=== PATIENT | male | born 1940 | race Caucasian/White ===

== ENCOUNTER 2019-09-25 11:07 | Outpatient (RCR) | payer MEDICARE, SELFPAY ==
[2019-09-25 11:24] LABS: INR 1.4; Prothrombin Time 17.1 Seconds (11.1-14.7)
== END 2019-12-24 23:59 | disposition home or self-care (01) ==
LOC: ANHLAB 11:07
DX: I48.20 Chronic atrial fibrillation, unspecified (principal); I11.0 Hypertensive heart disease with heart failure; I25.10 Atherosclerotic heart disease of native coronary artery without angina pectoris; Z95.2 Presence of prosthetic heart valve
CPT/HCPCS: 85610

== ENCOUNTER 2019-09-27 10:36 | Outpatient (RCR) | payer MEDICARE, SELFPAY ==
[2019-09-27 11:01] LABS: INR 1.5; Prothrombin Time 17.5 Seconds (11.1-14.7)
== END 2019-12-26 23:59 | disposition home or self-care (01) ==
LOC: ANHLAB 10:36
DX: Z48.812 Encounter for surgical aftercare following surgery on the circulatory system (principal); I25.10 Atherosclerotic heart disease of native coronary artery without angina pectoris; I11.0 Hypertensive heart disease with heart failure; I50.9 Heart failure, unspecified; Z95.2 Presence of prosthetic heart valve
CPT/HCPCS: 36415; 85610

== ENCOUNTER 2020-03-19 17:12 | Inpatient (IN) | payer MEDICARE, SELFPAY ==
--- NOTE | ~2020-03-19 | US_ITS ---
EXAMINATION: US venous doppler [facility] DATE: 03/19/2020 18:42 INDICATION: Left lower limb edema TECHNIQUE: Valentin scale images without and with compression and Doppler images of the left lower extrem ity veins were obtained. COMPARISON: None FINDINGS: There is thrombosis in one of two peroneal veins. The left common femoral vein, profunda fe moral vein, femoral vein, popliteal vein, posterior tibial veins, and greater saphenous vein are hylton nt. IMPRESSION: 1. Thrombosis in one of two peroneal veins. These findings were discussed with Dr. Triny Pulido MD in the Emergency Department at 1847 hours on 03/19/2020. Reviewed, dictated and finalized at location A. IMPRESSION: 1. Thrombosis in one of two peroneal veins. These findings were discussed with Dr. Triny Pulido MD in the Emergency Department at 1847 hours on 03/19/2020 .
--- NOTE | ~2020-03-19 | CT_ITS ---
EXAMINATION: CTA chest PE protocol DATE: 03/20/2020 09:07 INDICATION: Shortness of breath, deep venous thrombosis TECHNIQUE: Computed tomography angiography (CTA) of the chest was performed with 100 mL Omnipaque-350 intravenous contrast timed to evaluate the pulmonary arteries. Coronal maximum intensity projection 3D-reconstructions were created by the technologist. The dose-length product (DLP) was 986.62 mGy-cm. Automated exposure control and iterative reconstruction technique were employed. COMPARISON: None. FINDINGS: The pulmonary arteries are well-opacified. There are emboli in segmental pulmonary arterial branches of the right upper and lower lobes. There are small pleural effusions. Dependent atelectasi s is noted. There is no pneumothorax. The heart size is normal. There are changes of coronary artery bypass grafting. A nodule of the left thyroid lobe measures up to 1.8 cm. There are no pathologically enlarged thoracic lymph nodes. Stones are present in the nondistended gallbladder. There are bridgin g osteophytes at multiple levels in the spine, consistent with diffuse idiopathic skeletal hyperostos is (DISH). IMPRESSION: 1. Pulmonary emboli in the right upper and lower lobes. These findings were discussed with the janae t's nurse on [facility] at 1215 hours on 03/20/2020. Reviewed, dictated and finalized at location A. IMPRESSION: 1. Pulmonary emboli in the right upper and lower lobes. These findings were dis cussed with the patient's nurse on [facility] at 1215 hours on 03/20/2020.
--- NOTE | ~2020-03-19 | XR_ITS ---
EXAMINATION: XR foot LT min 3V DATE: 03/19/2020 18:02 INDICATION: Foot pain, plantar surface wound TECHNIQUE: Dorsoplantar, lateral, and 2 oblique views of the left foot were obtained. COMPARISON: None. FINDINGS: Soft tissue swelling and ulceration is seen projecting at the plantar aspect of the foot de ep to the the tarsometatarsal joints on the lateral view. No definite acute changes in the tarsal bon es is identified. There is advanced osteoarthritis of the midfoot as well as at the first metatarsoph alangeal joint. There appears to be a healed fracture of the fifth metatarsal. IMPRESSION: 1. Plantar soft tissue ulceration of the midfoot. 2. Severe polyarticular osteoarthritis without acute osseous abnormality identified. Reviewed, dictated and finalized at location A. IMPRESSION: 1. Plantar soft tissue ulceration of the midfoot. 2. Severe polyarticular osteoarthritis without acute osseous abnormality identi fied.
--- NOTE | ~2020-03-19 | CT_ITS ---
EXAMINATION: CT ankle LT wo con INDICATION: Plantar abscess of the left foot TECHNIQUE: Computed tomographic images of the left ankle were obtained without contrast. The dose-darin gth product (DLP) was 441.97 mGy-cm. Automated exposure control and iterative reconstruction techniqu e were employed. COMPARISON: None FINDINGS: There is extensive soft tissue edema of the left leg. The area of concern at the plantar as pect of the left foot is not included on this ankle CT. No abnormal focal enhancement is identified. There is advanced osteoarthritis of the proximal and midfoot. IMPRESSION: 1. Plantar soft tissue abscess the foot not evaluated on this ankle CT. This was discussed with Dr. Nadya burger and MRI of the foot would BE obtained. 2. Advanced osteoarthritis of the foot. 3. Diffuse edema. Reviewed, dictated and finalized at location A. IMPRESSION: 1. Plantar soft tissue abscess the foot not evaluated on this ankle CT. This wa s discussed with Dr. Herman and MRI of the foot would BE obtained. 2. Advanced osteoarthritis of the foot. 3. Diffuse edema.
--- NOTE | ~2020-03-19 | MR_ITS ---
IMPRESSION: 1. Ulceration at the plantar aspect of the left midfoot. No abscess or T1 marro w signal changes to suggest osteomyelitis. 2. Charcot foot. EXAMINATION: MR foot LT wo/w con DATE: 03/20/2020 13:20 INDICATION: Evaluate for abscess at the plantar aspect of the left foot. TECHNIQUE: Magnetic resonance imaging (MRI) of the left midfoot was performed without and with 20 mL Multihance intravenous contrast. Sequences included axial, sagittal and coronal T1-weighted FSE and T 2-weighted FS FSE, axial T1-weighted FS FSE and postcontrast axial and coronal T1-weighted FS FSE. COMPARISON: Left ankle CT dated 03/20/2020 and left foot radiographs dated 03/19/2020 FINDINGS: Old healed fracture deformity at the diaphysis of the left fifth metatarsal. Suggestion of pes planus with findings consistent with chronic Charcot approximately involving multiple joints in the midfoot characterized by joint space narrowing with disorganization and destructive changes of the tarsal jian neha with increased density on radiographs and CT. There is likely reactive subarticular marrow edema and enhancement as well as subarticular cystic changes involving several of the tarsal bones related to the osteoarthritis. There is however no evident geographic loss of T1 marrow fat signal to suggest osteomyelitis. Skin ulceration at the plantar aspect of the midfoot. Extensive likely reactive soft tissue edema throughout the foot. No joint effusions or abscess. Partially visualized first metatarso phalangeal arthroplasty. IMPRESSION: 1. Ulceration at the plantar aspect of the left midfoot. No abscess or T1 marrow signal changes to pretty ggest osteomyelitis. 2. Charcot foot. Reviewed, dictated and finalized at location A.
[2020-03-19 17:17] VITALS: BP 156/89; PULSE 65; RESP 20; TEMP 36.4; O2SAT 98
--- NOTE | 2020-03-19 17:20 | ED.EXTPRO ---
HPI - Extremity Problem General Chief complaint: Extremity Problem,Nontraumatic Stated complaint: left foot wound Time Seen by Provider: 03/19/20 17:20 Source: patient, family and EMS Mode of arrival: EMS Limitations: no limitations History of Present Illness HPI Narrative: Patient is a 79-year-old male who presents for evaluation of left foot pain. Patient reports a small sore showed up on his left foot approximately 3 weeks ago, it has since grown in size and is causing increased pain. Pain is dull, aching in nature. Patient has not noticed any purulent discharge, but does report the wound is malodorous. Patient reportedly without fever, chills, nausea or vomiting. No weakness or numbness. He denies history of diabetes. He denies any trauma to the foot or stepping on any foreign body. Patient has no history of skin infection in the past. Related Data Home Medications Medication Instructions Recorded Confirmed aspirin [Aspirin Childrens] 81 mg PO DAILY 09/11/19 09/11/19 polyethylene glycol 3350 [Miralax] 17 g PO DAILY 09/11/19 09/11/19 bupropion HCl 150 mg PO QAM 03/19/20 furosemide 20 mg PO DAILY 03/19/20 levetiracetam 1,000 mg PO BID 03/19/20 losartan 50 mg PO BID 03/19/20 spironolactone 12.5 mg PO QTUTHSA 03/19/20 Allergies Allergy/AdvReac Type Severity Reaction Status Date / Time Penicillins Allergy Unknown Other Verified 03/19/20 17:25 tomato Allergy Unknown Other Verified 03/19/20 17:25 Review of Systems Review of Systems: Narrative: CONSTITUTIONAL: Denies fever CARDIOVASCULAR: Denies chest pain RESPIRATORY: Denies cough or dyspnea. GASTROINTESTINAL: Denies abdominal pain SKIN: Denies rash, reports wound on the inferior aspect of the left foot MUSCULOSKELETAL: Denies back pain, reports left foot pain NEUROLOGIC: Denies headache PMFSH Past Medical History Medical History (Updated 03/19/20 @ 19:46 by Triny Pulido MD) Cardiac abnormality Epilepsy Epistaxis Hyperlipidemia Hypertension Mitral valve insufficiency Surgical History Surgical History H/O mitral valve replacement Social History Social History Smoking status: Never smoker Second hand tobacco smoke exposure: No Alcohol intake: never Substance use: never Gender identity (if verbalized by the patient): Male Spiritual care concerns: No Agree to blood products: No Exam Narrative: Exam Narrative: GENERAL: Awake, alert, conversant HEAD: Normocephalic, atraumatic. EYES: PERRLA and EOMI. ENT: Nares clear, no rhinorrhea or epistaxis. Mucous membranes moist. NECK: Supple. CHEST: No respiratory distress, breathing even and non labored, midline surgical scar clean, dry, intact, well-healed HEART: Regular rate, sinus rhythm ABDOMEN:Non distended, non tender, umbilical hernia, no sign of incarceration EXTREMITIES: Normal range of motion. Bilateral lower extremity edema, pitting 2+ to the knees, chronic venous stasis changes, stage III ulceration, possible tunneling, malodorous, no crepitus, edema, erythema and warmth of the left foot SKIN: Warm, dry, no rash. NEURO:No focal deficits. Alert and oriented x3 Course Course Emergency Course: Patient presented to the emergency department for evaluation of foot pain. Patient found to have a foot ulceration over the past 3 weeks. Very malodorous. Patient has chronic venous stasis changes. Laboratory results show no severe elevation in leukocyte count, however does have elevation in ESR. Patient with possible tunneling of the left foot wound. No overlying eschar. Based on imaging, no concern for osteomyelitis. Patient does have left lower extremity DVT. Patient will require anticoagulation, but would also benefit from debridement. Given difficulty with ambulation due to foot pain, concern for fall on anticoagulation, patient may benefit from debridement while in the hospit
--- NOTE | 2020-03-19 17:21 | ECG_ITS ---
Measurements Intervals [place] Rate: 64 P: -52 [place]: 154 QRS: 1 QRSD: 106 T: 19 QT: 422 QTc: 435 Interpretive Statements SINUS RHYTHM DELAYED PRECORDIAL R/S TRANSITION BORDERLINE T WAVE ABNORMALITY- INFERIOR LEADS BASELINE ARTIFACT- II, III, AVF BORDERLINE ECG Electronically Signed On 03-20-2020 9:04:19 CDT by Aravind Huntley D.O.
[2020-03-19 18:17] LABS: Basophils Percent Auto 0.6 % (0.2-1.2); Eosinophils Absolute Auto 0.1 K/mm3 (0-0.3); Eosinophils Percent Auto 1.7 % (0-4.4); Hematocrit 32.4 % (42.0-52.0); Hemoglobin 10.6 g/dL (14.0-18.0); Immature Granulocyte Absolute 0.03 K/mm3 (0.00-0.031); Immature Granulocyte Percent A 0.6 % (0-0.5); Lymphocytes Absolute Auto 1.15 K/mm3 (0.9-3.2); Mean Corpuscular HGB Conc 32.7 g/dl (32-36); Mean Corpuscular Hemoglobin 30.8 pg (26-34); Mean Corpuscular Volume 94.2 fl (80-100); Mean Platelet Volume 10.7 fl (7.4-10.4); Monocytes Absolute Auto 0.5 K/mm3 (0.1-0.6); Monocytes Percent Auto 10.6 % (2.6-8.5); Neutrophils Percent Auto 62.5 % (45.5-73.1); Platelet Count Result 163 k/mm3 (150-375); Red Blood Count 3.44 M/mm3 (4.6-6.20); Red Cell Distribution Width 13.3 % (11.5-14.5); White Blood Count 4.8 K/mm3 (4.5-10.0)
[2020-03-19 18:26] LABS: Blood Urea Nitrogen 16 mg/dL (9-20); CRP 0.9 mg/dL (<1.0); Calcium 8.6 mg/dL (8.4-10.2); Carbon Dioxide 29 mmol/L (22-30); Chloride 105 mmol/L (98-107); Estimated CRCL calculation 71 ml/min; Estimated Glomerular Filt Rate > 60; Glucose 90 mg/dL (75-110); Potassium 4.1 mmol/L (3.4-5.0); Sodium 139 mmol/L (137-145)
[2020-03-19 18:51] LABS: Erythrocyte Sedimentation Rate 61 mm/hr (0-20)
[2020-03-19 19:06] VITALS: BP 157/80; PULSE 62; RESP 20; O2SAT 97
--- NOTE | 2020-03-19 19:15 | PC.NURSE ---
Assumed care of pt at this time. report from CORNELIO Dimas
--- NOTE | 2020-03-19 20:00 | PC.NURSE ---
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
--- NOTE | 2020-03-19 20:30 | PC.NURSE ---
Pt states he did not call anyone to come get . states he just updated his daughter and did not know he was supposed to have someone come get her. pt states there is no one to come get her and she has to come upstairs. informed pt we are not allowing any visitors.
[2020-03-19] MEDS: ENOXAPARIN 80 MG/0.8 ML SYRINGE 130 MG SUB-Q (20:46)
--- NOTE | 2020-03-19 20:50 | PC.NURSE ---
Pt states he was able to get someone to come get . They are on the way and he is ready to go upstairs.
[2020-03-19 21:00] VITALS: BP 166/87; PULSE 78; RESP 18; O2SAT 97
[2020-03-19] MEDS: metroNIDAZOLE 500 MG/ISO 100ML 500 MG/100 ML BAG 100 MG IVPB (21:08)
--- NOTE | 2020-03-19 21:25 | ADMGEN ---
This patient, Ayo Rodriguez, was admitted to Medical Room 347-. Patient/family oriented to hospital policies and general routines including ID bracelet, bed and alarms, visiting hours, pain management, procedures, bathroom and other care routines, personal items, smoking policy, room service/diet, and visiting hours. Valuables list has been completed. Information on how to activate the Rapid Response Team has been discussed. Patient/Family are encouraged to report perceived risks to care and to ask questions if they do not understand what they are told or what they should do.
[2020-03-19 21:35] VITALS: BP 152/74; PULSE 57; RESP 18; TEMP 36.4; O2SAT 99
[2020-03-19 21:37] VITALS: BMI 37.1
[2020-03-20] MEDS: metroNIDAZOLE 500 MG/ISO 100ML 500 MG/100 ML BAG 100 MG IVPB ×2 (00:21→06:07)
--- NOTE | 2020-03-20 00:51 | PM.IMHP ---
H&P: HPI History of Present Illness Chief complaint: Left foot pain Narrative: Date and time of patient contact: 03/19/2020 at 11:05 p.m. Ayo Rodriguez is a 79 year old male with a past medical history of mitral and tricuspid valve repair August 2019, CHF, untreated obstructive sleep apnea, and seizure disorder who presented to the ER with a left foot wound. The patient reports that he has had 3 weeks of a wound on his left foot. He reports that it started out as a swollen white area about the size of the tip of his thumb. The pain was initially only occurring when he would walk on the area. However, over the last 2 or 3 days he reports that the pain is been at least moderate in severity and constant in nature even with his leg elevated. He tried to attempt to walk to the bathroom but found from side to side down the vail because he could not put any weight on the foot. He reported that over the course of the last couple of weeks the area of the wound has gotten larger. He reported that instead of feeling like he was walking on a BB he instead felt as if he was walking on a large ball he reports the pain is severe when attempting to ambulate. His has told him that there was some redness surrounding the wound over the last several days. He has not noticed any calf pain and less trying to walk on the ulcerated foot. He has noticed increased lower extremity swelling for the last couple of weeks. He also has noticed postnasal drip, and did increased dyspnea on exertion. He reports that and the last week or so he has been spending most of his time in the recliner. Initially stated that this was due to his foot pain. But it appears that the patient is also having some orthopnea and postnasal drip. He reports that he has gained 40 lb since November. He attributes this to his 's dementia getting worse and him eating to soothe himself. He has gained over 80 lb in the last couple of years. He denies any increased lower extremity swelling. He reports that his legs have been more dry and flaky. He does have difficulty starting and stopping his urinary stream, he also reports dribbling of urine. He denies decreased strength of urinary stream. He has had a long history of erectile dysfunction. He denies any dysuria or hematuria. Reports normally formed bowel movements without hematochezia or melena. He does snore and has a significant history of obstructive sleep apnea but has been completely noncompliant with his BiPAP for the last month and only used intermittently before that time. He denies any chest pain or palpitations. He does have multiple bad teeth but denies any acute oral pain. He reports feeling more depressed and stressed as well as anxious regarding his 's declining mentation. He is worried about staying in the hospital as a friend took his home today but may not be able to care for her the entire time he is in the hospital. His daughter lives in [place]. Review of Systems Review of Systems: Narrative: 12 systems were reviewed with pertinent positives and negatives per HPI. Except as documented in the HPI, all other systems were reviewed and are negative. [facility] Past Medical History Medical History (Updated 03/20/20 @ 04:09 by Cecelia Waller, ) Anxiety Depression Diastolic dysfunction Noted on echocardiogram from 2015 Epistaxis Erectile dysfunction Esophagitis determined by biopsy Noted from EGD August [address] Gupta Gastritis and duodenitis Noted on EGD August [address] Costa Hyperlipidemia Hypertension Kidney stones Mitral valve insufficiency Status post repair [facility] August 2019 Moderate pulmonary arterial systolic hypertension Noted on echocardiogram from 2015 with RVSP of 50 Obstructive sleep apnea With polysomnogram in 2009 recommending return to sleep lab for ASV titration as the patient was still having apneic events with settings of 18/
[2020-03-20 02:02] LABS: Glucose Point of Care 102 (65-105)
[2020-03-20 06:00] VITALS: BP 145/90; PULSE 66; RESP 20; TEMP 36.3; O2SAT 96
--- NOTE | 2020-03-20 07:56 | PM.CNGS ---
Assessment and Plan Assessment and plan (1) Left foot infection: Code(s): L08.9 - Local infection of the skin and subcutaneous tissue, unspecified Status: Acute Assessment and Plan: it appears he has a plantar abscess on the left foot. I will go ahead and get a stat CT scan of the left foot. If an abscess is verified, will proceed with incision and drainage later today. (2) Peroneal DVT (deep venous thrombosis): Qualifiers: Chronicity: acute Laterality: left Qualified Code(s): I82.452 - Acute embolism and thrombosis of left peroneal vein Code(s): I82.459 - Acute embolism and thrombosis of unspecified peroneal vein Status: Acute Assessment and Plan: I will go ahead and hold his morning dose of Lovenox in anticipation of incision and drainage of the left foot. 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 He has a history of CHF and underwent repair of both his mitral and tricuspid valves back in August of 2019. For the last 3 weeks he has noticed a superficial ulcer and pain in the lateral plantar aspect of his left foot. Recently this has gotten much worse and was associated with swelling. He denies having stepped on anything or foreign body type injury. He came to the emergency room where he was noted to have swelling of the left foot with an ulcer in the described location. His white blood cell count was normal at 4800. He is anemic. He is not diabetic but does have significant obesity with a BMI of 37. He is noted to have venous stasis changes of both lower extremities. Plain films of the foot in the emergency room showed a plantar ulcer and severe poly articular osteoarthritis. The patient also had a venous Doppler and had perineal vein thrombosis. He has been started on a therapeutic dose of Lovenox subcu Q 12. He is seen now in consultation regarding his left foot infection and plantar ulcer. Review of Systems Review of Systems: All systems reviewed & are unremarkable except as noted in HPI and below ( HPI) Constitutional: Constitutional: Denies headache(s) ENT: Denies headache(s) Cardiovascular: Cardiovascular: Denies chest pain and Denies dyspnea Respiratory: Respiratory: Denies cough and Denies dyspnea Gastrointestinal: Gastrointestinal: Reports as per HPI Neurologic: Denies confusion and Denies headache(s) Psychiatric: Psychiatric: Denies confusion PMF Past Medical History Medical History Anxiety Depression Diastolic dysfunction Noted on echocardiogram from 2015 Epistaxis Erectile dysfunction Esophagitis determined by biopsy Noted from EGD August [address] Gupta Gastritis and duodenitis Noted on EGD August [address] Costa Hyperlipidemia Hypertension Kidney stones Mitral valve insufficiency Status post repair [facility] August 2019 Moderate pulmonary arterial systolic hypertension Noted on echocardiogram from 2015 with RVSP of 50 Obstructive sleep apnea With polysomnogram in 2009 recommending return to sleep lab for ASV titration as the patient was still having apneic events with settings of 18/14 on BiPAP Paroxysmal atrial fibrillation Following valve repair procedure. No longer on anticoagulation. Seizure disorder Multiple episodes of transient global amnesia thought to be possible partial seizure Tricuspid valve insufficiency, non-rheumatic Status post repair [facility] August 2019 Surgical History Surgical History History of appendectomy History of inguinal hernia repair, bilateral History of mitral valve repair History of tricuspid valve repair August 2019 at [facility] with postoperative course complicated by
[2020-03-20] MEDS: ASPIRIN 81 MG CHEWABLE TABLET PO (08:16)
[2020-03-20] MEDS: AMLODIPINE BESYLATE 5 MG TABLET 10 MG PO (08:16)
[2020-03-20] MEDS: buPROPion HCL XL (24 HR) 150 MG TABCR PO (08:16)
[2020-03-20] MEDS: LOSARTAN POTASSIUM 50 MG TABLET PO ×2 (08:17→16:44)
[2020-03-20] MEDS: levETIRAcetam 500 MG TABLET 1000 MG PO ×2 (08:17→16:44)
[2020-03-20] MEDS: FUROSEMIDE 20 MG TABLET 60 MG PO (08:17)
[2020-03-20] MEDS: TAMSULOSIN HCL 0.4 MG CAPSULE PO (08:18)
[2020-03-20] MEDS: SPIRONOLACTONE 12.5 MG TABLET PO (08:18)
--- NOTE | 2020-03-20 11:01 | PM.IMPN ---
Progress Note: A&P Assessment and Plan (1) Foot ulcer, left: Qualifiers: Non-pressure ulcer stage: unspecified non-pressure ulcer stage Qualified Code(s): L97.529 - Non-pressure chronic ulcer of other part of left foot with unspecified severity Code(s): L97.529 - Non-pressure chronic ulcer of other part of left foot with unspecified severity Status: Acute Assessment and Plan: I am suspicious that the patient's vitals are may need to be debrided. General surgery was consulted from the ER who ordered a CT of the patient's left foot for further evaluation for possible abscess. CT did not show him the results that he wanted an MRI was ordered for further evaluation. Will continue broad-spectrum antibiotic therapy with Levaquin and vancomycin Blood cultures have been obtained and are pending Continue monitoring the patient's symptoms, pain control, will order PT/OT since he has not been able to get around very well. (2) Peroneal DVT (deep venous thrombosis): Qualifiers: Chronicity: acute Laterality: left Qualified Code(s): I82.452 - Acute embolism and thrombosis of left peroneal vein Code(s): I82.459 - Acute embolism and thrombosis of unspecified peroneal vein Status: Acute Assessment and Plan: Patient was given Lovenox 1 time in the ER. Will continue b.i.d. Lovenox. Once his decided whether not the patient needs surgical treatment/debridement of his wound we may be able to transition the patient to Eliquis. He has been on Eliquis in the past with atrial fibrillation. Given his accompanying dyspnea will check a CTA to rule out concomitant pulmonary embolism. If CT is negative for pulmony embolism we may need to increase the patient's Lasix therapy and diurese the patient given his orthopnea, weight gain and dyspnea on exertion he may be having some component of CHF exacerbation. Pending CTA results. (3) Obstructive sleep apnea: Code(s): G47.33 - Obstructive sleep apnea (adult) (pediatric) Status: Acute Assessment and Plan: I have discussed the importance of stay BiPAP therapy with the patient. He is reluctant to comply with BiPAP therapy. He reports that his bookmobile driver has tried to encourage him to uses BiPAP therapy multiple times in the past in the patient is still reluctant to comply with BiPAP use. (4) Diastolic dysfunction: Code(s): I51.89 - Other ill-defined heart diseases Status: Acute Assessment and Plan: Chronic but possibly acute with increased weight gain, crackles the chest, but denies any leg swelling. Will continue him on his home medications at this time CTA was ordered to see if dyspnea on exertion is secondary to acute PT verses acute CHF exacerbation. Continue monitoring patient's symptoms and adjust diuretics if necessary. Time Spent With Patient Time with patient: 25 - 35 minutes Subjective Date/time seen: 03/20/20 11:01 Interval history: Date of service 03/20/2020: Patient reports feeling well today. He still having increased pain to his left foot when he bears weight. He also reports shortness of breath with exertion and movement in bed. He is eating and drinking without any issues. He denies any fevers, chills, chest pain, cough, nausea, vomiting, abdominal pain, increased leg swelling, calf pain or any other symptoms at this time. Review of Systems Review of Systems: All systems reviewed & are unremarkable except as noted in HPI and below Exam Narrative: Exam Narrative: General: 79-year-old man sitting up in bed watching TV. Appears comfortable. In no acute distress. Skin: No jaundice or cyanosis. Good skin turgor. Neck: Full range of motion. Supple. Respiratory: Decreased lung sounds and air mo
[2020-03-20] MEDS: ENOXAPARIN 80 MG/0.8 ML SYRINGE 130 MG SUB-Q ×2 (11:26→21:33)
--- NOTE | 2020-03-20 12:33 | PC.NURSE ---
Notified JOO Denis that the Radiologist called with the results of the CTA. The patient has right upper and lower pulmonary embolisms.
--- NOTE | 2020-03-20 13:52 | PCPTNOTE ---
Spoke with Rn, PT to hold therapy and check tomorrow due to recent medical issues/changes. Bobbi Tidwell PT
[2020-03-20 14:00] VITALS: BP 126/77; PULSE 87; RESP 18; TEMP 37; O2SAT 98
[2020-03-20] MEDS: ACETAMINOPHEN 500 MG TABLET 1000 MG PO (19:44)
[2020-03-20 22:00] VITALS: BP 137/82; PULSE 83; RESP 16; TEMP 36.8; O2SAT 96
[2020-03-21 06:00] VITALS: BP 135/75; PULSE 85; RESP 20; TEMP 36.7; O2SAT 96
[2020-03-21 06:28] LABS: Basophils Percent Auto 0.6 % (0.2-1.2); Eosinophils Absolute Auto 0.1 K/mm3 (0-0.3); Eosinophils Percent Auto 1.8 % (0-4.4); Hematocrit 32.2 % (42.0-52.0); Hemoglobin 10.8 g/dL (14.0-18.0); Immature Granulocyte Absolute 0.02 K/mm3 (0.00-0.031); Immature Granulocyte Percent A 0.4 % (0-0.5); Lymphocytes Absolute Auto 1.03 K/mm3 (0.9-3.2); Lymphocytes Percent Auto 18.9 % (18.3-44.2); Mean Corpuscular HGB Conc 33.5 g/dl (32-36); Mean Corpuscular Hemoglobin 30.9 pg (26-34); Mean Platelet Volume 10.9 fl (7.4-10.4); Monocytes Absolute Auto 0.6 K/mm3 (0.1-0.6); Monocytes Percent Auto 10.1 % (2.6-8.5); Neutrophils Absolute Auto 3.7 K/mm3 (1.3-6.7); Neutrophils Percent Auto 68.2 % (45.5-73.1); Platelet Count Result 166 k/mm3 (150-375); Red Cell Distribution Width 13.2 % (11.5-14.5); White Blood Count 5.5 K/mm3 (4.5-10.0)
[2020-03-21 06:41] LABS: Blood Urea Nitrogen 14 mg/dL (9-20); Calcium 8.5 mg/dL (8.4-10.2); Carbon Dioxide 30 mmol/L (22-30); Chloride 101 mmol/L (98-107); Estimated CRCL calculation 60 ml/min; Estimated Glomerular Filt Rate 54; Glucose 106 mg/dL (75-110); Potassium 3.4 mmol/L (3.4-5.0); Sodium 136 mmol/L (137-145)
[2020-03-21] MEDS: ASPIRIN 81 MG CHEWABLE TABLET PO (08:08)
[2020-03-21] MEDS: TAMSULOSIN HCL 0.4 MG CAPSULE PO (08:08)
[2020-03-21] MEDS: levETIRAcetam 500 MG TABLET 1000 MG PO ×2 (08:08→17:19)
[2020-03-21] MEDS: AMLODIPINE BESYLATE 5 MG TABLET 10 MG PO (08:09)
[2020-03-21] MEDS: FUROSEMIDE 20 MG TABLET 60 MG PO (08:09)
[2020-03-21] MEDS: LOSARTAN POTASSIUM 50 MG TABLET PO ×2 (08:09→17:19)
[2020-03-21] MEDS: buPROPion HCL XL (24 HR) 150 MG TABCR PO (08:09)
[2020-03-21] MEDS: ENOXAPARIN 80 MG/0.8 ML SYRINGE 130 MG SUB-Q ×2 (08:10→20:10)
--- NOTE | 2020-03-21 11:31 | PM.PNGS ---
Progress Note: A&P Assessment and Plan (1) Left foot infection: Code(s): L08.9 - Local infection of the skin and subcutaneous tissue, unspecified Status: Acute Assessment and Plan: improving with antibiotics. No abscess seen on imaging. Continue present treatment. (2) Charcot's joint of foot: Code(s): M14.679 - Charcot's joint, unspecified ankle and foot Status: Chronic Assessment and Plan: Noted on MRI of the foot. Subjective Subjective Date/Time Seen: 03/21/20 11:31 Patient reports: no new complaints and feels better ( pain is better in his left foot) Review of Systems Review of Systems: All systems reviewed & are unremarkable except as noted in HPI and below Constitutional: Constitutional: Denies headache(s) ENT: Denies headache(s) Cardiovascular: Cardiovascular: Denies chest pain and Denies dyspnea Respiratory: Respiratory: Denies cough and Denies dyspnea Gastrointestinal: Gastrointestinal: Reports as per HPI Neurologic: Denies confusion and Denies headache(s) Psychiatric: Psychiatric: Denies confusion Exam Const: General: comfortable and no acute distress; No confusion Orientation/consciousness: patient oriented x3 and No confusion Neuro: General: patient oriented x3, no focal motor deficits and No confusion Extrem: Left lower extremity: foot ( plantar ulcer with swelling is less tender today, no drainage) Psych: Affect: normal affect Insight: Good insight present (Psych) Judgement: Good judgement present (Psych) Objective Data Vital Signs Vital Signs: Vital Signs - 24 hr 03/20/20 14:00 03/20/20 22:00 03/21/20 06:00 Temperature 37.0 C 36.8 C 36.7 C Pulse Rate 87 83 85 Respiratory Rate 18 16 20 Blood Pressure 126/77 137/82 135/75 Pulse Oximetry 98 96 96 Intake/Output Intake/Output: Intake & Output 03/18/20 03/19/20 03/20/20 03/21/20 23:59 23:59 23:59 23:59 Intake Total 150 2690 680 Output Total 2630 350 Balance 150 60 330 Meds/Results Medications: Active Medications Generic Name Dose Route Start Last Admin Trade Name Freq PRN Reason Stop Dose Admin Acetaminophen 1,000 mg 03/20/20 00:50 03/20/20 19:44 Tylenol Tablet PO 1,000 mg Q6H PRN Administration Mild Pain (1-3) Or Fever Amlodipine Besylate 10 mg 03/20/20 09:00 03/21/20 08:09 Norvasc PO 10 mg DAILY TARYN Administration Aspirin 81 mg 03/20/20 08:00 03/21/20 08:08 Aspirin Chewable PO 81 mg DAILY@0800 TARYN Administration Bupropion HCl 150 mg 03/20/20 09:00 03/21/20 08:09 Wellbutrin Xl (24 Hr) PO 150 mg QAM TARYN Administration Enoxaparin Sodium 130 mg 03/20/20 09:00 03/21/20 08:10 Lovenox SUB-Q 130 mg Q12HR TARYN Administration Furosemide 60 mg 03/20/20 09:00 03/21/20 08:09 Lasix Tablet PO 60 mg DAILY TARYN Administration Levofloxacin/Dextrose 750 mg in 150 mls @ 100 mls/hr 03/20/20 18:00 03/20/20 20:10 Levaquin 750 Mg/D5w 150 Ml IVPB Infused QPM TARYN Infusion Vancomycin HCl 2,000 mg in 500 mls @ 250 mls/hr 03/19/20 22:00 03/21/20 09:45 Vancomycin 2,000 Mg/D5w 500 Ml IVPB 250 mls/hr Q18H TARYN Administration Levetiracetam 1,000 mg 03/20/20 09:00 03/21/20 08:08 Keppra Tablet PO 1,000 mg BID TARYN Administration Losartan Potassium 50 mg 03/20/20 09:00 03/21/20 08:09 Cozaar PO 50 mg BID TARYN Administration Polyethylene Glycol 17 gm 03/20/20 09:00 03/21/20 08:15 Miralax PO Not Given DAILY [facility] Spironolactone 12.5 mg 03/20/20 09:00 03/20/20 08:18 Aldactone PO 12.5 mg TuThSa@0900 TARYN Administration Tamsulosin HCl 0.4 mg 03/20/20 09:00 03/21/20 08:08 Flomax PO 0.4 mg QAM TARYN Administration Radiology Results: ITS Impressions Foot X-Ray 03/19/20 18:15 IMPRESSION: 1. Plantar soft tissue ulceration of the midfoot. 2. Severe polyarticular osteoarthritis without acute osseous abnormality identified. Venous Doppler Study
[2020-03-21 14:00] VITALS: BP 126/78; PULSE 79; RESP 18; TEMP 36.5; O2SAT 95
--- NOTE | 2020-03-21 16:04 | PM.IMPN ---
Progress Note: A&P Assessment and Plan (1) Foot ulcer, left: Qualifiers: Non-pressure ulcer stage: unspecified non-pressure ulcer stage Qualified Code(s): L97.529 - Non-pressure chronic ulcer of other part of left foot with unspecified severity Code(s): L97.529 - Non-pressure chronic ulcer of other part of left foot with unspecified severity Status: Acute Assessment and Plan: I am suspicious that the patient's vitals are may need to be debrided. General surgery was consulted from the ER who ordered a CT of the patient's left foot for further evaluation for possible abscess. CT ankle did not show his foot very well. MRI of his foot showed Ulceration at the plantar aspect of the left midfoot. No abscess or T1 marrow signal changes to suggest osteomyelitis. Charcot foot. Will continue broad-spectrum antibiotic therapy with Levaquin and vancomycin Blood cultures have been obtained and are pending Dr. Herman general surgery consulted Dr. Tristan orthopedic surgeon for further evaluation on the patient's findings and Charcot foot Continue monitoring the patient's symptoms, pain control, will order PT/OT since he has not been able to get around very well. (2) Charcot's joint of foot: Code(s): M14.679 - Charcot's joint, unspecified ankle and foot Status: Chronic Assessment and Plan: See above (3) Peroneal DVT (deep venous thrombosis): Qualifiers: Chronicity: acute Laterality: left Qualified Code(s): I82.452 - Acute embolism and thrombosis of left peroneal vein Code(s): I82.459 - Acute embolism and thrombosis of unspecified peroneal vein Status: Acute Assessment and Plan: Patient was given Lovenox 1 time in the ER. Will continue b.i.d. Lovenox. Once his decided whether not the patient needs surgical treatment/debridement of his wound we may be able to transition the patient to Eliquis. He has been on Eliquis in the past with atrial fibrillation. CTA chest shows pulmonary emboli in the right upper and lower lobes. It also shows some small pleural effusions. Will continue with anticoagulation for DVT and PE and plan is to discharge him on Eliquis once ready. (4) Pulmonary embolism: Code(s): I26.99 - Other pulmonary embolism without acute cor pulmonale Status: Acute Assessment and Plan: CT found pulmonary embolism to the right upper and lower lobes. Plan is to continue anticoagulation and discharged on Eliquis. Since he has PEs we will order an echocardiogram of his heart for further evaluation to make sure he is not have any right heart strain. (5) Diastolic dysfunction: Code(s): I51.89 - Other ill-defined heart diseases Status: Acute Assessment and Plan: Chronic but possibly acute with increased weight gain, crackles the chest, but denies any leg swelling. CTA found an acute PT. No signs of acute CHF exacerbation. Will continue his home medications for CHF. Continue monitoring patient's symptoms and adjust diuretics if necessary. (6) Obstructive sleep apnea: Code(s): G47.33 - Obstructive sleep apnea (adult) (pediatric) Status: Acute Assessment and Plan: I have discussed the importance of stay BiPAP therapy with the patient. He is reluctant to comply with BiPAP therapy. 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 Time Spent With Patient Time with patient: 25 - 35 minutes Subjective Date/time seen: 03/21/20 16:04 Interval history: Date of service 03/21/2020: Patient reports feel
[2020-03-21 22:00] VITALS: BP 131/72; PULSE 90; RESP 18; TEMP 36.8; O2SAT 97
--- NOTE | 2020-03-22 | ECHO_ITS ---
Patient Info Name: Ayo Rodriguez Age: 79 years : 1940 Gender: Male Ht: 71 in Wt: 281 lbs BSA: 2.58 m2 BP: 124 / 75 mmHg Heart Rhythm: Sinus Rhythm Technical Quality: Good Exam Date: 03/22/2020 2:30 PM Exam Location: [facility] Patient Status: Inpatient Admit Date: 03/22/2020 Staff Ordering Physician: Sparkle Medeiros PA-C Jack Machine Operator: Neftaly Diaz RDCS, RT Attending Provider: Sparkle Medeiros PA-C Referring Physician: Mala HIGUERA; Exam Type: CA echo dop color flow w con Study Info Indications I50.9 - Heart failure, unspecified Complete two-dimensional, color flow and Doppler transthoracic echocardiogram is performed. Summary 1. Left ventricular chamber dimension is normal. 2. Left ventricular systolic function is normal, estimated at 65-70%. 3. There is moderately increased left ventricular wall thickness. 4. Left ventricular septal wall motion is normal. 5. The left ventricular diastolic function is grade I diastolic dysfunction. 6. Right ventricular chamber dimension is mildly enlarged. 7. Left atrial chamber dimension is mildly enlarged. 8. The mitral valve has calcified leaflets and calcified annulus. 9. There is mild to moderate mitral valve regurgitation. 10. There is mild pulmonic regurgitation. 11. The aorta arch size is mildly dilated measuring 3.60 cm. 12. The aortic root size at the sinus of Valsalva is mildly dilated. Left Ventricle Left ventricular chamber dimension is normal. Left ventricular systolic function is normal, estimated at 65-70%. There is moderately increased left ventricular wall thickness. Left ventricular septal wall motion is normal. The left ventricular diastolic function is grade I diastolic dysfunction. Right Ventricle Right ventricular chamber dimension is mildly enlarged. Right ventricular systolic function is normal. Left Atria Left atrial chamber dimension is mildly enlarged. Right Atria Right atrial chamber dimension is normal. Atrial Septum Intact interatrial septum visualized by color flow imaging. Aortic Valve The aortic valve is trileaflet. There is mild aortic valve sclerosis. There is no aortic valve stenosis. There is trace aortic valve regurgitation. Pulmonic Valve The pulmonic valve is normal. There is no pulmonic valve stenosis. There is mild pulmonic regurgitation. Mitral Valve The mitral valve has calcified leaflets and calcified annulus. There is no mitral valve stenosis. There is mild to moderate mitral valve regurgitation. Tricuspid Valve The tricuspid valve leaflets are normal. There is no significant tricuspid valve stenosis. There is trace tricuspid valve regurgitation. Pericardium/Pleural The pericardium appears normal. There is no pericardial effusion. Inferior Vena Cava Normal inferior vena cava with >50% collapse upon inspiration consistent with normal right atrial pressure, 5 mmHg. Aorta The aorta arch size is mildly dilated measuring 3.60 cm. The aortic root size at the sinus of Valsalva is mildly dilated. The prox ascending aorta size is normal. Left Ventricular Outflow Tract Name Value Normal LVOT 2D LVOT Diameter 2.09 cm LVOT Doppl
[2020-03-22 03:42] LABS: Blood Urea Nitrogen 13 mg/dL (9-20); Calcium 8.4 mg/dL (8.4-10.2); Carbon Dioxide 31 mmol/L (22-30); Chloride 101 mmol/L (98-107); Estimated CRCL calculation 56 ml/min; Estimated Glomerular Filt Rate 49; Glucose 101 mg/dL (75-110); Magnesium 1.9 mg/dL (1.6-2.3); Potassium 3.4 mmol/L (3.4-5.0); Sodium 137 mmol/L (137-145)
[2020-03-22 03:56] LABS: Hematocrit 33.2 % (42.0-52.0); Hemoglobin 10.9 g/dL (14.0-18.0); Mean Corpuscular HGB Conc 32.8 g/dl (32-36); Mean Corpuscular Volume 94.3 fl (80-100); Mean Platelet Volume 11.4 fl (7.4-10.4); Platelet Count Result 156 k/mm3 (150-375); Red Blood Count 3.52 M/mm3 (4.6-6.20); Red Cell Distribution Width 13.4 % (11.5-14.5); White Blood Count 5.2 K/mm3 (4.5-10.0)
[2020-03-22 05:32] LABS: Vancomycin Trough 16.4 ug/mL (10.0-20.0)
[2020-03-22 05:53] VITALS: BP 124/75; PULSE 84; RESP 16; TEMP 37; O2SAT 98
--- NOTE | 2020-03-22 07:46 | PM.PNGS ---
Progress Note: A&P Assessment and Plan (1) Left foot infection: Code(s): L08.9 - Local infection of the skin and subcutaneous tissue, unspecified Status: Acute Assessment and Plan: improving with antibiotics. No abscess by MRI of the foot. I will go ahead and consult Dr. Tristan to see if anything further can be done. I really have nothing more to offer. (2) Charcot's joint of foot: Code(s): M14.679 - Charcot's joint, unspecified ankle and foot Status: Chronic Assessment and Plan: Dr. Tristan to see. (3) Pulmonary embolism: Code(s): I26.99 - Other pulmonary embolism without acute cor pulmonale Status: Acute Assessment and Plan: CTA shows right upper lobe and right lower lobe emboli. On therapeutic dose of Lovenox. Subjective Subjective Date/Time Seen: 03/22/20 07:46 Patient reports: feels better and pain is less Interval history: Has been walking to the bathroom on his left foot with little discomfort. He is using a walker. Review of Systems Review of Systems: All systems reviewed & are unremarkable except as noted in HPI and below Constitutional: Constitutional: Denies headache(s) ENT: Denies headache(s) Cardiovascular: Cardiovascular: Denies chest pain and Denies dyspnea Respiratory: Respiratory: Denies cough and Denies dyspnea Gastrointestinal: Gastrointestinal: Reports as per HPI Neurologic: Denies confusion and Denies headache(s) Psychiatric: Psychiatric: Denies confusion Exam Const: General: comfortable and no acute distress; No confusion Orientation/consciousness: patient oriented x3 and No confusion Neuro: General: patient oriented x3, no focal motor deficits and No confusion Extrem: General: no calf tenderness bilaterally and edema bilateral ( Lymphedema has improved during hospitalization.) Left lower extremity: foot ( Plantar ulcer with swelling less tender, no drainage) Details: other ( Appearance has change little other than tenderness is much better) Psych: Affect: normal affect Insight: Good insight present (Psych) Judgement: Good judgement present (Psych) Objective Data Vital Signs Vital Signs: Vital Signs - 24 hr 03/21/20 14:00 03/21/20 22:00 03/22/20 05:53 Temperature 36.5 C 36.8 C 37.0 C Pulse Rate 79 90 84 Respiratory Rate 18 18 16 Blood Pressure 126/78 131/72 124/75 Pulse Oximetry 95 97 98 Intake/Output Intake/Output: Intake & Output 03/19/20 03/20/20 03/21/20 03/22/20 23:59 23:59 23:59 23:59 Intake Total 150 2690 3090 Output Total 2630 2790 Balance 150 60 300 Meds/Results Medications: Active Medications Generic Name Dose Route Start Last Admin Trade Name Freq PRN Reason Stop Dose Admin Acetaminophen 1,000 mg 03/20/20 00:50 03/20/20 19:44 Tylenol Tablet PO 1,000 mg Q6H PRN Administration Mild Pain (1-3) Or Fever Amlodipine Besylate 10 mg 03/20/20 09:00 03/21/20 08:09 Norvasc PO 10 mg DAILY TARYN Administration Aspirin 81 mg 03/20/20 08:00 03/21/20 08:08 Aspirin Chewable PO 81 mg DAILY@0800 TARYN Administration Bupropion HCl 150 mg 03/20/20 09:00 03/21/20 08:09 Wellbutrin Xl (24 Hr) PO 150 mg QAM TARYN Administration Enoxaparin Sodium 130 mg 03/20/20 09:00 03/21/20 20:10 Lovenox SUB-Q 130 mg Q12HR TARYN Administration Furosemide 60 mg 03/20/20 09:00 03/21/20 08:09 Lasix Tablet PO 60 mg DAILY TARYN Administration Levofloxacin/Dextrose 750 mg in 150 mls @ 100 mls/hr 03/20/20 18:00 03/21/20 20:10 Levaquin 750 Mg/D5w 150 Ml IVPB Infused QPM TARYN Infusion Vancomycin HCl 2,000 mg in 500 mls @ 250 mls/hr 03/22/20 10:00 Vancomycin 2,000 Mg/D5w 500 Ml IVPB Q24H TARYN Levetiracetam 1,000 mg 03/20/20 09:00 03/21/20 17:19 Keppra Tablet PO 1,000 mg BID TARYN Administration Losartan Potassium 50 mg 03/20/20 09:00 03/21/20 17:19 Cozaar PO 50 mg BID TARYN Administration Polyethylene Glycol
[2020-03-22] MEDS: levETIRAcetam 500 MG TABLET 1000 MG PO ×2 (08:39→16:36)
[2020-03-22] MEDS: buPROPion HCL XL (24 HR) 150 MG TABCR PO (08:39)
[2020-03-22] MEDS: AMLODIPINE BESYLATE 5 MG TABLET 10 MG PO (08:39)
[2020-03-22] MEDS: FUROSEMIDE 20 MG TABLET 60 MG PO (08:40)
[2020-03-22] MEDS: TAMSULOSIN HCL 0.4 MG CAPSULE PO (08:40)
[2020-03-22] MEDS: LOSARTAN POTASSIUM 50 MG TABLET PO ×2 (08:40→16:36)
[2020-03-22] MEDS: ASPIRIN 81 MG CHEWABLE TABLET PO (08:40)
[2020-03-22] MEDS: ENOXAPARIN 80 MG/0.8 ML SYRINGE 130 MG SUB-Q ×2 (08:40→22:03)
[2020-03-22] MEDS: EUCERIN CREAM 120 GM JAR 1 APPLIC TOPICAL (10:04)
--- NOTE | 2020-03-22 10:53 | PM.IMPN ---
Progress Note: A&P Assessment and Plan (1) Foot ulcer, left: Qualifiers: Non-pressure ulcer stage: unspecified non-pressure ulcer stage Qualified Code(s): L97.529 - Non-pressure chronic ulcer of other part of left foot with unspecified severity Code(s): L97.529 - Non-pressure chronic ulcer of other part of left foot with unspecified severity Status: Acute Assessment and Plan: I am suspicious that the patient's wound may need to be debrided. General surgery was consulted from the ER who ordered a MRI of his foot showing Ulceration at the plantar aspect of the left midfoot. No abscess or T1 marrow signal changes to suggest osteomyelitis. Charcot foot. Dr. Herman general surgery consulted Dr. Tristan orthopedic surgeon for further evaluation on the patient's findings and Charcot foot. Initial blood culture results returned and 1 anaerobic bottle is growing Gram-positive bacilli. The other bottle shows no growth at this time Will continue broad-spectrum antibiotic therapy with Levaquin and vancomycin Continue monitoring the patient's symptoms, pain control, will order PT/OT since he has not been able to get around very well. 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 The last few days the patient has had some friends stay with her but he is running out of options. The patient does have a daughter who lives in [place] but states he does not want to bother her. He states he might need to leave against medical advice if cannot find any assistance for his . I told him that if he leaves against medical advice then he has the risk of having a worsening blood infection, becoming septic and dying. The patient understands the risks and he will try and make other arrangements before his last option which would be leaving against medical advice. (2) Charcot's joint of foot: Code(s): M14.679 - Charcot's joint, unspecified ankle and foot Status: Chronic Assessment and Plan: See above (3) Peroneal DVT (deep venous thrombosis): Qualifiers: Chronicity: acute Laterality: left Qualified Code(s): I82.452 - Acute embolism and thrombosis of left peroneal vein Code(s): I82.459 - Acute embolism and thrombosis of unspecified peroneal vein Status: Acute Assessment and Plan: Acute PE and DVT most likely from increased sedentary lifestyle, and sleeping in a chair with his legs on the ground. Patient has been on Lovenox b.i.d. for treatment of his PE and DVT. Once his decided whether not the patient needs surgical treatment/debridement of his wound we may be able to transition the patient to Eliquis. He has been on Eliquis in the past with atrial fibrillation. CTA chest shows pulmonary emboli in the right upper and lower lobes. It also shows some small pleural effusions. Will continue with anticoagulation for DVT and PE and plan is to discharge him on Eliquis once ready. (4) Pulmonary embolism: Code(s): I26.99 - Other pulmonary embolism without acute cor pulmonale Status: Acute Assessment and Plan: Acute PE. CT found pulmonary embolism to the right upper and lower lobes. Plan is to continue anticoagulation and discharged on Eliquis. Pending echocardiogram results. Since he has PEs we will order an echocardiogram of his heart for further evaluation to make sure he is not have any right heart strain. (5) Diastolic dysfunction: Code(s): I51.89 - Other ill-defined heart diseases Status: Acute Assessment and Plan: Chronic but possibly acute with increased weight gain, crackles the chest, but denies any leg swelling. CTA found an acute PE. No signs of acute CHF exacerbation. Will
[2020-03-22 14:00] VITALS: BP 146/65; PULSE 78; RESP 16; TEMP 36.2; O2SAT 96
--- NOTE | 2020-03-22 14:27 | PM.CNOR ---
Assessment and Plan Assessment and plan (1) Foot ulcer, left: Qualifiers: Non-pressure ulcer stage: unspecified non-pressure ulcer stage Qualified Code(s): L97.529 - Non-pressure chronic ulcer of other part of left foot with unspecified severity Code(s): L97.529 - Non-pressure chronic ulcer of other part of left foot with unspecified severity Status: Acute Assessment and Plan: Orthopedic consult for left plantar foot ulcer. Superficial area on the plantar aspect of the left midfoot which does not probe beneath the skin surface. Radiographs/MRI of the left foot reveal Charcot and ulcer without evidence of osteomyelitis or abscess at this time. Marked improvement in erythema surrounding wound per hospitalist, nurse and patient s/p IV antibiotics. History, exam and radiographs reviewed with the patient. Condition, nature, etiology and course of natural history discussed. Conservative and operative treatment options reviewed as well as the risks and benefits of both. 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 Given wound is not currently open, patient may benefit from conservative treatment and monitoring as an outpatient. Plan to continue antibiotics per hospitalist at this time given positive blood cultures. . Patient to be fit with Fracture Boot for the LLE. Apply mepitel boarder dressing for additional cushioning. Pull back dressing daily for skin assessment. Change every 2 days. Walker for PWB on heel. Keep pressure off midfoot. Elevate b/l feet when in bed. Follow up as an outpatient in the [facility] wound clinic for further monitoring and potential surgical intervention in the future once wound declares itself. Will set appointment pending discharge planning. (2) Charcot's joint of foot: Qualifiers: Laterality: left Qualified Code(s): M14.672 - Charcot's joint, left ankle and foot Code(s): M14.679 - Charcot's joint, unspecified ankle and foot Status: Chronic Assessment and Plan: Patient will need custom orthotics/depth shoes pending closure of superficial foot ulcer. History of Present Illness HPI Consult date: 03/22/20 Requesting physician: Lauri Herman MD Consult reason: other (Left Plantar Foot Ulcer ) Chief complaint: Infected foot wound, DVT Narrative: 79 year old male admitted with a left plantar DFU which began approximately 3 weeks ago. Per patient report, he was previously evaluated for Charcot of the left foot by a doctor in [place], [place] 2 years ago and fitted for orthotics. He is not currently followed by a physician or carpet renovator and has not ever worn his orthotics/depth shoes as he does not feel they are wide enough and hurt his feet more. He first noticed the area of concern on the plantar aspect of the left foot 3 weeks ago with increasing pain over the last several days, prompting him to call EMS for transportation to the hospital. He underwent a foot xray upon admission which revealed a plantar soft tissue ulceration of the midfoot and severe polyarticular osteoarthritis. An MRI of the foot confirms Charcot and no abscess of the ulceration or changes to suggest osteomyelitis. Orthopedic surgery consult was requested by general surgery. 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 Review of Systems Constitutional: Constitutional: Denies chills, Denies fatigue and Denies weakness Eyes: Eyes: Denies blurry vision Cardiovascular: Cardiovascular: Denies chest pain, Reports pedal edema (left ), Reports leg edema (bilateral LE ) and Denies lightheadedness Respiratory: Respiratory: Denies cough and Denies dyspnea Gastrointestinal: Gastrointestinal: Denies abdominal pain, Denies diarrhea, Denies nausea and Denies vomiting Comments: hernia Genitourinary: Genitourinary: Denies dysuria Musculoskeletal: Musculoskeletal:
[2020-03-22] MEDS: PERFLUTREN LIPID MICROSPHERES 1.5 ML VIAL DILUTED TO 10 ML TOTAL VOLUME IV PUSH (15:49)
[2020-03-22 20:55] VITALS: BP 140/75; PULSE 97; RESP 14; TEMP 36.9; O2SAT 94
[2020-03-22 22:00] VITALS: PULSE 97; RESP 14; O2SAT 94
[2020-03-23 05:38] LABS: Basophils Percent Auto 0.4 % (0.2-1.2); Eosinophils Absolute Auto 0.1 K/mm3 (0-0.3); Eosinophils Percent Auto 1.3 % (0-4.4); Hematocrit 33.4 % (42.0-52.0); Immature Granulocyte Absolute 0.05 K/mm3 (0.00-0.031); Immature Granulocyte Percent A 0.7 % (0-0.5); Lymphocytes Percent Auto 14.8 % (18.3-44.2); Mean Corpuscular HGB Conc 32.9 g/dl (32-36); Mean Corpuscular Hemoglobin 30.8 pg (26-34); Mean Corpuscular Volume 93.6 fl (80-100); Mean Platelet Volume 11.3 fl (7.4-10.4); Monocytes Absolute Auto 0.8 K/mm3 (0.1-0.6); Monocytes Percent Auto 12.3 % (2.6-8.5); Neutrophils Absolute Auto 4.8 K/mm3 (1.3-6.7); Neutrophils Percent Auto 70.5 % (45.5-73.1); Platelet Count Result 159 k/mm3 (150-375); Red Blood Count 3.57 M/mm3 (4.6-6.20); Red Cell Distribution Width 13.2 % (11.5-14.5); White Blood Count 6.8 K/mm3 (4.5-10.0)
[2020-03-23 05:52] LABS: Blood Urea Nitrogen 19 mg/dL (9-20); Calcium 8.6 mg/dL (8.4-10.2); Carbon Dioxide 32 mmol/L (22-30); Chloride 101 mmol/L (98-107); Estimated CRCL calculation 56 ml/min; Estimated Glomerular Filt Rate 49; Glucose 130 mg/dL (75-110); Potassium 3.2 mmol/L (3.4-5.0); Sodium 136 mmol/L (137-145)
[2020-03-23 06:00] VITALS: BP 124/72; PULSE 81; RESP 18; TEMP 36.9; O2SAT 94
[2020-03-23] MEDS: levETIRAcetam 500 MG TABLET 1000 MG PO ×2 (08:12→17:45)
[2020-03-23] MEDS: FUROSEMIDE 20 MG TABLET 60 MG PO (08:13)
[2020-03-23] MEDS: SPIRONOLACTONE 12.5 MG TABLET PO (08:13)
[2020-03-23] MEDS: buPROPion HCL XL (24 HR) 150 MG TABCR PO (08:13)
[2020-03-23] MEDS: TAMSULOSIN HCL 0.4 MG CAPSULE PO (08:13)
[2020-03-23] MEDS: ASPIRIN 81 MG CHEWABLE TABLET PO (08:13)
[2020-03-23] MEDS: LOSARTAN POTASSIUM 50 MG TABLET PO ×2 (08:13→17:45)
[2020-03-23] MEDS: AMLODIPINE BESYLATE 5 MG TABLET 10 MG PO (08:13)
[2020-03-23] MEDS: ENOXAPARIN 80 MG/0.8 ML SYRINGE 130 MG SUB-Q ×2 (08:14→20:06)
[2020-03-23] MEDS: EUCERIN CREAM 120 GM JAR 1 APPLIC TOPICAL (08:15)
--- NOTE | 2020-03-23 09:44 | PCOTNOTE ---
Attempted to see patient this AM for skilled OT, however, patient refused at this time due to not feeling well. Will attempt to see patient for OT again later this date.
[2020-03-23] MEDS: ACETAMINOPHEN 500 MG TABLET 1000 MG PO (10:06)
--- NOTE | 2020-03-23 12:52 | PCOTNOTE ---
Attempted to see patient for skilled OT, however, patient declined to participate in any ADL task or functional mobility or UB exercise at this time. Patient stated, I know I need to shower, but I might be going home tomorrow so I want to wait until then. Even if I don't end up going, I will shower tomorrow. Patient adamantly refused any other treatment interventions at this time, despite therapist educating patient on importance of participating in therapy to improve wellness. Will continue plan of care tomorrow, 03/24/2020.
[2020-03-23 14:11] VITALS: BP 113/67; PULSE 81; RESP 18; TEMP 37.1; O2SAT 98
--- NOTE | 2020-03-23 14:39 | PM.PNORT ---
Progress Note: A&P Assessment and Plan (1) Neuropathic ulcer of left foot with fat layer exposed: Code(s): L97.522 - Non-pressure chronic ulcer of other part of left foot with fat layer exposed Status: Acute Assessment and Plan: patient seen and examined. Chart reviewed. Radiographs, CT scan and MRI reviewed. No evidence of infection at this time. No evidence of abscess. No indication for urgent surgical treatment. At this time the ulcer is relatively superficial and has no drainage. Recommend continue with pressure offloading with Mepilex foam and fracture boot. Patient is indicated for custom shoe wear and custom inserts with pressure relief. We will give him a prescription to follow up with that on an outpatient basis. Discussed operative treatment. This would be more of a reconstructive type option. Patient does not want to proceed with that at this time. He is okay for discharge from orthopedic standpoint. (2) Charcot's joint of foot: Qualifiers: Laterality: left Qualified Code(s): M14.672 - Charcot's joint, left ankle and foot Code(s): M14.679 - Charcot's joint, unspecified ankle and foot Status: Chronic Assessment and Plan: Chronic condition with breakdown of the midfoot. Reviewed with patient. Surgical option with excision prominent bone and reconstruction of the foot reviewed with the patient. He has declined at this time. Continue with conservative care and we can follow as an outpatient. Subjective Subjective Date/Time Seen: 03/23/20 14:39 Patient seen and examined. Dressing left foot removed and evaluated. Patient with mild pain left foot but states improved. Orthopedic consult note reviewed. Review of Systems Constitutional: Constitutional: Denies chills, Denies fatigue and Denies weakness Eyes: Eyes: Denies blurry vision Cardiovascular: Cardiovascular: Denies chest pain, Reports pedal edema (left ), Reports leg edema (bilateral LE ) and Denies lightheadedness Respiratory: Respiratory: Denies cough and Denies dyspnea Gastrointestinal: Gastrointestinal: Denies abdominal pain, Denies diarrhea, Denies nausea and Denies vomiting Comments: hernia Genitourinary: Genitourinary: Denies dysuria Musculoskeletal: Musculoskeletal: Reports arthralgias (left foot ) and Reports joint swelling (left foot ) Integumentary/Breasts: Skin/Breast: Reports wounds (ulcer left plantar foot ) Neurologic: Reports abnormal gait (antalgic ), Denies confusion and Denies numbness Psychiatric: Psychiatric: Reports anxiety (wants to go home ) Exam Const: General: comfortable and no acute distress HENMT: Mouth: Yes moist mucous membranes Eyes: General: appearance normal, both eyes and all related structures Neck: Neck: supple and no JVD Resp: Effort & Inspection: normal respiratory effort Auscultation: no wheezes Cardio: Rate: regular rate Rhythm: regular rhythm GI: Inspection: distended GI Palp: Yes Hernia present Other: Obese Skin: Other: Ulcer on the plantar aspect of the left foot 3.0x3.0x0.1cm. Unable to probe beneath tissue surface. No probing to bone. Mild fluctuance of the surrounding tissue. No redness/warmth. No malodor. Mild tenderness on the lateral aspect of the plantar foot. No erythema on dorsal aspect of the foot. No drainage. Dry, flaky skin on b/l LE. Swelling and skin changes bilateral lower extremity consistent with chronic venous stasis. Neuro: Cognition (Neuro): normal cognition Other: decreased sensation b/l feet . Extrem: Right upper extremity: normal to inspection, full ROM and normal capillary refill Left upper extremity: normal to inspection, full ROM and normal capillary refill Right lower extremity: normal to inspection, lower leg and foot (pes planus, overgrown toenails, no ulceration ) Left lower extremity: foot Other: Palpable pedal pulses bilaterally. Decreased sensation bilateral feet to ankles. Dry/Flaky skin bilate
--- NOTE | 2020-03-23 15:15 | PM.IMPN ---
Progress Note: A&P Assessment and Plan (1) Foot ulcer, left: Qualifiers: Non-pressure ulcer stage: unspecified non-pressure ulcer stage Qualified Code(s): L97.529 - Non-pressure chronic ulcer of other part of left foot with unspecified severity Code(s): L97.529 - Non-pressure chronic ulcer of other part of left foot with unspecified severity Status: Acute Assessment and Plan: General surgery was consulted from the ER who ordered a MRI of his foot with reading of ulceration at the plantar aspect of the left midfoot. No abscess or T1 marrow signal changes to suggest osteomyelitis. Charcot foot. General Surgery subsequently consulted Dr. Tristan (orthopedic surgeon) for further evaluation on the patient's findings and Charcot foot; appreciate recommendations. Initial blood culture results returned with 1 anaerobic bottle is growing Gram-positive bacilli, with other bottle shows no growth at this time. Repeat blood cultures have been obtained today. Will continue broad-spectrum antibiotic therapy with Levaquin and vancomycin Continue monitoring the patient's symptoms, pain control, and PT/OT Patient understands and is agreeable to awaiting repeat blood cultures to return, preliminary. If negative, will anticipate discharge if medically stable Orthopedic Surgery has cleared patient for discharge from their standpoint. Recommendations appreciated Monitor closely; await blood cultures; continue IV antibiotics in interim (2) Charcot's joint of foot: Qualifiers: Laterality: left Qualified Code(s): M14.672 - Charcot's joint, left ankle and foot Code(s): M14.679 - Charcot's joint, unspecified ankle and foot Status: Chronic Assessment and Plan: See above (3) Peroneal DVT (deep venous thrombosis): Qualifiers: Chronicity: acute Laterality: left Qualified Code(s): I82.452 - Acute embolism and thrombosis of left peroneal vein Code(s): I82.459 - Acute embolism and thrombosis of unspecified peroneal vein Status: Acute Assessment and Plan: Acute PE and DVT most likely from increased sedentary lifestyle, and sleeping in a chair with his legs on the ground. CTA chest shows pulmonary emboli in the right upper and lower lobes. It also shows some small pleural effusions. Continue therapeutic Lovenox b.i.d. for treatment of his PE and DVT. CC working on pricing for Eliquis; likely initiate treatment if pricing is reasonable. Anticipate initiating tomorrow (4) Pulmonary embolism: Code(s): I26.99 - Other pulmonary embolism without acute cor pulmonale Status: Acute Assessment and Plan: Acute PE. Please see above. Echo shows mild right ventricular enlargement Plan is to continue anticoagulation with therapeutic Lovenox BID for now and initiate Eliquis if pricing is reasonable CC working on Eliquis pricing (5) Diastolic dysfunction: Code(s): I51.89 - Other ill-defined heart diseases Status: Acute Assessment and Plan: Chronic. Echo shows normal LVEF. Grade I diastolic dysfunction noted Will continue his home medications for CHF. Continue monitoring patient's symptoms and adjust diuretics if necessary. (6) Obstructive sleep apnea: Code(s): G47.33 - Obstructive sleep apnea (adult) (pediatric) Status: Acute Assessment and Plan: Discussions with prior providers have occured on the importance of BiPAP therapy; He is reluctant to comply with BiPAP therapy. He reports that his cutting and creasing press operator has tried to encourage him to uses BiPAP therapy multiple times in the past in the patient is still reluctant to comply with BiPAP use. Will encourage this again at discharge.
--- NOTE | 2020-03-23 15:59 | PC.NURSE ---
Dr. Philip clinic contacted regarding order for Diabetic Long Boot for Charcot foot. Per clinic, pt will need to keep current CAM short boot for safety. After pt discharges, he will need to see his PCP who will put in an order for a Nikolski Boot. Tamera schwarz will then schedule a time to cast the pt for the craig boot.
[2020-03-23] MEDS: POTASSIUM CHLORIDE 20 MEQ TABLET PO (17:45)
[2020-03-23 20:00] VITALS: PULSE 81; RESP 18; O2SAT 98
[2020-03-23 20:18] VITALS: BP 123/68; PULSE 98; RESP 18; TEMP 37.1; O2SAT 95
[2020-03-24 05:08] VITALS: BP 133/71; PULSE 89; RESP 20; TEMP 36.6; O2SAT 95
[2020-03-24 06:14] LABS: Hematocrit 32.3 % (42.0-52.0); Hemoglobin 10.7 g/dL (14.0-18.0); Mean Corpuscular HGB Conc 33.1 g/dl (32-36); Mean Corpuscular Hemoglobin 30.8 pg (26-34); Mean Corpuscular Volume 93.1 fl (80-100); Platelet Count Result 144 k/mm3 (150-375); Red Blood Count 3.47 M/mm3 (4.6-6.20); Red Cell Distribution Width 13.2 % (11.5-14.5); White Blood Count 6.9 K/mm3 (4.5-10.0)
[2020-03-24 06:39] LABS: Blood Urea Nitrogen 28 mg/dL (9-20); Calcium 8.3 mg/dL (8.4-10.2); Carbon Dioxide 30 mmol/L (22-30); Chloride 100 mmol/L (98-107); Estimated CRCL calculation 39 ml/min; Estimated Glomerular Filt Rate 33; Glucose 118 mg/dL (75-110); Magnesium 1.9 mg/dL (1.6-2.3); Potassium 3.3 mmol/L (3.4-5.0); Sodium 134 mmol/L (137-145)
[2020-03-24] MEDS: AMLODIPINE BESYLATE 5 MG TABLET 10 MG PO (07:53)
[2020-03-24] MEDS: levETIRAcetam 500 MG TABLET 1000 MG PO ×2 (07:53→16:52)
[2020-03-24] MEDS: TAMSULOSIN HCL 0.4 MG CAPSULE PO (07:54)
[2020-03-24] MEDS: buPROPion HCL XL (24 HR) 150 MG TABCR PO (07:54)
[2020-03-24] MEDS: LOSARTAN POTASSIUM 50 MG TABLET PO (07:54)
[2020-03-24] MEDS: FUROSEMIDE 20 MG TABLET 60 MG PO (07:54)
[2020-03-24] MEDS: ASPIRIN 81 MG CHEWABLE TABLET PO (07:54)
[2020-03-24] MEDS: ENOXAPARIN 80 MG/0.8 ML SYRINGE 130 MG SUB-Q (07:55)
[2020-03-24] MEDS: EUCERIN CREAM 120 GM JAR 1 APPLIC TOPICAL (07:55)
--- NOTE | 2020-03-24 09:27 | PM.IMPN ---
Progress Note: A&P Assessment and Plan (1) Foot ulcer, left: Qualifiers: Non-pressure ulcer stage: unspecified non-pressure ulcer stage Qualified Code(s): L97.529 - Non-pressure chronic ulcer of other part of left foot with unspecified severity Code(s): L97.529 - Non-pressure chronic ulcer of other part of left foot with unspecified severity Status: Acute Assessment and Plan: General surgery was consulted from the ER who ordered a MRI of his foot with reading of ulceration at the plantar aspect of the left midfoot. No abscess or T1 marrow signal changes to suggest osteomyelitis. Charcot foot. General Surgery subsequently consulted Dr. Tristan (orthopedic surgeon) for further evaluation on the patient's findings and Charcot foot; appreciate recommendations. Initial blood culture results returned with 1 anaerobic bottle is growing Gram-positive bacilli, with other bottle shows no growth at this time; likely contaminate. Repeat blood cultures have been obtained yesterday Will stop broad-spectrum antibiotic therapy due to IVONE; Continue monitoring the patient's symptoms, pain control, and PT/OT Patient understands and is agreeable to awaiting repeat blood cultures to return, preliminary. If negative, will anticipate discharge if medically stable Orthopedic Surgery has cleared patient for discharge from their standpoint. Recommendations appreciated. Foot does not appear to be grossly infected so will likely not discharge on antibiotics of BC negative Monitor closely; await blood cultures (2) Charcot's joint of foot: Qualifiers: Laterality: left Qualified Code(s): M14.672 - Charcot's joint, left ankle and foot Code(s): M14.679 - Charcot's joint, unspecified ankle and foot Status: Chronic Assessment and Plan: See above (3) Peroneal DVT (deep venous thrombosis): Qualifiers: Chronicity: acute Laterality: left Qualified Code(s): I82.452 - Acute embolism and thrombosis of left peroneal vein Code(s): I82.459 - Acute embolism and thrombosis of unspecified peroneal vein Status: Acute Assessment and Plan: Acute PE and DVT most likely from increased sedentary lifestyle, and sleeping in a chair with his legs on the ground. CTA chest shows pulmonary emboli in the right upper and lower lobes. It also shows some small pleural effusions. Will switch to Eliquis 10 mg BID tonight for initial treatment of his PE and DVT. Will do Eliquis 10 mg BID for 1 week, then 5 mg BID thereafter F/u with PCP (4) Pulmonary embolism: Code(s): I26.99 - Other pulmonary embolism without acute cor pulmonale Status: Acute Assessment and Plan: Acute PE. Please see above. Echo shows mild right ventricular enlargement As above, begin Eliquis tonight (5) Diastolic dysfunction: Code(s): I51.89 - Other ill-defined heart diseases Status: Acute Assessment and Plan: Chronic. Echo shows normal LVEF. Grade I diastolic dysfunction noted Holding diuretics and losartan due to IVONE Likely resume once return of normal kidney function Continue monitoring patient's symptoms and adjust diuretics if necessary. (6) Obstructive sleep apnea: Code(s): G47.33 - Obstructive sleep apnea (adult) (pediatric) Status: Acute Assessment and Plan: Discussions with prior providers have occured on the importance of BiPAP therapy; He is reluctant to comply with BiPAP therapy. He reports that his carbonation equipment operator has tried to encourage him to uses BiPAP therapy multiple times in the past in the patient is still reluctant to comply with BiPAP use. Encouraged BiPAP use again today. Will encourage again at discharge.
[2020-03-24] MEDS: POTASSIUM CHLORIDE 20 MEQ TABLET 40 MEQ PO (09:35)
[2020-03-24] MEDS: SODIUM CHLORIDE 0.9% IV 1,000 ML 75 ML IV CONT (09:36)
[2020-03-24 14:00] VITALS: BP 119/72; PULSE 92; RESP 18; TEMP 36.8; O2SAT 9
[2020-03-24] MEDS: APIXABAN 5 MG TABLET 10 MG PO (16:52)
[2020-03-24 19:42] VITALS: BP 131/75; PULSE 90; RESP 18; TEMP 36.7; O2SAT 95
[2020-03-25 04:19] VITALS: BP 133/75; PULSE 101; RESP 18; TEMP 37.1; O2SAT 95
[2020-03-25 09:05] LABS: Hematocrit 32.7 % (42.0-52.0); Hemoglobin 10.8 g/dL (14.0-18.0); Mean Platelet Volume 11.6 fl (7.4-10.4); Platelet Count Result 158 k/mm3 (150-375); Red Blood Count 3.48 M/mm3 (4.6-6.20); Red Cell Distribution Width 13.2 % (11.5-14.5); White Blood Count 7.3 K/mm3 (4.5-10.0)
[2020-03-25 09:22] LABS: Blood Urea Nitrogen 37 mg/dL (9-20); Calcium 8.5 mg/dL (8.4-10.2); Carbon Dioxide 27 mmol/L (22-30); Chloride 101 mmol/L (98-107); Estimated CRCL calculation 38 ml/min; Estimated Glomerular Filt Rate 31; Glucose 183 mg/dL (75-110); Magnesium 2.2 mg/dL (1.6-2.3); Potassium 3.2 mmol/L (3.4-5.0); Sodium 136 mmol/L (137-145)
[2020-03-25] MEDS: AMLODIPINE BESYLATE 5 MG TABLET 10 MG PO (09:27)
[2020-03-25] MEDS: ASPIRIN 81 MG CHEWABLE TABLET PO (09:27)
[2020-03-25] MEDS: buPROPion HCL XL (24 HR) 150 MG TABCR PO (09:28)
[2020-03-25] MEDS: levETIRAcetam 500 MG TABLET 1000 MG PO ×2 (09:28→17:59)
[2020-03-25] MEDS: APIXABAN 5 MG TABLET 10 MG PO ×2 (09:28→17:59)
[2020-03-25] MEDS: TAMSULOSIN HCL 0.4 MG CAPSULE PO (09:29)
[2020-03-25] MEDS: EUCERIN CREAM 120 GM JAR 1 APPLIC TOPICAL (09:30)
[2020-03-25 10:29] LABS: Vancomycin Trough 10.3 ug/mL (10.0-20.0)
[2020-03-25] MEDS: POTASSIUM CHLORIDE 20 MEQ TABLET 40 MEQ PO (10:36)
[2020-03-25] MEDS: SODIUM CHLORIDE 0.9% IV 500 ML 999 ML IV CONT (10:38)
--- NOTE | 2020-03-25 10:52 | PM.IMPN ---
Progress Note: A&P Assessment and Plan (1) Foot ulcer, left: Qualifiers: Non-pressure ulcer stage: unspecified non-pressure ulcer stage Qualified Code(s): L97.529 - Non-pressure chronic ulcer of other part of left foot with unspecified severity Code(s): L97.529 - Non-pressure chronic ulcer of other part of left foot with unspecified severity Status: Acute Assessment and Plan: General surgery was consulted from the ER who ordered a MRI of his foot with reading of ulceration at the plantar aspect of the left midfoot. No abscess or T1 marrow signal changes to suggest osteomyelitis. Charcot foot. General Surgery subsequently consulted Dr. Tristan (orthopedic surgeon) for further evaluation on the patient's findings and Charcot foot; appreciate recommendations. Initial blood culture results returned with 1 anaerobic bottle is growing Gram-positive bacilli, with other bottle shows no growth at this time; likely contaminate. Repeat blood cultures are negative to date x2 D/c antibiotics yesterday given likely contaminate and IVONE Continue monitoring the patient's symptoms, pain control, and PT/OT Orthopedic Surgery has cleared patient for discharge from their standpoint. Recommendations appreciated. Foot does not appear to be grossly infected so will likely not discharge on antibiotics of BC negative Likely discharge once medically stable; potentially 1-2 days pending labs f/u with Ortho and PCP after discharge; no abx at discharge (2) Charcot's joint of foot: Qualifiers: Laterality: left Qualified Code(s): M14.672 - Charcot's joint, left ankle and foot Code(s): M14.679 - Charcot's joint, unspecified ankle and foot Status: Chronic Assessment and Plan: See above (3) Peroneal DVT (deep venous thrombosis): Qualifiers: Chronicity: acute Laterality: left Qualified Code(s): I82.452 - Acute embolism and thrombosis of left peroneal vein Code(s): I82.459 - Acute embolism and thrombosis of unspecified peroneal vein Status: Acute Assessment and Plan: Acute PE and DVT most likely from increased sedentary lifestyle, and sleeping in a chair with his legs on the ground. CTA chest shows pulmonary emboli in the right upper and lower lobes. It also shows some small pleural effusions. Continue Eliquis 10 mg BID x7 days (stop after morning dose on 03/31); switch to 5 mg BID evening of 03/31 F/u with PCP (4) Pulmonary embolism: Code(s): I26.99 - Other pulmonary embolism without acute cor pulmonale Status: Acute Assessment and Plan: Acute PE. Please see above. Echo shows mild right ventricular enlargement As above, continue Eliquis (5) Diastolic dysfunction: Code(s): I51.89 - Other ill-defined heart diseases Status: Acute Assessment and Plan: Chronic. Echo shows normal LVEF. Grade I diastolic dysfunction noted Holding diuretics and losartan due to IVONE Likely resume once return of normal kidney function, potentially after discharge and after f/u with PCP Continue monitoring patient's symptoms and adjust diuretics if necessary. (6) Obstructive sleep apnea: Code(s): G47.33 - Obstructive sleep apnea (adult) (pediatric) Status: Acute Assessment and Plan: Discussions with prior providers have occured on the importance of BiPAP therapy; He is reluctant to comply with BiPAP therapy. He reports that his supervisor roller shop has tried to encourage him to uses BiPAP therapy multiple times in the past in the patient is still reluctant to comply with BiPAP use. Encouraged BiPAP use again today. Will encourage again at discharge. [facility] [place]
[2020-03-25 14:00] VITALS: BP 119/67; PULSE 99; RESP 22; TEMP 36.2; O2SAT 97
[2020-03-25 14:16] LABS: Blood Urea Nitrogen 42 mg/dL (9-20); Calcium 8.4 mg/dL (8.4-10.2); Carbon Dioxide 25 mmol/L (22-30); Chloride 101 mmol/L (98-107); Estimated CRCL calculation 38 ml/min; Estimated Glomerular Filt Rate 31; Glucose 162 mg/dL (75-110); Potassium 3.9 mmol/L (3.4-5.0); Sodium 135 mmol/L (137-145)
--- NOTE | 2020-03-25 15:57 | PCRCNOTE ---
PT REPORTS HE DOES NOT WEAR A CPAP AT HOME
[2020-03-25 20:14] VITALS: BP 126/66; PULSE 84; RESP 20; TEMP 37.1; O2SAT 95
[2020-03-26 05:41] VITALS: BP 138/68; PULSE 86; RESP 18; TEMP 36.7; O2SAT 95
[2020-03-26 06:16] LABS: Blood Urea Nitrogen 43 mg/dL (9-20); Carbon Dioxide 27 mmol/L (22-30); Chloride 102 mmol/L (98-107); Estimated CRCL calculation 39 ml/min; Estimated Glomerular Filt Rate 33; Glucose 114 mg/dL (75-110)
[2020-03-26 07:05] LABS: Calcium 8.5 mg/dL (8.4-10.2); Magnesium 2.4 mg/dL (1.6-2.3); Potassium 3.6 mmol/L (3.4-5.0); Sodium 136 mmol/L (137-145)
[2020-03-26] MEDS: POTASSIUM CHLORIDE 20 MEQ TABLET 40 MEQ PO (08:55)
[2020-03-26] MEDS: ASPIRIN 81 MG CHEWABLE TABLET PO (08:55)
[2020-03-26] MEDS: AMLODIPINE BESYLATE 5 MG TABLET 10 MG PO (08:55)
[2020-03-26] MEDS: levETIRAcetam 500 MG TABLET 1000 MG PO (08:56)
[2020-03-26] MEDS: EUCERIN CREAM 120 GM JAR 1 APPLIC TOPICAL (08:56)
[2020-03-26] MEDS: APIXABAN 5 MG TABLET 10 MG PO (08:56)
[2020-03-26] MEDS: buPROPion HCL XL (24 HR) 150 MG TABCR PO (08:56)
[2020-03-26] MEDS: TAMSULOSIN HCL 0.4 MG CAPSULE PO (08:56)
--- NOTE | 2020-03-26 09:13 | PM.DS ---
DS: Admitting Diagnosis Admitting Diagnosis Admitting Diagnosis: Non-pressure chronic ulcer of other part of left foot with unspecified severity DS: Discharge Diagnosis Discharge Diagnosis (1) Foot ulcer, left: Qualifiers: Non-pressure ulcer stage: unspecified non-pressure ulcer stage Qualified Code(s): L97.529 - Non-pressure chronic ulcer of other part of left foot with unspecified severity Code(s): L97.529 - Non-pressure chronic ulcer of other part of left foot with unspecified severity Status: Acute Assessment and Plan: General surgery was consulted from the ER who ordered a MRI of his foot with reading of ulceration at the plantar aspect of the left midfoot. No abscess or T1 marrow signal changes to suggest osteomyelitis. Charcot foot. General Surgery subsequently consulted Dr. Tristan (orthopedic surgeon) for further evaluation on the patient's findings and Charcot foot; appreciate recommendations. Initial blood culture results returned with 1 anaerobic bottle is growing Gram-positive bacilli, with other bottle shows no growth at this time; likely contaminate. Repeat blood cultures are negative to date x2 D/c antibiotics earlier in stay given likely contaminate on BCx and IVONE Continue monitoring the patient's symptoms, pain control, and PT/OT Orthopedic Surgery has cleared patient for discharge from their standpoint. Recommendations appreciated. Foot does not appear to be grossly infected so will likely not discharge on antibiotics of BC negative Discharge today with prompt follow up with PCP f/u with Ortho; no abx at discharge (2) Charcot's joint of foot: Qualifiers: Laterality: left Qualified Code(s): M14.672 - Charcot's joint, left ankle and foot Code(s): M14.679 - Charcot's joint, unspecified ankle and foot Status: Chronic Assessment and Plan: See above (3) Peroneal DVT (deep venous thrombosis): Qualifiers: Chronicity: acute Laterality: left Qualified Code(s): I82.452 - Acute embolism and thrombosis of left peroneal vein Code(s): I82.459 - Acute embolism and thrombosis of unspecified peroneal vein Status: Acute Assessment and Plan: Acute PE and DVT most likely from increased sedentary lifestyle, and sleeping in a chair with his legs on the ground. CTA chest shows pulmonary emboli in the right upper and lower lobes. It also shows some small pleural effusions. Continue Eliquis 10 mg BID x7 days (stop after morning dose on 03/31); switch to 5 mg BID evening of 03/31 F/u with PCP (4) Pulmonary embolism: Code(s): I26.99 - Other pulmonary embolism without acute cor pulmonale Status: Acute Assessment and Plan: Acute PE. Please see above. Echo shows mild right ventricular enlargement As above, continue Eliquis (5) Diastolic dysfunction: Code(s): I51.89 - Other ill-defined heart diseases Status: Acute Assessment and Plan: Chronic. Echo shows normal LVEF. Grade I diastolic dysfunction noted. Patient states his breathing is unchanged since admission; no complaints Holding diuretics and losartan due to IVONE; will likely resume next week once okay with PCP and after BMP Discharge today; follow up with PCP in 1 week if possible (6) Obstructive sleep apnea: Code(s): G47.33 - Obstructive sleep apnea (adult) (pediatric) Status: Acute Assessment and Plan: Discussions with prior providers have occured on the importance of BiPAP therapy; He is reluctant to comply with BiPAP therapy. He reports that his food demonstrator has tried to encourage him to uses BiPAP therapy multiple times in the past in the patient is still reluctant to comply with BiPAP
== END 2020-03-26 11:15 | disposition home health service (06) | DRG 592 ==
LOC: ANHED 19:52 → ANH3MED 20:37
PROVIDERS: Physician Assistant; Admitting Provider Internal Medicine; Emergency Provider Emergency Medicine; Visit Provider Family Medicine
DX: L97.522 Non-pressure chronic ulcer of other part of left foot with fat layer exposed (principal); I26.99 Other pulmonary embolism without acute cor pulmonale; I82.452 Acute embolism and thrombosis of left peroneal vein; M14.672 Charcot's joint, left ankle and foot; M17.9 Osteoarthritis of knee, unspecified; G47.33 Obstructive sleep apnea (adult) (pediatric); I51.89 Other ill-defined heart diseases; E87.6 Hypokalemia; G40.909 Epilepsy, unspecified, not intractable, without status epilepticus
CPT/HCPCS: 36415; 71275; 73630; 73700; 73720; 80048; 80202; 83735; 85025; 85027; 85055; 85652; 86140; 87040; 87076; 93005; 93971; 96365; 96366; 96367; 96372; 96375; 96376; 97110; 97116; 97161; 97165; 99285; A9270; A9577; C8929; G0378; J1650; J1956; J3370; J7030; Q9957; Q9967

== ENCOUNTER 2020-04-23 11:19 | Outpatient (CLI) | payer MEDICARE, SELFPAY ==
--- NOTE | ~2020-04-23 | XR_ITS ---
EXAMINATION: XR foot LT min 3V DATE: 04/23/2020 11:51 INDICATION: Left foot pain TECHNIQUE: Dorsoplantar, two oblique and lateral views of the left foot were obtained. COMPARISON: Left foot radiographs dated 03/19/2020 FINDINGS: Pes planus. Severe polyarticular osteoarthritis with increased sclerosis at the talonavicular joint a nd multiple joints in the midfoot suggestive of Charcot foot. Left first metatarsophalangeal arthropl asty. Mild osteoarthritis at many of the remaining joints at the left ankle, hindfoot and forefoot. O ld healed fracture deformity of the left fifth metatarsal diaphysis. No acute fractures identified. L arge plantar calcaneal spur. Diffuse soft tissue swelling about the left foot, ankle and lower leg. N o evident ankle joint effusion. IMPRESSION: 1. 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 2. Left first metatarsophalangeal arthroplasty. Reviewed, dictated and finalized at location A. IMPRESSION: 1. No significant interval change in likely Charcot foot with severe polyarticu lar osteoarthritis at the left midfoot. 2. Left first metatarsophalangeal arthroplasty.
== END 2020-04-23 11:20 | disposition home or self-care (01) ==
DX: M79.672 Pain in left foot (principal); M19.072 Primary osteoarthritis, left ankle and foot
CPT/HCPCS: 73630

== ENCOUNTER 2020-07-30 14:52 | Emergency (ER) | payer MEDICARE, SELFPAY ==
--- NOTE | ~2020-07-30 | XR_ITS ---
EXAMINATION: XR foot LT min 3V DATE: 07/30/2020 17:49 INDICATION: Foot pain, osteomyelitis TECHNIQUE: Dorsoplantar, lateral, and 2 oblique views of the left foot were obtained. COMPARISON: 04/23/2020 FINDINGS: There is a plantar ulceration of the foot located near the base of the fifth metatarsal. Th ere is osteopenia at the base of the fifth metatarsal with an oblique intra-articular fracture coursi ng through the area of osteopenia. Severe osteoarthritis is seen in the midfoot which demonstrates in terval worsening. There is osteopenia at the articulations of the lateral cuneiform and the bases of the fourth and fifth metatarsals. An old healed fracture of the fifth metatarsal shaft is noted. Hernández ges of left first metatarsophalangeal arthroplasty are noted. There is diffuse soft tissue swelling o f the foot and ankle. IMPRESSION: 1. Plantar ulceration of the foot near the base of the fifth metatarsal with likely osteomyelitis in associated fracture at the base of the fifth metatarsal. Osteopenia at the articulations of the later al cuneiform and the base of the fourth and fifth metatarsals is also suggestive of osteomyelitis. 2. 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 Reviewed, dictated and finalized at location A. IMPRESSION: 1. Plantar ulceration of the foot near the base of the fifth metatarsal with li radha osteomyelitis in associated fracture at the base of the fifth metatarsal. Osteopenia at the articulations of the lateral cuneiform and the base of the fo urth and fifth metatarsals is also suggestive of osteomyelitis. 2. 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
[2020-07-30 15:01] VITALS: BP 154/86; PULSE 72; RESP 20; TEMP 36.7; O2SAT 97
[2020-07-30 17:30] LABS: Basophils Percent Auto 0.5 % (0.2-1.2); Eosinophils Absolute Auto 0.1 K/mm3 (0-0.3); Eosinophils Percent Auto 1.2 % (0-4.4); Hematocrit 30.2 % (42.0-52.0); Hemoglobin 9.8 g/dL (14.0-18.0); Immature Granulocyte Absolute 0.06 K/mm3 (0.00-0.031); Immature Granulocyte Percent A 0.8 % (0-0.5); Lymphocytes Absolute Auto 1.09 K/mm3 (0.9-3.2); Lymphocytes Percent Auto 14.8 % (18.3-44.2); Mean Corpuscular HGB Conc 32.5 g/dl (32-36); Mean Corpuscular Volume 92.4 fl (80-100); Mean Platelet Volume 10.3 fl (7.4-10.4); Monocytes Absolute Auto 0.8 K/mm3 (0.1-0.6); Monocytes Percent Auto 10.7 % (2.6-8.5); Neutrophils Absolute Auto 5.3 K/mm3 (1.3-6.7); Platelet Count Result 336 k/mm3 (150-375); Red Blood Count 3.27 M/mm3 (4.6-6.20); Red Cell Distribution Width 13.2 % (11.5-14.5); White Blood Count 7.4 K/mm3 (4.5-10.0)
[2020-07-30 17:43] LABS: Alanine Aminotransferase 16 U/L (4-50); Albumin Level 3.7 g/dL (3.5-5.1); Alkaline Phosphatase 77 U/L (38-126); Anion Gap 7 mmol/L (8-16); Aspartate Amino Transferase 26 U/L (17-59); Bilirubin,Total 0.6 mg/dL (0.2-1.3); Blood Urea Nitrogen 20 mg/dL (9-20); Calcium 9.2 mg/dL (8.4-10.2); Carbon Dioxide 30 mmol/L (22-30); Chloride 102 mmol/L (98-107); Estimated CRCL calculation 67 ml/min; Estimated Glomerular Filt Rate > 60; Glucose 106 mg/dL (75-110); Potassium 3.7 mmol/L (3.4-5.0); Sodium 139 mmol/L (137-145)
[2020-07-30] MEDS: ONDANSETRON INJ 4 MG/2 ML VIAL IV PUSH (18:01)
[2020-07-30] MEDS: MORPHINE SULFATE (*CRX) 4 MG/ML INJ IV PUSH (18:01)
[2020-07-30 18:07] VITALS: BP 167/79; PULSE 99; RESP 18; O2SAT 96
--- NOTE | 2020-07-30 18:08 | PCCCNOTE ---
Spoke with pt regarding concern for care of . Assisted pt in getting family friend to help with .
--- NOTE | 2020-07-30 18:13 | ED.EXTPRO ---
HPI - Extremity Problem General Chief complaint: Extremity Problem,Nontraumatic Stated complaint: post op L foot complications Time Seen by Provider: 07/30/20 16:36 Source: patient Mode of arrival: ambulatory Limitations: no limitations History of Present Illness HPI Narrative: 79 years old white male presents with pain and discharge at the bottom of left foot that few days ago. Patient had surgery at the bottom of his left foot on July 09 at [facility]. Was seen by his orthopedic 1 week later, 3 days ago the stitches was removed, and the last 48 hours the wound opened and start leaking foul odorous discharge. Patient denies any fever, chills, nausea, vomiting, diarrhea, chest pain, shortness of breath or headache. Patient on Eliquis for deep vein thrombosis and pulmonary embolism. Related Data Home Medications Medication Instructions Recorded Confirmed aspirin [Aspirin Childrens] 81 mg PO DAILY 09/11/19 03/19/20 polyethylene glycol 3350 [Miralax] 17 g PO DAILY 09/11/19 03/19/20 bupropion HCl 150 mg PO QAM 03/19/20 03/19/20 citalopram 40 mg PO QAM 03/19/20 03/19/20 furosemide 60 mg PO DAILY 03/19/20 03/19/20 levetiracetam 1,000 mg PO BID 03/19/20 03/19/20 losartan 50 mg PO BID 03/19/20 03/19/20 spironolactone 12.5 mg PO QTUTHSA 03/19/20 03/19/20 Allergies Allergy/AdvReac Type Severity Reaction Status Date / Time Penicillins Allergy Unknown Other Verified 07/30/20 16:48 tomato Allergy Unknown Other Verified 07/30/20 16:48 Review of Systems Review of Systems: Narrative: CONSTITUTIONAL: Denies fever, chills, or sweats. EYES: Denies visual changes, redness, or discharge. ENT: Denies rhinorrhea, congestion, sore throat, or otalgia. CARDIOVASCULAR: Denies chest pain, palpitations, or edema. RESPIRATORY: Denies cough or dyspnea. GASTROINTESTINAL: Denies abdominal pain, nausea, vomiting, or diarrhea. GENITOURINARY: Denies dysuria or hematuria. SKIN: Denies rash or itching. MUSCULOSKELETAL: Denies back pain, joint pain, or myalgia. NEUROLOGIC: Denies headache, numbness, or weakness. PSYCHIATRIC: Denies anxiety or depression. [facility] Past Medical History Medical History (Updated 07/30/20 @ 18:20 by Vadim Amor MD) Anxiety Depression Diastolic dysfunction Noted on echocardiogram from 2015 Epistaxis Erectile dysfunction Esophagitis determined by biopsy Noted from EGD August [address] Gupta Gastritis and duodenitis Noted on EGD August [address] Costa Hyperlipidemia Hypertension Kidney stones Mitral valve insufficiency Status post repair [facility] August 2019 Moderate pulmonary arterial systolic hypertension Noted on echocardiogram from 2015 with RVSP of 50 Neuropathic ulcer of left foot with fat layer exposed Obstructive sleep apnea With polysomnogram in 2009 recommending return to sleep lab for ASV titration as the patient was still having apneic events with settings of 18/14 on BiPAP Paroxysmal atrial fibrillation Following valve repair procedure. No longer on anticoagulation. Seizure disorder Multiple episodes of transient global amnesia thought to be possible partial seizure Tricuspid valve insufficiency, non-rheumatic Status post repair [facility] August 2019 Surgical History Surgical History History of appendectomy History of inguinal hernia repair, bilateral History of mitral valve repair History of tricuspid valve repair August 2019 at [facility] with postoperative course complicated by by acute renal failure, postop ileus, metabolic acidosis, and respiratory failure Social History Social History Social History: Primary care physician: Dr. Reagan Wu in [place] Code status: Full code His daughter Sri mclain is his durable power of real estate attorney. Smoking status: Never smoker Second hand tobacco smoke exposure: No Alc
[2020-07-30 19:08] VITALS: BP 179/94; PULSE 76; RESP 18; O2SAT 96
--- NOTE | 2020-07-30 19:58 | PC.NURSE ---
Spoke with caregiver around 1945 she had questions regarding Pt status and his . Pt stated it was ok to give her information as well as to have her contact his daughter Alivia to update her on his status due to him not having a cellphone.
--- NOTE | 2020-07-30 20:02 | PC.NURSE ---
This nurse placed a call to patients' neighbor in regards to her picking up his vehicle from the ER parking lot as well as taking his back home,all requested by Mr. Rodriguez.
[2020-07-30 20:30] VITALS: BP 172/95; PULSE 78; RESP 18; O2SAT 99
[2020-07-30 20:51] VITALS: BP 172/95; PULSE 78; RESP 19; TEMP 36.3; O2SAT 99
== END 2020-07-30 20:45 | disposition short-term general hospital (02) ==
PROVIDERS: Emergency Provider Emergency Medicine; PCP Internal Medicine
DX: T81.41XA Infection following a procedure, superficial incisional surgical site, initial encounter (principal); M86.8X7 Other osteomyelitis, ankle and foot; F41.9 Anxiety disorder, unspecified; F32.9 Major depressive disorder, single episode, unspecified; E78.5 Hyperlipidemia, unspecified; I10 Essential (primary) hypertension; G47.33 Obstructive sleep apnea (adult) (pediatric); I48.0 Paroxysmal atrial fibrillation; Z87.442 Personal history of urinary calculi; G40.909 Epilepsy, unspecified, not intractable, without status epilepticus; Z79.82 Long term (current) use of aspirin
CPT/HCPCS: 36415; 73630; 80053; 85025; 87040; 96365; 96366; 96375; 99285; J2270; J2405; J3370

== ENCOUNTER 2020-08-10 12:24 | Emergency (ER) | payer MEDICARE, SELFPAY ==
[2020-08-10] VITALS (19 sets, daily range): BP systolic 145–160; BP diastolic 82–99; PULSE 64–69; RESP 16–17; TEMP 36.6; O2SAT 90–99
--- NOTE | 2020-08-10 12:36 | ED.GENADULT ---
HPI - General Adult General Chief complaint: Epistaxis Stated complaint: NOSE BLEED Time Seen by Provider: 08/10/20 12:32 Source: patient History of Present Illness HPI narrative: Patient is a 79 y/o male complaining moderate bleeding from right side starting 2 hours ago. He states that he was blowing his nose when it occurred. He denies any pain. He is on Eliquis. He denies any weakness, dizziness. Related Data Home Medications Medication Instructions Recorded Confirmed aspirin [Aspirin Childrens] 81 mg PO DAILY 09/11/19 03/19/20 polyethylene glycol 3350 [Miralax] 17 g PO DAILY 09/11/19 03/19/20 bupropion HCl 150 mg PO QAM 03/19/20 03/19/20 citalopram 40 mg PO QAM 03/19/20 03/19/20 furosemide 60 mg PO DAILY 03/19/20 03/19/20 levetiracetam 1,000 mg PO BID 03/19/20 03/19/20 losartan 50 mg PO BID 03/19/20 03/19/20 spironolactone 12.5 mg PO QTUTHSA 03/19/20 03/19/20 Allergies Allergy/AdvReac Type Severity Reaction Status Date / Time Penicillins Allergy Unknown Other Verified 08/10/20 12:25 tomato Allergy Unknown Other Verified 08/10/20 12:25 Review of Systems Constitutional: Constitutional: Denies chills, Denies fever(s), Denies headache(s) and Denies weakness Eyes: Eyes: Denies blurry vision ENT: Denies headache(s) and Denies neck pain Cardiovascular: Cardiovascular: Denies chest pain and Denies dyspnea Respiratory: Respiratory: Denies cough and Denies dyspnea Gastrointestinal: Gastrointestinal: Denies abdominal pain, Denies diarrhea, Denies nausea and Denies vomiting Genitourinary: Genitourinary: Denies hematuria and Denies dysuria Musculoskeletal: Musculoskeletal: Denies back pain and Denies neck pain Neurologic: Denies headache(s) and Denies weakness PMF Past Medical History Medical History Anxiety Depression Diastolic dysfunction Noted on echocardiogram from 2016 Epistaxis Erectile dysfunction Esophagitis determined by biopsy Noted from EGD August [address] Gupta Gastritis and duodenitis Noted on EGD August [address] Costa Hyperlipidemia Hypertension Kidney stones Mitral valve insufficiency Status post repair [facility] August 2019 Moderate pulmonary arterial systolic hypertension Noted on echocardiogram from 2015 with RVSP of 50 Neuropathic ulcer of left foot with fat layer exposed Obstructive sleep apnea With polysomnogram in 2009 recommending return to sleep lab for ASV titration as the patient was still having apneic events with settings of 18/14 on BiPAP Paroxysmal atrial fibrillation Following valve repair procedure. No longer on anticoagulation. Seizure disorder Multiple episodes of transient global amnesia thought to be possible partial seizure Tricuspid valve insufficiency, non-rheumatic Status post repair [facility] August 2019 Surgical History Surgical History History of appendectomy History of inguinal hernia repair, bilateral History of mitral valve repair History of tricuspid valve repair August 2019 at [facility] with postoperative course complicated by by acute renal failure, postop ileus, metabolic acidosis, and respiratory failure Family History Family History Father , In his 80s Cerebrovascular accident Heart disease Mother , In her 80s Carcinoma of colon Diabetes mellitus Heart disease Social History Social History Social History: Primary care physician: Dr. Reagan Wu in [place] Code status: Full code His daughter Sri mclain is his durable power of personal injury attorney. Smoking status: Never smoker Second hand tobacco smoke exposure: No Alcohol intake: current Drinks per week: 1 Substance use: never Additional living arrangements comments: Patient lives w
[2020-08-10 12:49] LABS: Basophils Absolute Auto 0.1 K/mm3 (0.0-0.1); Basophils Percent Auto 1.2 % (0.2-1.2); Eosinophils Absolute Auto 0.1 K/mm3 (0-0.3); Eosinophils Percent Auto 1.5 % (0-4.4); Hematocrit 31.9 % (42.0-52.0); Hemoglobin 10.3 g/dL (14.0-18.0); Immature Granulocyte Percent A 1.3 % (0-0.5); Lymphocytes Absolute Auto 1.06 K/mm3 (0.9-3.2); Lymphocytes Percent Auto 14.1 % (18.3-44.2); Mean Corpuscular HGB Conc 32.3 g/dl (32-36); Mean Corpuscular Hemoglobin 30.2 pg (26-34); Mean Corpuscular Volume 93.5 fl (80-100); Mean Platelet Volume 10.6 fl (7.4-10.4); Monocytes Absolute Auto 0.5 K/mm3 (0.1-0.6); Monocytes Percent Auto 7.1 % (2.6-8.5); Neutrophils Absolute Auto 5.6 K/mm3 (1.3-6.7); Neutrophils Percent Auto 74.8 % (45.5-73.1); Platelet Count Result 304 k/mm3 (150-375); Red Blood Count 3.41 M/mm3 (4.6-6.20); Red Cell Distribution Width 14.3 % (11.5-14.5); White Blood Count 7.5 K/mm3 (4.5-10.0)
[2020-08-10 12:58] LABS: INR 1.2; Prothrombin Time 15.1 Seconds (11.1-14.7)
[2020-08-10 12:59] LABS: Partial Thromboplastin Time 33.2 SECONDS (22.3-36.8)
[2020-08-10 13:00] LABS: Anion Gap 6 mmol/L (8-16); Blood Urea Nitrogen 26 mg/dL (9-20); Calcium 9.1 mg/dL (8.4-10.2); Carbon Dioxide 30 mmol/L (22-30); Chloride 103 mmol/L (98-107); Estimated CRCL calculation 61 ml/min; Estimated Glomerular Filt Rate 59; Glucose 116 mg/dL (75-110); Potassium 4.2 mmol/L (3.4-5.0); Sodium 139 mmol/L (137-145)
[2020-08-10] MEDS: OXYMETAZOLINE HCL 0.05% NAS 15 ML BTL (*BKC) 1 SPRAY (13:35)
--- NOTE | 2020-08-10 13:35 | PC.NURSE ---
CAREGIVER, ROBERTO, CONTACTED ED AT THIS TIME, TO CALL HER BACK AT [phone] WHEN PT TO BE D/C.
--- NOTE | 2020-08-10 14:58 | PC.NURSE ---
JESUSITA AT BEDSIDE TO PLACE RHINOROCKET
--- NOTE | 2020-08-10 15:24 | PC.NURSE ---
CALLED PT CAREGIVER TO COME PICK HIM UP AT THSI TIME.
== END 2020-08-10 15:29 | disposition home or self-care (01) ==
PROVIDERS: Emergency Provider Emergency Medicine; PCP Internal Medicine
DX: R04.0 Epistaxis (principal); F41.9 Anxiety disorder, unspecified; F32.9 Major depressive disorder, single episode, unspecified; E78.5 Hyperlipidemia, unspecified; Z87.442 Personal history of urinary calculi; I10 Essential (primary) hypertension; G47.30 Sleep apnea, unspecified; G40.909 Epilepsy, unspecified, not intractable, without status epilepticus
CPT/HCPCS: 30901; 36415; 80048; 85025; 85610; 85730; 99283; A9270

== ENCOUNTER 2020-12-14 08:51 | Outpatient (CLI) | payer MEDICARE, SELFPAY ==
--- NOTE | 2020-12-14 | ECHO_ITS ---
Patient Info Name: Ayo Rodriguez Age: 80 years : 1940 Gender: Male Ht: 71 in Wt: 235 lbs BSA: 2.34 m2 HR: 81 bpm BP: 124 / 81 mmHg Heart Rhythm: Indeterminant Technical Quality: Good Exam Date: 12/14/2020 9:27 AM Exam Location: [facility] Patient Status: Outpatient Admit Date: 12/14/2020 Staff Ordering Physician: Ofelia Reza MD Process Control Manager: Neftaly Diaz, LANDEN, RT Attending Provider: Ofelia Reza MD Referring Physician: Juaquin DEMPSEY; Exam Type: CA echo doppler color flow Study Info Indications I50.9 - Heart failure, unspecified I48.1 - Persistent atrial fibrillation I36.8 - Other nonrheumatic tricuspid valve disorders I34.8 - Other nonrheumatic mitral valve disorders Complete two-dimensional, color flow and Doppler transthoracic echocardiogram is performed. Strain analysis performed. Summary 1. Complete two-dimensional, color flow and Doppler transthoracic echocardiogram is performed. 2. The left ventricle is of normal size with mild concentric hypertrophy. The left ventricular systolic function is mildly reduced with an estimated ejection fraction of 50%. The global longitudinal strain is moderately reduced at-14%. There were flow no focal wall motion abnormalities. Grade 2 diastolic dysfunction is present. 3. Right ventricular chamber dimension is moderately enlarged with a moderate reduction of systolic function.. 4. Left atrial chamber dimension is moderately enlarged. 5. Right atrial chamber dimension is mildly enlarged. 6. There is thickening of the mitral valve annulus consistent with a mitral valve repair. No stenosis. The mean gradient is 3 mm Hg. There is mild eccentric mitral valve regurgitation. 7. There is mild pulmonic regurgitation. 8. There is mild aortic atherosclerosis. 9. Unable to estimate pulmonary pressure on this study. 10. Somewhat technically difficult study. Left Ventricle Left ventricular chamber dimension is normal. Left ventricular systolic function is mildly reduced, estimated at 45-50%. There is mildly increased left ventricular wall thickness. Left ventricular septal wall motion is normal. The left ventricular diastolic function is grade II diastolic dysfunction. Global longitudinal strain is moderately elevated at 14 %. Right Ventricle Right ventricular chamber dimension is moderately enlarged with a moderate reduction of systolic function.. Right ventricular systolic function is reduced. Left Atria Left atrial chamber dimension is moderately enlarged. Right Atria Right atrial chamber dimension is mildly enlarged. Aortic Valve The aortic valve is trileaflet. There is no aortic valve sclerosis. There is no aortic valve stenosis. There is no aortic valve regurgitation. Pulmonic Valve The pulmonic valve is normal. There is no pulmonic valve stenosis. There is mild pulmonic regurgitation. Mitral Valve The mitral valve has calcified annulus. There is no mitral valve stenosis. There is thickening of the mitral valve annulus consistent with a mitral valve repair. No stenosis. The mean gradient is 3 mm Hg. There is mild eccentric mitral valve regurgitation. Tricuspid Valve The tricuspid valve leaflets are normal. There is no significant tricuspid valve stenosis. There is trace tricuspid valve regurgitation. No pulmonary hypertension, estimated pulmonary arterial systolic pressure is Empty. Pericardium/Pleural The pericardium appears normal. There
== END 2020-12-14 08:52 | disposition home or self-care (01) ==
PROVIDERS: PCP Internal Medicine
DX: I48.91 Unspecified atrial fibrillation (principal); I34.0 Nonrheumatic mitral (valve) insufficiency; I37.1 Nonrheumatic pulmonary valve insufficiency; I70.0 Atherosclerosis of aorta
CPT/HCPCS: 93306

== ENCOUNTER 2021-03-22 12:41 | Outpatient (CLI) | payer MEDICARE, SELFPAY ==
--- NOTE | ~2021-03-22 | MR_ITS ---
EXAMINATION: MR foot LT wo/w con DATE: 03/22/2021 14:16 INDICATION: Left foot osteomyelitis. TECHNIQUE: Magnetic resonance imaging (MRI) of the left foot was performed without and with 20 mL Mul tiHance intravenous contrast. Sequences included sagittal STIR FSE and T1-weighted FSE and short-axis and long-axis T1-weighted FSE and T2-weighted FS FSE. Postcontrast sequences included short-axis and long-axis T1-weighted FS FSE. COMPARISON: Left foot MRI 03/20/2020, radiographs 07/30/2020 FINDINGS: There is an ulcer plantar to the midfoot with extension of cellulitis to the midfoot. There is a chronic tear of Lisfranc ligament with chronic rocker-bottom foot deformity and severe neuropat hic osteoarthropathy of Lisfranc joint, the naviculocuneiform joints, and Chopart joint. There is wid espread bone marrow edema involving the hindfoot and midfoot with worsening from 03/20/2020. There is a chronic fracture of base of fifth metatarsal with nonunion. There is an old healed fracture deformi ty of diaphysis of fifth metatarsal. There is chronic flattening of the heads of second-fourth metata rsals, consistent with osteonecrosis (Freiberg's infraction) stenosis. There is an implant at first m etatarsophalangeal joint. There is diffuse severe fatty atrophy of the musculature. IMPRESSION: 1. 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 Reviewed, dictated and finalized at location A. IMPRESSION: 1. 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
[2021-03-22 13:19] LABS: Estimated Glomerular Filt Rate 49
== END 2021-03-22 12:42 | disposition home or self-care (01) ==
PROVIDERS: PCP Internal Medicine
DX: M86.272 Subacute osteomyelitis, left ankle and foot (principal)
CPT/HCPCS: 73720; A9577

== ENCOUNTER 2022-01-12 08:58 | Inpatient (IN) | payer MEDICARE, SELFPAY ==
[2022-01-12] VITALS (18 sets, daily range): BP systolic 119–156; BP diastolic 64–85; PULSE 51–87; RESP 20–32; TEMP 35.7–36.8; O2SAT 93–100; BMI 39.7
--- NOTE | 2022-01-12 | ECHO_ITS ---
Patient Info Name: Ayo Rodriguez Age: 81 years : 1940 Gender: Male Ht: 72 in Wt: 298 lbs BSA: 2.68 m2 HR: 71 bpm BP: 127 / 85 mmHg Heart Rhythm: Atrial Fibrillation Technical Quality: Poor Exam Date: 01/12/2022 2:28 PM Exam Location: [facility] Patient Status: Outpatient Admit Date: 01/12/2022 Staff Ordering Physician: Maritza Cline APRN Warranty Coordinator: Aliza Snell RDCS Attending Provider: Justin Ayala MD Referring Physician: Barrington HUGHES Exam Type: CA echo dop color flow w con Study Info Indications I50.9 - Heart failure, unspecified Complete two-dimensional, color flow and Doppler transthoracic echocardiogram is performed with contrast to opacify the left ventricle and to improve the deliniation of the left ventricle endocardial borders. Contrast/Agitated Saline Contrast/Ag. Saline: Definity Amount: 4.00 ml Administered By: Aliza Snell RDCS Existing IV Access: Yes IV Access Condition: patent with no signs of infiltration Reason for Poor Study: patient body habitus Summary 1. Technically difficult study with limited views. 2. Left ventricular chamber dimension is normal. 3. Left ventricular systolic function is normal, estimated at 65-70%. 4. There is mildly increased left ventricular wall thickness. 5. Right ventricular chamber dimension is moderately enlarged. 6. Right ventricular systolic function is moderately reduced. TAPSE 1.3. 7. Flattening of the septum in systole consistent with right ventricular pressure overload. 8. Left ventricular septal wall motion is abnormal with septal motion related to bundle branch block. 9. Left atrial chamber dimension is moderately enlarged. 10. Right atrial chamber dimension is severely enlarged. 11. There is mild tricuspid valve regurgitation. 12. Moderate pulmonary hypertension, estimated pulmonary arterial systolic pressure is 59 mmHg. Left Ventricle Left ventricular chamber dimension is normal. Left ventricular systolic function is normal, estimated at 65-70%. There is mildly increased left ventricular wall thickness. Left ventricular septal wall motion is abnormal with septal motion related to bundle branch block. The left ventricular diastolic function is indeterminate. Technically difficult study with limited views. Right Ventricle Right ventricular chamber dimension is moderately enlarged. Right ventricular systolic function is moderately reduced. TAPSE 1.3. Flattening of the septum in systole consistent with right ventricular pressure overload. Left Atria Left atrial chamber dimension is moderately enlarged. Right Atria Right atrial chamber dimension is severely enlarged. Aortic Valve The aortic valve is probable trileaflet. There is mild aortic valve sclerosis. There is no aortic valve stenosis. Pulmonic Valve The pulmonic valve is normal. There is trace pulmonic regurgitation. Mitral Valve The mitral valve has thickened leaflets. There is mild mitral valve regurgitation. The mitral valve annulus is severely calcified. Tricuspid Valve The tricuspid valve leaflets are normal. There is mild tricuspid valve regurgitation. Moderate pulmonary hypertension, estimated pulmonary arterial systolic pressure is 59 mmHg. Pericardium/Pleural The pericardium appears normal. There is no pericardial effusion. Inferior Vena Cava Dilated inferior vena cava with >50% collapse upon inspiration co
--- NOTE | ~2022-01-12 | CT_ITS ---
EXAMINATION: CTA chest PE protocol DATE: 01/12/2022 12:19 INDICATION: Pleuritic chest pain and hypoxia TECHNIQUE: Computed tomography angiography (CTA) of the chest was performed with 100 mL Omnipaque-350 intravenous contrast timed to evaluate the pulmonary arteries. Coronal maximum intensity projection 3D-reconstructions were created by the technologist. The dose-length product (DLP) was 866.04 mGy-cm. Automated exposure control and iterative reconstruction technique were employed. COMPARISON: 03/20/2020 FINDINGS: The pulmonary arteries are well-opacified. No pulmonary embolism is identified. A questiona ble filling defect of a right upper lobe pulmonary artery has a chronic appearance, possibly reflecti ng prior embolus. There are small pleural effusions, right greater than left. The lungs are free of acute opacities. There are areas of air-trapping the lungs which may reflect sm all vessel disease or small airways disease. There is mild dependent atelectasis. No pneumothorax is identified. No pathologically enlarged thoracic lymph nodes are identified. The heart size is normal. There is a 1.8 cm nodule of the left thyroid lobe. Changes of mitral valve repair are noted. There a re bridging osteophytes at multiple levels in the spine, consistent with diffuse idiopathic skeletal hyperostosis (DISH). Healed right-sided rib fractures are noted. IMPRESSION: 1. No pulmonary embolus. 2. Small pleural effusions, right greater than left. Reviewed, dictated and finalized at location B. CH COORDINATOR
--- NOTE | ~2022-01-12 | XR_ITS ---
EXAMINATION: XR chest 1V portable DATE: 01/16/2022 05:24 INDICATION: Congestive heart failure TECHNIQUE: frontal view of the chest was obtained. COMPARISON: Chest radiograph and CT dated 01/12/2022 FINDINGS: Cardiomegaly with persistent pulmonary vascular congestion but without javid pulmonary edema. Unchang ed mild elevation of left hemidiaphragm. No pleural effusion or pneumothorax. Median innominate with mitral and tricuspid valve repairs. IMPRESSION: 1. Cardiomegaly with pulmonary vascular congestion. Reviewed, dictated and finalized at location A.
--- NOTE | ~2022-01-12 | XR_ITS ---
EXAMINATION: XR chest 1V portable DATE: 01/12/2022 09:31 INDICATION: Shortness of breath. TECHNIQUE: A single frontal view of the chest was obtained. COMPARISON: Chest single view 07/10/2017, chest CT 03/20/2020 FINDINGS: Again seen is mild elevation of left hemidiaphragm. There is an interstitial pattern in the lungs, consistent with mild pulmonary edema. No pleural effusion or pneumothorax. The heart size is normal. There are changes of mitral and tricuspid annuloplasties. There is an old healed right rib fr acture. IMPRESSION: 1. Mild pulmonary edema. Reviewed, dictated and finalized at location A. LOGIC DEVELOPER IMPRESSION: 1. Mild pulmonary edema.
--- NOTE | 2022-01-12 09:05 | ECG_ITS ---
Measurements Intervals Marceline Rate: 85 P: HI: 0 QRS: -44 QRSD: 112 T: 91 QT: 404 QTc: 482 Interpretive Statements ATRIAL FIBRILLATION WITH ABERRANT CONDUCTION OR VENTRICULAR PREMATURE COMPLEXES MARKED LEFT AXIS DEVIATION [QRS AXIS < -30] NONSPECIFIC INTRAVENTRICULAR CONDUCTION DELAY [110+ ms QRS DURATION] NONSPECIFIC ST & T-WAVE ABNORMALITY ABNORMAL ECG COMPARED TO ECG 03/19/2020 17:32:28 ATRIAL FIBRILLATION NOW PRESENT ABERRANT CONDUCTION OF SUPRAVENTRICULAR BEAT(S) NOW PRESENT NONSPECIFIC ST AND T-WAVE ABNORMALITY NOW PRESENT Electronically Signed On 01-12-2022 14:10:36 CARAMEL CANDY MAKER HELPER by Bernard Ceron M.D.
--- NOTE | 2022-01-12 09:17 | ED.ARRPALP ---
HPI - Arrhythmia/Palpitations General Chief Complaint: Arrhythmia/Palpitations Stated Complaint: SOB Source: patient and EMS Mode of arrival: EMS Limitations: no limitations History of Present Illness HPI narrative: Patient is a 81-year-old male, with history of CHF, AFIB on Eliquis, HTN, and HLD, who presents to the ED with complaints of increased shortness of breath on exertion that began yesterday. Patient reports he is typically able to walk all around his house with his walker without feeling short of breath. Yesterday and today, he began to feel short of breath with even walking across a room. He was unable to catch his breath this morning, EMS was called. Oxygen saturation upon arrival is 96% on 2 L. Patient does not use oxygen at home. He also reports having midsternal chest pain, worse with exertion. He took nitroglycerin at home for this prior to arrival, which improved the pain. He describes his chest pain as a tightness currently in the ED bed. Patient was given ASA 324mg and NTG by EMS. Patient denies any fever, chills, cough, hemoptysis, congestion, rhinorrhea, abdominal pain, nausea, vomiting. Patient has chronic bilateral lower extremity edema. He had been taking Lasix 60 mg for this, but was supposed to switch to chlorthalidone 12.5 mg today. He did not start this today due to coming to the ED. Patient's left foot currently in a walking boot, which he reports he has been in for the past 18 weeks. He had surgery to remove a cyst on his left foot in 2019 and subsequently had complications. Related Data Home Medications Medication Instructions Recorded Confirmed citalopram 40 mg PO QAM 03/19/20 01/12/22 levetiracetam 1,000 mg PO BID 03/19/20 01/12/22 losartan 50 mg PO DAILY 03/19/20 01/12/22 apixaban [Eliquis] 0.25 mg PO BID 01/12/22 01/12/22 chlorthalidone 12.5 mg PO DAILY 01/12/22 01/12/22 nitroglycerin [Nitrostat] See Rx Instructions .ROUTE .COMPLEX 01/12/22 01/12/22 rosuvastatin 5 mg PO HS 01/12/22 01/12/22 trazodone 50 mg PO HS 01/12/22 01/12/22 Allergies Allergy/AdvReac Type Severity Reaction Status Date / Time Penicillins Allergy Unknown Other Verified 08/12/20 13:37 tomato Allergy Unknown Other Verified 08/12/20 13:37 Review of Systems Review of Systems: CONSTITUTIONAL: Denies fever, chills, or sweats. ENT: Denies rhinorrhea, congestion. CARDIOVASCULAR: Reports midsternal chest tightness and chronic bilateral lower extremity edema. Denies palpitations. RESPIRATORY: Reports dyspnea on exertion. Denies cough, hemoptysis. GASTROINTESTINAL: Denies abdominal pain, nausea, vomiting, or diarrhea. GENITOURINARY: Denies dysuria or hematuria. MUSCULOSKELETAL: Denies back pain, joint pain, or myalgia. NEUROLOGIC: Denies headache, numbness, or weakness. All systems reviewed & are unremarkable except as noted in HPI and below PMFSH Past Medical History Medical History Anxiety Atrial fibrillation Depression Diastolic dysfunction Noted on echocardiogram from 2015 Epistaxis Erectile dysfunction Esophagitis determined by biopsy Noted from EGD August [address] Gupta Gastritis and duodenitis Noted on EGD August [address] Costa Hyperlipidemia Hypertension Kidney stones Mitral valve insufficiency Status post repair [facility] August 2019 Moderate pulmonary arterial systolic hypertension Noted on echocardiogram from 2015 with RVSP of 50 Neuropathic ulcer of left foot with fat layer exposed Obstructive sleep apnea With polysomnogram in 2009 recommending return to sleep lab for ASV titration as the patient was still having apneic events with settings of 18/14 on BiPAP Seizure disorder Multiple episodes of transient global amnesia thought to be possible partial seizure Tricuspid valve insufficiency, non-rheumatic Status post repair [facility] August 2019 Surgical History Surgical History (Reviewed
[2022-01-12 09:30] LABS: Basophils Percent Auto 0.4 % (0.2-1.2); Eosinophils Percent Auto 0.1 % (0-4.4); Hematocrit 35.9 % (42.0-52.0); Hemoglobin 11.4 g/dL (14.0-18.0); Immature Granulocyte Absolute 0.04 K/mm3 (0.00-0.031); Immature Granulocyte Percent A 0.4 % (0-0.5); Lymphocytes Absolute Auto 0.27 K/mm3 (0.9-3.2); Lymphocytes Percent Auto 2.9 % (18.3-44.2); Mean Corpuscular HGB Conc 31.8 g/dl (32-36); Mean Corpuscular Hemoglobin 29.7 pg (26-34); Mean Corpuscular Volume 93.5 fl (80-100); Mean Platelet Volume 10.7 fl (7.4-10.4); Monocytes Absolute Auto 0.4 K/mm3 (0.1-0.6); Monocytes Percent Auto 4.3 % (2.6-8.5); Neutrophils Absolute Auto 8.5 K/mm3 (1.3-6.7); Neutrophils Percent Auto 91.9 % (45.5-73.1); Platelet Count Result 131 k/mm3 (150-375); Red Blood Count 3.84 M/mm3 (4.6-6.20); Red Cell Distribution Width 15.9 % (11.5-14.5); White Blood Count 9.3 K/mm3 (4.5-10.0)
[2022-01-12 09:39] LABS: Add Urine Microscopic? YES; Appearance Urine Cloudy (Clear); Bilirubin Urine Negative (Negative); Blood Urine 2+ (Negative); Color Urine Amber (Yellow); Glucose Urine UA Negative (Negative); Ketones Urine Negative (Negative); Leukocyte Esterase Ur Negative LEU/UL (Negative); Mucus Urine Rare /lpf; Nitrate Urine Negative (Negative); Protein Urine 1+ mg/dL (Negative); Squamous Epithelial Cell Urine Rare /hpf (Few); Urobilinogen Urine Negative mg/dL (<2.0); WBC Urine 0-3 /hpf
[2022-01-12 09:41] LABS: Specific Grav Ur 1.031 (1.001-1.035)
[2022-01-12 09:43] LABS: INR 1.3; Prothrombin Time 15.7 Seconds (11.1-14.7)
[2022-01-12 09:44] LABS: Partial Thromboplastin Time 33.1 SECONDS (22.3-36.8)
[2022-01-12 09:49] LABS: Alanine Aminotransferase 22 U/L (4-50); Alkaline Phosphatase 68 U/L (38-126); Anion Gap 8 mmol/L (8-16); Aspartate Amino Transferase 36 U/L (17-59); Bilirubin,Total 1.5 mg/dL (0.2-1.3); Blood Urea Nitrogen 32 mg/dL (9-20); Calcium 8.6 mg/dL (8.4-10.2); Carbon Dioxide 25 mmol/L (22-30); Chloride 107 mmol/L (98-107); Estimated CRCL calculation 69 ml/min; Estimated Glomerular Filt Rate > 60; Glucose 141 mg/dL (65-110); Potassium 4.1 mmol/L (3.4-5.0); Sodium 140 mmol/L (137-145)
[2022-01-12 09:59] LABS: NT Pro B Type Natriuretic Pept 1900 pg/mL (5-100)
[2022-01-12 10:00] LABS: Troponin I < 0.012 ng/mL (0.000-0.034)
[2022-01-12] MEDS: FUROSEMIDE INJ 40 MG/4 ML VIAL IV PUSH ×2 (10:59→16:56)
[2022-01-12 11:26] LABS: Troponin I < 0.012 ng/mL (0.000-0.034)
[2022-01-12 13:00] LABS: Troponin I < 0.012 ng/mL (0.000-0.034)
--- NOTE | 2022-01-12 13:15 | PM.IMHP ---
H&P: HPI History of Present Illness Date/Time: Patient was placed observation status for expected length of stay less than 23 hours for management, will plan to re-evaluate tomorrow for improvement. 01/12/22 13:15 Chief Complaint: Shortness of breath Narrative: Mr. Rodriguez is a 81-year-old gentleman who presented emergency with complaints of increasing shortness breath over the last 3 to 4 days. Patient is somewhat of a poor historian and cannot give me full history so history will be coming from past medical records as well as what patient can recall. Patient states that he will take 3-4 steps with his walker and become very short of breath and have to sit down to catch his breath. Patient states he has noticed over the last week he has had orthopnea and not been able to lay flat has been so he has been sleeping in a recliner. Patient states that this morning the shortness of breath became very intense and he began to have chest pain across his entire chest and he did a nitroglycerin which made the pain slightly better. Patient states he then called EMS who gave a 2nd nitroglycerin and his chest pain went away. Patient states he did call his high density press laborer who is in [facility] when he began having this increasing shortness of breath and chlorthalidone was added to patient's regimen. Patient states the pain he was having in his chest is across his entire anterior chest, did not radiate down either shoulder or up into his jaw. Patient denied any associated nausea, vomiting, or diaphoresis. Patient states he has not had any lightheadedness, dizziness, syncopal, or near syncopal episodes. Patient states that he did have a cyst removed from his left foot and has been in a cast and a walking boot. Patient states that he also has noticed some increased swelling to his left lower extremity above his cast, and it feels like he has swelling to the left lower extremity in the cast area, but he is unable to tell. Patient states that he believes his right lower extremity has improved since he has been in the emergency room, but it is difficult to tell at times because of his lymphedema. Upon evaluation in emergency room patient was noted to have an elevated BNP, mild pulmonary vascular congestion on chest x-ray, and mild pleural effusions right being greater than left. Patient states he does have a history of congestive heart failure but only fine approximately 1 year ago. He states he does not know what his ejection fraction is and he does not believe he has had an echo Doppler recently. Per past medical history listed states the patient had left ventricular diastolic dysfunction in 2016. Patient states he was to follow-up with his high density press laborer this Sunday. Patient states he believes he has atrial fibrillation but was unsure of what the actual diagnosis was. Patient does have a known history of hypertension, lymphedema to bilateral lower extremities, seizure disorder, and obstructive sleep apnea with noncompliance. Patient also has a known history of tricuspid and mitral valve repairs that were performed at [facility]. Review of Systems Review of Systems: A 12 point review of systems was completed patient all pertinent positive and negative per HPI the remainder are unremarkable. [facility] Past Medical History Medical History Anxiety Atrial fibrillation Depression Diastolic dysfunction Noted on echocardiogram from 2015 Epistaxis Erectile dysfunction Esophagitis determined by biopsy Noted from EGD August [address] Gupta Gastritis and duodenitis Noted on EGD August [address] Costa Hyperlipidemia Hypertension Kidney stones Mitral valve insufficiency Status post repair [facility] August 2019 Moderate pulmonary arterial systolic hypertension Noted on echocardiogram from 2015 with RVSP of 50 Neuropathic ulcer of left foot with fat layer exposed Obstruct
[2022-01-12 13:37] LABS: Magnesium 1.8 mg/dL (1.6-2.3)
[2022-01-12 13:40] LABS: Hemoglobin A1C 5.7 % (<5.7)
--- NOTE | 2022-01-12 13:56 | ADMGEN ---
This patient, Ayo Rodriguez, was admitted to IMU Room 205-02 at 1313. Patient/family oriented to hospital policies and general routines including ID bracelet, bed and alarms, visiting hours, pain management, procedures, bathroom and other care routines, personal items, smoking policy, room service/diet, and visiting hours. Information on how to activate the Rapid Response Team has been discussed. Patient/Family are encouraged to report perceived risks to care and to ask questions if they do not understand what they are told or what they should do.
[2022-01-12] MEDS: PERFLUTREN LIPID MICROSPHERES 1.5 ML VIAL DILUTED TO 10 ML TOTAL VOLUME IV PUSH (14:28)
[2022-01-12 16:03] LABS: Troponin I < 0.012 ng/mL (0.000-0.034)
[2022-01-12] MEDS: levETIRAcetam 500 MG TABLET 1000 MG PO (20:42)
[2022-01-12] MEDS: ROSUVASTATIN 5 MG TABLET PO (20:43)
[2022-01-12] MEDS: APIXABAN 5 MG TABLET PO (20:43)
[2022-01-12] MEDS: traZODone HCL 50 MG TABLET PO (20:43)
[2022-01-13] VITALS (15 sets, daily range): BP systolic 142–168; BP diastolic 66–92; PULSE 63–82; RESP 16–20; TEMP 35.7–37.2; O2SAT 93–98
[2022-01-13 05:02] LABS: Basophils Percent Auto 0.4 % (0.2-1.2); Eosinophils Absolute Auto 0.1 K/mm3 (0-0.3); Eosinophils Percent Auto 1.2 % (0-4.4); Hematocrit 35.7 % (42.0-52.0); Hemoglobin 11.3 g/dL (14.0-18.0); Immature Granulocyte Absolute 0.06 K/mm3 (0.00-0.031); Immature Granulocyte Percent A 0.8 % (0-0.5); Immature Platelet Fraction Pct 5.5 % (0.9-11.2); Lymphocytes Absolute Auto 0.89 K/mm3 (0.9-3.2); Lymphocytes Percent Auto 11.4 % (18.3-44.2); Mean Corpuscular HGB Conc 31.7 g/dl (32-36); Mean Corpuscular Hemoglobin 29.7 pg (26-34); Mean Corpuscular Volume 93.7 fl (80-100); Mean Platelet Volume 10.8 fl (7.4-10.4); Monocytes Absolute Auto 0.6 K/mm3 (0.1-0.6); Monocytes Percent Auto 7.2 % (2.6-8.5); Neutrophils Absolute Auto 6.2 K/mm3 (1.3-6.7); Platelet Count Result 139 k/mm3 (150-375); Red Blood Count 3.81 M/mm3 (4.6-6.20); Red Cell Distribution Width 15.9 % (11.5-14.5); White Blood Count 7.8 K/mm3 (4.5-10.0)
[2022-01-13 05:10] LABS: Alanine Aminotransferase 20 U/L (4-50); Alkaline Phosphatase 62 U/L (38-126); Anion Gap 8 mmol/L (8-16); Aspartate Amino Transferase 29 U/L (17-59); Bilirubin,Total 1.5 mg/dL (0.2-1.3); Blood Urea Nitrogen 31 mg/dL (9-20); Calcium 8.3 mg/dL (8.4-10.2); Carbon Dioxide 30 mmol/L (22-30); Chloride 100 mmol/L (98-107); Estimated CRCL calculation 63 ml/min; Estimated Glomerular Filt Rate 58; Glucose 114 mg/dL (65-110); Magnesium 1.8 mg/dL (1.6-2.3); Potassium 3.6 mmol/L (3.4-5.0); Sodium 138 mmol/L (137-145)
[2022-01-13] MEDS: amLODIPine BESYLATE 5 MG TABLET 10 MG PO (09:21)
[2022-01-13] MEDS: CITALOPRAM HYDROBROMIDE 20 MG TABLET 40 MG PO (09:21)
[2022-01-13] MEDS: APIXABAN 5 MG TABLET PO ×2 (09:21→17:16)
[2022-01-13] MEDS: FUROSEMIDE INJ 40 MG/4 ML VIAL IV PUSH ×2 (09:21→17:16)
[2022-01-13] MEDS: CHLORTHALIDONE 12.5 MG TAB PO (09:22)
[2022-01-13] MEDS: LOSARTAN POTASSIUM 50 MG TABLET PO (09:22)
[2022-01-13] MEDS: levETIRAcetam 500 MG TABLET 1000 MG PO ×2 (09:22→20:31)
--- NOTE | 2022-01-13 12:14 | PM.IMPN ---
Progress Note: A&P Assessment and Plan (1) Acute exacerbation of CHF (congestive heart failure): Qualifiers: Heart failure type: unspecified Qualified Code(s): I50.9 - Heart failure, unspecified Code(s): I50.9 - Heart failure, unspecified Status: Acute (2) Atrial fibrillation: Code(s): I48.91 - Unspecified atrial fibrillation Status: Acute (3) Hyperglycemia: Code(s): R73.9 - Hyperglycemia, unspecified Status: Acute (4) Obstructive sleep apnea: Code(s): G47.33 - Obstructive sleep apnea (adult) (pediatric) Status: Acute (5) Hypertension: Code(s): I10 - Essential (primary) hypertension Status: Acute Additional Plan 01/12/22 Acute on chronic diastolic heart failure. The last echo noted in past medical records was from 2015 showed left ventricular diastolic dysfunction. At this point time will have another echo Doppler performed to re-evaluate patient's LV function, to evaluate patient's valves, and look for any pulmonary hypertension. Patient does have a history of sleep apnea which he is noncompliant with and he is supposed to be wearing BiPAP. Will place patient on Lasix 40 mg IV b.i.d. and continue other home medications. Patient was to start chlorthalidone today, but had not done so because he just got the medications filled and then came to the hospital because his shortness of breath had worsened. Will monitor intake and output very closely. Patient's ventricular rate is well controlled at this time. Patient is on Eliquis for his atrial fibrillation. Patient states that he did not have to stop his Eliquis for his cyst removal on his left lower extremity. 01/13/22 strict Is/Os OAC eliquis afib and h/o DVT/PE chlorthalidone, amlodipine, and losartan add hydralazine IV PRN statin keppra cont homed meds c/s Cardiology c/s PT/OT anticipate LOS > 3 days Subjective Date/time seen: 01/13/22 12:14 doing ok feeling a little better voiding a lot, non complaint with meds at home was told to take diuretic at night before sleeping and this caused him a lot of distress. advised to take w breakfast and dinner when discharged to avoid nocturia Exam Narrative: Constitutional: Patient is well-nourished in no acute distress. Patient is alert oriented x3 obese HEENT: Moist mucous membranes. No scleral icterus. No lymphadenopathy. Neck: No carotid bruits noted. Patient has positive JVD noted Lungs: Patient's lung sounds are decreased to bilateral bases with Left being greater than right. No wheezes or rhonchi noted Cardiovascular: Apical pulse is irregularly irregular, S1 variable S2, no S3 or S4 noted. Abdomen: Soft, round, and nontender. No palpable masses. Extremities: right lower extremity with a 2+ edema to the calf area. Patient has 3+ edema noted to his left lower extremity above his cast Skin: No rashes or lesions. Warm and dry. Skin is intact. Neurological: No focal neurological deficits. Cranial nerves II-XII grossly intact. Psychiatric: Cooperative, appropriate mood, and affect Objective Data Vital Signs Vital Signs: Vital Signs - 24 hr 01/12/22 12:52 01/12/22 13:29 01/12/22 14:00 Temperature 98.3 F 97.7 F Pulse Rate 80 51 L 66 Respiratory Rate 20 32 H Blood Pressure 127/85 127/81 Pulse Oximetry 95 93 01/12/22 16:00 01/12/22 16:26 01/12/22 18:00 Temperature 98.1 F Pulse Rate 74 84 65 Respiratory Rate 20 22 H Blood Pressure 148/74 H Pulse Oximetry 97 97 01/12/22 20:00 01/12/22 22:00 01/13/22 00:00 Temperature 96.3 F L 96.2 F L Pulse Rate 69 62 64 Respiratory Rate 22 H 20 Blood Pressure 156/78 H 142/72 H Pulse Oximetry 95 97 01/13/22 02:00 01/13/22 04:00 01/13/22 06:00 Temperature 97.2 F L Pulse Rate 66 66 64 Respiratory Rate 20 Blood Pressure 147/80 H Pulse Oximetry 97 01/13/22 08:00 01/13/22 10:00 Temperature 97.6 F Pulse Rate 73 66 Respiratory Rate 18 Blood Pressure 148
[2022-01-13] MEDS: traZODone HCL 50 MG TABLET PO (20:32)
[2022-01-13] MEDS: ROSUVASTATIN 5 MG TABLET PO (20:32)
[2022-01-14] VITALS (16 sets, daily range): BP systolic 113–142; BP diastolic 63–87; PULSE 57–120; RESP 16–24; TEMP 36.1–36.8; O2SAT 92–100
[2022-01-14] MEDS: FUROSEMIDE INJ 40 MG/4 ML VIAL IV PUSH ×2 (09:26→17:08)
[2022-01-14] MEDS: CHLORTHALIDONE 12.5 MG TAB PO (09:27)
[2022-01-14] MEDS: levETIRAcetam 500 MG TABLET 1000 MG PO ×2 (09:27→20:08)
[2022-01-14] MEDS: CITALOPRAM HYDROBROMIDE 20 MG TABLET 40 MG PO (09:27)
[2022-01-14] MEDS: LOSARTAN POTASSIUM 50 MG TABLET PO (09:28)
[2022-01-14] MEDS: amLODIPine BESYLATE 5 MG TABLET 10 MG PO (09:28)
[2022-01-14] MEDS: APIXABAN 5 MG TABLET PO ×2 (09:28→17:07)
--- NOTE | 2022-01-14 11:01 | PCPTNOTE ---
attempted to see Don for PT evaluation at 1055. States that he wants to wait because he just received a water pill and if he stands up he will not be able to control his urine. He also tells me that when he stands up his left boot slides on the floor here even though it does not slide on the floor at home.
--- NOTE | 2022-01-14 11:19 | PM.IMPN ---
Progress Note: A&P Assessment and Plan (1) Acute exacerbation of CHF (congestive heart failure): Qualifiers: Heart failure type: unspecified Qualified Code(s): I50.9 - Heart failure, unspecified Code(s): I50.9 - Heart failure, unspecified Status: Acute (2) Atrial fibrillation: Code(s): I48.91 - Unspecified atrial fibrillation Status: Acute (3) Hyperglycemia: Code(s): R73.9 - Hyperglycemia, unspecified Status: Acute (4) Obstructive sleep apnea: Code(s): G47.33 - Obstructive sleep apnea (adult) (pediatric) Status: Acute (5) Hypertension: Code(s): I10 - Essential (primary) hypertension Status: Acute (6) Acute diastolic CHF (congestive heart failure): Code(s): I50.31 - Acute diastolic (congestive) heart failure Status: Acute (7) Atrial fibrillation, new onset: Code(s): I48.91 - Unspecified atrial fibrillation Status: Acute (8) Chest pain: Code(s): R07.9 - Chest pain, unspecified Status: Acute (9) History of mitral valve repair: Code(s): Z98.890 - Other specified postprocedural states Status: Acute (10) Pulmonary hypertension: Code(s): I27.20 - Pulmonary hypertension, unspecified Status: Acute Additional Plan 01/12/22 Acute on chronic diastolic heart failure. The last echo noted in past medical records was from 2016 showed left ventricular diastolic dysfunction. At this point time will have another echo Doppler performed to re-evaluate patient's LV function, to evaluate patient's valves, and look for any pulmonary hypertension. Patient does have a history of sleep apnea which he is noncompliant with and he is supposed to be wearing BiPAP. Will place patient on Lasix 40 mg IV b.i.d. and continue other home medications. Patient was to start chlorthalidone today, but had not done so because he just got the medications filled and then came to the hospital because his shortness of breath had worsened. Will monitor intake and output very closely. Patient's ventricular rate is well controlled at this time. Patient states that he did not have to stop his Eliquis for his cyst removal on his left lower extremity. 01/13/22 strict Is/Os OAC eliquis afib and h/o DVT/PE chlorthalidone, amlodipine, and losartan add hydralazine IV PRN statin keppra cont homed meds c/s Cardiology c/s PT/OT anticipate LOS > 3 days 01/14/22 HgbA1c 5.7 Afib appears new from chart review pt is not on BB or other HR controlling or antiarrhythmic med-> spoke w Cardiology unlikely pt will need any his HR has been controlled since admission metoprolol IV PRN only Non compliant with CPAP. ->Has right ventricular enlargement and hypokinesis as well as pulmonary hypertension which may be caused by his sleep apnea c/s Cardiology , recs appreciated cont diuresis Subjective Date/time seen: 01/14/22 11:19 doing ok sitting up in chair asks what he can do to get better, wants to walk more when cast comes off. pt advised this will be fine when cleared by director translation Exam Narrative: Constitutional: no acute distress. Patient is alert oriented x3 obese HEENT: Moist mucous membranes. No scleral icterus. Lungs: Patient's lung sounds are decreased to bilateral bases with Left being greater than right. No wheezes or rhonchi noted Cardiovascular: IRR Abdomen: Soft, globose, ND,NT Extremities: right lower extremity with a 1+ edema to the calf area. Patient has 2+ edema noted to his left lower extremity above his cast Skin: No rashes or lesions. Warm and dry. Skin is intact. Neurological: No focal neurological deficits. Cranial nerves II-XII grossly intact. Psychiatric: Cooperative, appropriate mood, and affect Objective Data Vital Signs Vital Signs: Vital Signs - 24 hr 01/13/22 12:00 01/13/22 13:52 01/13/22 14:00 Temperature 97.3 F L Pulse Rate 63 77 Respiratory Rate 20 Blood Pressure 156/80 H Pu
--- NOTE | 2022-01-14 15:28 | PM.CNCAR ---
Assessment and Plan Assessment and plan (1) Acute diastolic CHF (congestive heart failure): Code(s): I50.31 - Acute diastolic (congestive) heart failure Status: Acute Assessment and Plan: Patient had CHF at the time of his mitral valve repair but no recurrence since then. He was admitted with acute diastolic CHF. He inadvertently stopped taking his furosemide to 4 weeks ago which may be contributing. Also has new onset of atrial fibrillation of uncertain duration which may be contributing factor as well. Improving with IV furosemide. 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 at home which is subtherapeutic for this indication. Agree with increasing to 5 mg b.i.d.. Probably switch to p.o. furosemide in the next day or 2, continue chlorthalidone as well Follow-up with his usual dryland farmer as scheduled this Sunday. He/she can address the issue of whether not cardioversion would be helpful at that time. (2) Atrial fibrillation, new onset: Code(s): I48.91 - Unspecified atrial fibrillation Status: Acute Assessment and Plan: New onset atrial fibrillation with a controlled heart rate. Duration uncertain Persistent? On Eliquis; agree with increasing the dose to 5 mg b.i.d. (3) Chest pain: Code(s): R07.9 - Chest pain, unspecified Status: Acute Assessment and Plan: Atypical vague chest pain. 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 (5) Obstructive sleep apnea: Code(s): G47.33 - Obstructive sleep apnea (adult) (pediatric) Status: Acute Assessment and Plan: Non compliant with CPAP. Has right ventricular enlargement and hypokinesis as well as pulmonary hypertension which may be caused by his sleep apnea Perhaps some of his RV involvement is related to his prior tricuspid regurgitation as well. 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 History of Present Illness History of Present Illness Consult date/time: 01/14/22 15:28 Requesting physician: Skye Liriano MD Consult reason: atrial fibrillation Reason For Visit: CHF exacerbation/hypoxia Narrative: Ayo Reyna is a 81-year-old male whom we were asked to see at the request of Dr. Quezada for advice and opinion regarding his new onset of atrial fibrillation, in consultation. The patient is followed by [facility] Physician Dr. Reagan Wu for his multiple medical problems, and by NAVA Salomon/Dr Luis Reza, cardiology at [place]. He has a history of severe mitral regurgitation and mitral valve repair 08/2019 with a 32 mm annuloplasty, and tricuspid valve repair with a 34 mm annuloplasty. Cardiac catheterization in 2018 showed 30% Left anterior descending stenosis. Echocardiogram 03/12 2021 showed concentric LVH, EF 62%, intact mitral and tricuspid valve repairs, moderate to severe right ventricular enlargement with moderate RV dysfunction, irregular heart rate. A Lexiscan 03/2021 showed normal perfusion, borderline LV enlargement, EF 68%. 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 No history of any atrial fibrillation. The patient increasing shortness of breath the last few days, such that just walking from room to room would cause significant ESTEBAN any came to the
[2022-01-14] MEDS: ROSUVASTATIN 5 MG TABLET PO (20:09)
[2022-01-14] MEDS: traZODone HCL 50 MG TABLET PO (20:09)
[2022-01-15] VITALS (17 sets, daily range): BP systolic 122–157; BP diastolic 63–83; PULSE 62–99; RESP 14–24; TEMP 36.3–36.8; O2SAT 88–100
--- NOTE | 2022-01-15 03:25 | PC.NURSE ---
Daylight Savings Time For Daylight Savings Time Ending in the Fall - Clocks are moved back. For Daylight Savings Time Beginning in the Spring - Clocks are moved ahead. For [facility], the time of change occurs at 0200 hrs. Time is taken from the senior sql server developer. This entry on the patient's chart recognizes the change in time reflected during documentation. Example: 2 entries for vital signs may be charted for 0200 hrs.
[2022-01-15 05:35] LABS: Anion Gap 6 mmol/L (8-16); Blood Urea Nitrogen 38 mg/dL (9-20); Calcium 8.7 mg/dL (8.4-10.2); Carbon Dioxide 35 mmol/L (22-30); Chloride 96 mmol/L (98-107); Estimated CRCL calculation 53 ml/min; Estimated Glomerular Filt Rate 49; Glucose 116 mg/dL (65-110); Potassium 3.3 mmol/L (3.4-5.0); Sodium 137 mmol/L (137-145)
[2022-01-15 07:43] LABS: Glucose Point of Care 122 mg/dl (65-105)
[2022-01-15] MEDS: amLODIPine BESYLATE 5 MG TABLET 10 MG PO (08:50)
[2022-01-15] MEDS: APIXABAN 5 MG TABLET PO ×2 (08:50→18:03)
[2022-01-15] MEDS: CHLORTHALIDONE 12.5 MG TAB PO (08:50)
[2022-01-15] MEDS: levETIRAcetam 500 MG TABLET 1000 MG PO ×2 (08:50→21:43)
[2022-01-15] MEDS: FUROSEMIDE INJ 40 MG/4 ML VIAL IV PUSH ×2 (08:50→18:03)
[2022-01-15] MEDS: LOSARTAN POTASSIUM 50 MG TABLET PO (08:50)
[2022-01-15] MEDS: CITALOPRAM HYDROBROMIDE 20 MG TABLET 40 MG PO (08:50)
--- NOTE | 2022-01-15 11:28 | PM.IMPN ---
Progress Note: A&P Assessment and Plan (1) Acute exacerbation of CHF (congestive heart failure): Qualifiers: Heart failure type: unspecified Qualified Code(s): I50.9 - Heart failure, unspecified Code(s): I50.9 - Heart failure, unspecified Status: Acute (2) Atrial fibrillation: Code(s): I48.91 - Unspecified atrial fibrillation Status: Acute (3) Hyperglycemia: Code(s): R73.9 - Hyperglycemia, unspecified Status: Acute (4) Obstructive sleep apnea: Code(s): G47.33 - Obstructive sleep apnea (adult) (pediatric) Status: Acute (5) Hypertension: Code(s): I10 - Essential (primary) hypertension Status: Acute (6) Acute diastolic CHF (congestive heart failure): Code(s): I50.31 - Acute diastolic (congestive) heart failure Status: Acute (7) Atrial fibrillation, new onset: Code(s): I48.91 - Unspecified atrial fibrillation Status: Acute (8) Chest pain: Code(s): R07.9 - Chest pain, unspecified Status: Acute (9) History of mitral valve repair: Code(s): Z98.890 - Other specified postprocedural states Status: Acute (10) Pulmonary hypertension: Code(s): I27.20 - Pulmonary hypertension, unspecified Status: Acute Additional Plan 01/12/22 Acute on chronic diastolic heart failure. The last echo noted in past medical records was from 2016 showed left ventricular diastolic dysfunction. At this point time will have another echo Doppler performed to re-evaluate patient's LV function, to evaluate patient's valves, and look for any pulmonary hypertension. Patient does have a history of sleep apnea which he is noncompliant with and he is supposed to be wearing BiPAP. Will place patient on Lasix 40 mg IV b.i.d. and continue other home medications. Patient was to start chlorthalidone today, but had not done so because he just got the medications filled and then came to the hospital because his shortness of breath had worsened. Will monitor intake and output very closely. Patient's ventricular rate is well controlled at this time. Patient states that he did not have to stop his Eliquis for his cyst removal on his left lower extremity. 01/13/22 strict Is/Os OAC eliquis afib and h/o DVT/PE chlorthalidone, amlodipine, and losartan add hydralazine IV PRN statin keppra cont homed meds c/s Cardiology c/s PT/OT anticipate LOS > 3 days 01/14/22 HgbA1c 5.7 Afib appears new from chart review pt is not on BB or other HR controlling or antiarrhythmic med-> spoke w Cardiology unlikely pt will need any his HR has been controlled since admission metoprolol IV PRN only Non compliant with CPAP. ->Has right ventricular enlargement and hypokinesis as well as pulmonary hypertension which may be caused by his sleep apnea c/s Cardiology , recs appreciated cont diuresis 01/15/2022 Patient has improved considerably Discontinue IV Lasix transition to p.o. Up with PT OT Anticipate discharge home tomorrow with physical therapy Consult child care cook Subjective Date/time seen: 01/15/22 11:28 Patient doing much better breathing has improved swelling has improved for left lower extremity cast is no longer well-fitting will need to have it replaced on Sunday. patient reports he already has an appointment Exam Narrative: Constitutional: no acute distress. Patient is alert oriented x3 obese HEENT: Moist mucous membranes. No scleral icterus. Lungs: Patient's lung sounds are decreased to bilateral bases. No wheezes or rhonchi noted on room air Cardiovascular: Regular rate Abdomen: Soft, globose, ND,NT Extremities: Edema resolved Skin: No rashes or lesions. Warm and dry. Skin is intact. Neurological: No focal neurological deficits. Cranial nerves II-XII grossly intact. Psychiatric: Cooperative, appropriate mood, and affect Objective Data Vital Signs Vital Signs: Vital Signs - 24 hr 01/14/22 12:00 01/14/22
[2022-01-15 12:27] LABS: Glucose Point of Care 127 mg/dl (65-105)
[2022-01-15] MEDS: POTASSIUM CHLORIDE 20 MEQ PACKET (FOR LIQUID) 40 MEQ PO (12:51)
--- NOTE | 2022-01-15 14:45 | PM.PNCARD ---
Progress Note: A&P Assessment and Plan (1) Acute diastolic CHF (congestive heart failure): Code(s): I50.31 - Acute diastolic (congestive) heart failure Status: Acute Assessment and Plan: Patient had CHF at the time of his mitral valve repair but no recurrence since then. He was admitted with acute diastolic CHF. He inadvertently stopped taking his furosemide to 4 weeks ago which may be contributing. Also has new onset of atrial fibrillation of uncertain duration which may be contributing factor as well. Improving with IV furosemide. 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 at home which is subtherapeutic for this indication. Agree with increasing to 5 mg b.i.d.. Currently taking furosemide 20 mg daily and chlorthalidone; will give another dose of furosemide 40 mg IV push today for orthopnea. Check a chest x-ray tomorrow to gauge if we need to increase his home furosemide dose for a while longer Follow-up with his usual log yard derrick operator as scheduled this Sunday. He/she can address the issue of whether not cardioversion would be helpful at that time. (2) Atrial fibrillation, new onset: Code(s): I48.91 - Unspecified atrial fibrillation Status: Acute Assessment and Plan: New onset atrial fibrillation with a controlled heart rate. Duration uncertain Persistent? On Eliquis; agree with increasing the dose to 5 mg b.i.d. (3) Chest pain: Code(s): R07.9 - Chest pain, unspecified Status: Acute Assessment and Plan: Atypical vague chest pain. History of mild CAD with 30% Left anterior descending stenosis in 2019 Negative Lexiscan in March 2021 No further workup recommended (4) History of mitral valve repair: Code(s): Z98.890 - Other specified postprocedural states Status: Acute Assessment and Plan: History of mitral and tricuspid valve repair in 2019 Valve repairs are intact. (5) Obstructive sleep apnea: Code(s): G47.33 - Obstructive sleep apnea (adult) (pediatric) Status: Acute Assessment and Plan: Non compliant with CPAP. Has right ventricular enlargement and hypokinesis as well as pulmonary hypertension which may be caused by his sleep apnea Perhaps some of his RV involvement is related to his prior tricuspid regurgitation as well. 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 Subjective Date/time seen: 01/15/22 14:45 Interval history: Follow-up for acute diastolic CHF, hypoxia, atrial fibrillation, atypical vague chest pain. Patient is followed at [facility] for his cardiac issues. Patient had inadvertently stopped his furosemide. History of mitral valve repair and tricuspid valve repair. New onset of atrial fibrillation with a controlled heart rate of uncertain duration. Date of service 01/15/2022: Getting better, a lot less swelling. However, still orthopneic and needing oxygen. Did not diurese much yesterday. On 2 L.. Telemetry shows AFib rate is controlled, usually 60-90, infrequently up to 105 beats per minute. . Review of Systems Constitutional: Constitutional: Denies weakness Eyes: Eyes: Reports no additional eye complaints ENT: Denies epistaxis Cardiovascular: Cardiovascular: Reports chest pain, Reports pedal edema, Reports leg edema, Denies lightheadedness, Denies palpitations, Reports dyspnea and Reports dyspnea on exertion Respiratory: Respiratory: Denies chest congestion, Reports dyspnea and Reports dyspnea on exertion Gastrointestinal: Gastrointestinal: Denies abdominal pain Genitourinary: Genitourinary: Denies dysuria Musculoskeletal: Musculoskeletal: Reports no additional musculoskeletal complaints Integumentary/Breasts: Skin/Breast: Reports wounds (Wound on left foot, in a cast and boot) Neurol
[2022-01-15 16:49] LABS: Glucose Point of Care 151 mg/dl (65-105)
[2022-01-15 20:03] LABS: Glucose Point of Care 136 mg/dl (65-105)
[2022-01-15] MEDS: traZODone HCL 50 MG TABLET PO (21:43)
[2022-01-15] MEDS: ROSUVASTATIN 5 MG TABLET PO (21:44)
[2022-01-16] VITALS (17 sets, daily range): BP systolic 115–146; BP diastolic 54–80; PULSE 55–95; RESP 18–20; TEMP 35–36.8; O2SAT 93–99
[2022-01-16 08:08] LABS: Glucose Point of Care 110 mg/dl (65-105)
[2022-01-16] MEDS: CHLORTHALIDONE 12.5 MG TAB PO (08:48)
[2022-01-16] MEDS: amLODIPine BESYLATE 5 MG TABLET 10 MG PO (08:48)
[2022-01-16] MEDS: FUROSEMIDE 20 MG TABLET PO (08:48)
[2022-01-16] MEDS: APIXABAN 5 MG TABLET PO ×2 (08:48→17:27)
[2022-01-16] MEDS: FUROSEMIDE INJ 40 MG/4 ML VIAL IV PUSH (08:48)
[2022-01-16] MEDS: LOSARTAN POTASSIUM 50 MG TABLET PO (08:48)
[2022-01-16] MEDS: CITALOPRAM HYDROBROMIDE 20 MG TABLET 40 MG PO (08:48)
[2022-01-16] MEDS: levETIRAcetam 500 MG TABLET 1000 MG PO ×2 (08:48→22:01)
[2022-01-16 11:37] LABS: Glucose Point of Care 139 mg/dl (65-105)
--- NOTE | 2022-01-16 11:43 | PM.PNCARD ---
Progress Note: A&P Assessment and Plan (1) Acute diastolic CHF (congestive heart failure): Code(s): I50.31 - Acute diastolic (congestive) heart failure Status: Acute Assessment and Plan: Patient had CHF at the time of his mitral valve repair but no recurrence since then. He was admitted with acute diastolic CHF. He inadvertently stopped taking his furosemide to 4 weeks ago which may be contributing. Also has new onset of atrial fibrillation of uncertain duration which may be contributing factor as well. 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 He/she can address the issue of whether not cardioversion would be helpful at that time. (2) Atrial fibrillation, new onset: Code(s): I48.91 - Unspecified atrial fibrillation Status: Acute Assessment and Plan: New onset atrial fibrillation with a controlled heart rate. Duration uncertain On Eliquis 5mg b.i.d. (3) Chest pain: Code(s): R07.9 - Chest pain, unspecified Status: Acute Assessment and Plan: Atypical vague chest pain. History of mild CAD with 30% Left anterior descending stenosis in 2019 Negative Lexiscan in March 2021 No further workup recommended (4) History of mitral valve repair: Code(s): Z98.890 - Other specified postprocedural states Status: Acute Assessment and Plan: History of mitral and tricuspid valve repair in 2019 Valve repairs are intact. (5) Obstructive sleep apnea: Code(s): G47.33 - Obstructive sleep apnea (adult) (pediatric) Status: Acute Assessment and Plan: Non compliant with CPAP. Has right ventricular enlargement and hypokinesis as well as pulmonary hypertension which may be caused by his sleep apnea Perhaps some of his RV involvement is related to his prior tricuspid regurgitation as well. 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 Subjective Date/time seen: 01/16/22 11:43 Interval history: Follow-up for acute diastolic CHF, hypoxia, atrial fibrillation, atypical vague chest pain. Patient is followed at [facility] for his cardiac issues. Patient had inadvertently stopped his furosemide. History of mitral valve repair and tricuspid valve repair. New onset of atrial fibrillation with a controlled heart rate of uncertain duration. Date of service 01/15/2022: Getting better, a lot less swelling. However, still orthopneic and needing oxygen. Did not diurese much yesterday. On 2 L.. Telemetry shows AFib rate is controlled, usually 60-90, infrequently up to 105 beats per minute. Date of service 01/16/2022: Continues to improve. States he can move his ankle better because the swelling has gone down so much. Breathing o.k. Does still report orthopnea. Remains rate controlled in Afib Review of Systems Constitutional: Constitutional: Denies weakness Eyes: Eyes: Reports no additional eye complaints ENT: Denies epistaxis Cardiovascular: Cardiovascular: Reports chest pain, Reports pedal edema, Reports leg edema, Denies lightheadedness, Denies palpitations, Reports dyspnea and Reports dyspnea on exertion Respiratory: Respiratory: Denies chest congestion, Reports dyspnea and Reports dyspnea on exertion Gastrointestinal: Gastrointestinal: Denies abdominal pain Genitourinary: Genitourinary: Denies dysuria Musculoskeletal: Musculoskeletal: Reports no additional musculoskeletal complaints Integumentary/Breasts: Skin/Breast: Reports wounds (Wound on left foot, in a cast and boot) Neurologic: Denies Abnormal speech present, Denies confusion and Denies weakness Psychiatric: Psychiatric: Denies confusion Endocrine: Endocrine: Den
--- NOTE | 2022-01-16 15:51 | PCOTNOTE ---
The OT treatment was unable to be completed this date. Will continue plan of care tomorrow.
[2022-01-16 16:03] LABS: Glucose Point of Care 118 mg/dl (65-105)
--- NOTE | 2022-01-16 17:50 | PM.IMPN ---
Progress Note: A&P Assessment and Plan (1) Acute exacerbation of CHF (congestive heart failure): Qualifiers: Heart failure type: unspecified Qualified Code(s): I50.9 - Heart failure, unspecified Code(s): I50.9 - Heart failure, unspecified Status: Acute (2) Atrial fibrillation: Code(s): I48.91 - Unspecified atrial fibrillation Status: Acute (3) Hyperglycemia: Code(s): R73.9 - Hyperglycemia, unspecified Status: Acute (4) Obstructive sleep apnea: Code(s): G47.33 - Obstructive sleep apnea (adult) (pediatric) Status: Acute (5) Hypertension: Code(s): I10 - Essential (primary) hypertension Status: Acute (6) Acute diastolic CHF (congestive heart failure): Code(s): I50.31 - Acute diastolic (congestive) heart failure Status: Acute (7) Atrial fibrillation, new onset: Code(s): I48.91 - Unspecified atrial fibrillation Status: Acute (8) Chest pain: Code(s): R07.9 - Chest pain, unspecified Status: Acute (9) History of mitral valve repair: Code(s): Z98.890 - Other specified postprocedural states Status: Acute (10) Pulmonary hypertension: Code(s): I27.20 - Pulmonary hypertension, unspecified Status: Acute Additional Plan 01/12/22 Acute on chronic diastolic heart failure. The last echo noted in past medical records was from 2016 showed left ventricular diastolic dysfunction. At this point time will have another echo Doppler performed to re-evaluate patient's LV function, to evaluate patient's valves, and look for any pulmonary hypertension. Patient does have a history of sleep apnea which he is noncompliant with and he is supposed to be wearing BiPAP. Will place patient on Lasix 40 mg IV b.i.d. and continue other home medications. Patient was to start chlorthalidone today, but had not done so because he just got the medications filled and then came to the hospital because his shortness of breath had worsened. Will monitor intake and output very closely. Patient's ventricular rate is well controlled at this time. Patient states that he did not have to stop his Eliquis for his cyst removal on his left lower extremity. 01/13/22 strict Is/Os OAC eliquis afib and h/o DVT/PE chlorthalidone, amlodipine, and losartan add hydralazine IV PRN statin keppra cont homed meds c/s Cardiology c/s PT/OT anticipate LOS > 3 days 01/14/22 HgbA1c 5.7 Afib appears new from chart review pt is not on BB or other HR controlling or antiarrhythmic med-> spoke w Cardiology unlikely pt will need any his HR has been controlled since admission metoprolol IV PRN only Non compliant with CPAP. ->Has right ventricular enlargement and hypokinesis as well as pulmonary hypertension which may be caused by his sleep apnea c/s Cardiology , recs appreciated cont diuresis 01/15/2022 Patient has improved considerably Discontinue IV Lasix transition to p.o. Up with PT OT Anticipate discharge home tomorrow with physical therapy Consult critical care nurse specialist 01/16/2022 still not at baseline resp status per pt cont current usp O2 eval Lasix 40mg PO QD per cardio possible dc tomorrow if cleared by cardio PT/OT Subjective Date/time seen: 01/16/22 17:50 pt doing ok not at baseline yet but improved up working w PT becomes SOB Exam Narrative: Constitutional: no acute distress. Patient is alert oriented x3 obese HEENT: Moist mucous membranes. No scleral icterus. Lungs: Patient's lung sounds are decreased to bilateral bases. No wheezes or rhonchi noted on room air Cardiovascular: Regular rate Abdomen: Soft, globose, ND,NT Extremities: Edema resolving 1+ LE 2+ R foot Skin: No rashes or lesions. Warm and dry. Skin is intact. Neurological: No focal neurological deficits. Cranial nerves II-XII grossly intact. Psychiatric: Cooperative, appropriate mood, and affect Objective Data Vital Signs Vital Signs: Vi
[2022-01-16 19:35] LABS: Glucose Point of Care 132 mg/dl (65-105)
[2022-01-16] MEDS: traZODone HCL 50 MG TABLET PO (22:02)
[2022-01-16] MEDS: ROSUVASTATIN 5 MG TABLET PO (22:02)
[2022-01-17] VITALS (15 sets, daily range): BP systolic 107–148; BP diastolic 62–83; PULSE 66–96; RESP 18; TEMP 35.7–36.4; O2SAT 87–99
[2022-01-17 08:21] LABS: Glucose Point of Care 117 mg/dl (65-105)
[2022-01-17] MEDS: CHLORTHALIDONE 12.5 MG TAB PO (10:35)
[2022-01-17] MEDS: levETIRAcetam 500 MG TABLET 1000 MG PO (10:35)
[2022-01-17] MEDS: LOSARTAN POTASSIUM 50 MG TABLET PO (10:36)
[2022-01-17] MEDS: amLODIPine BESYLATE 5 MG TABLET 10 MG PO (10:36)
[2022-01-17] MEDS: APIXABAN 5 MG TABLET PO (10:36)
[2022-01-17] MEDS: CITALOPRAM HYDROBROMIDE 20 MG TABLET 40 MG PO (10:36)
--- NOTE | 2022-01-17 11:31 | PM.PNCARD ---
Progress Note: A&P Assessment and Plan (1) Acute diastolic CHF (congestive heart failure): Code(s): I50.31 - Acute diastolic (congestive) heart failure Status: Acute Assessment and Plan: Patient had CHF at the time of his mitral valve repair but no recurrence since then. He was admitted with acute diastolic CHF. He inadvertently stopped taking his furosemide to 4 weeks ago which may be contributing. Also has new onset of atrial fibrillation of uncertain duration which may be contributing factor as well. Improved with IV furosemide Home furosemide dose is 40 mg (daily? ) Still has pulmonary vascular congestion and some swelling, will increase furosemide to 40mg b.i.d. 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 He/she can address the issue of whether not cardioversion would be helpful at that time, and when to reduce the furosemide dose (2) Atrial fibrillation, new onset: Code(s): I48.91 - Unspecified atrial fibrillation Status: Acute Assessment and Plan: New onset atrial fibrillation With a controlled heart rate, not on any AV node blocking agents. May have some AV node dysfxn. Duration uncertain On Eliquis 5mg b.i.d. (3) Chest pain: Code(s): R07.9 - Chest pain, unspecified Status: Acute Assessment and Plan: Atypical vague chest pain. 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 (5) Obstructive sleep apnea: Code(s): G47.33 - Obstructive sleep apnea (adult) (pediatric) Status: Acute Assessment and Plan: Non compliant with CPAP. Has right ventricular enlargement and hypokinesis as well as pulmonary hypertension which may be caused by his sleep apnea Perhaps some of his RV involvement is related to his prior tricuspid regurgitation as well. 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 (7) Nonsustained ventricular tachycardia: Code(s): I47.2 - Ventricular tachycardia Status: Acute Assessment and Plan: Noted, follow electrolytes, hesitant to use any BB in view of AV node dysfxn. Subjective Date/time seen: 01/17/22 11:31 Interval history: Follow-up for acute diastolic CHF, hypoxia, atrial fibrillation, atypical vague chest pain. Patient is followed at [facility] for his cardiac issues. Patient had inadvertently stopped his furosemide. History of mitral valve repair and tricuspid valve repair. New onset of atrial fibrillation with a controlled heart rate of uncertain duration. Date of service 01/15/2022: Getting better, a lot less swelling. However, still orthopneic and needing oxygen. Did not diurese much yesterday. On 2 L.. Telemetry shows AFib rate is controlled, usually 60-90, infrequently up to 105 beats per minute. Date of service 01/16/2022: Continues to improve. States he can move his ankle better because the swelling has gone down so much. Breathing o.k. Does still report orthopnea. Remains rate controlled in Afib Date of service 01/17/2022: Has not been out of better moving much but breathing is better. Still on O2 at 1 L. Loss 6-8 kilos during this hospital stay. Chest x-ray yesterday still shows some pulmonary vascular congestion. Telemetry: AFib rate 66 70s, occasionally upper 40s. Review of Systems Constitutional: Constitutional: Denies weakness Eyes: Eyes: Reports no additional eye complaints ENT: Denies epistaxis Cardiovascular: Cardiovascular
[2022-01-17 12:03] LABS: Glucose Point of Care 185 mg/dl (65-105)
--- NOTE | 2022-01-17 13:25 | PM.DS ---
DS: Admitting Diagnosis Discharge Date 01/17/2022 Admitting Diagnosis shortness of breath DS: Discharge Diagnosis Discharge Diagnosis (1) Acute exacerbation of CHF (congestive heart failure): Qualifiers: Heart failure type: unspecified Qualified Code(s): I50.9 - Heart failure, unspecified Code(s): I50.9 - Heart failure, unspecified Status: Acute (2) Atrial fibrillation: Code(s): I48.91 - Unspecified atrial fibrillation Status: Acute Assessment and Plan: Patient's ventricular rate is well controlled at this time. Patient is on Eliquis for his atrial fibrillation. Patient states that he did not have to stop his Eliquis for his cyst removal on his left lower extremity. (3) Hyperglycemia: Code(s): R73.9 - Hyperglycemia, unspecified Status: Acute Assessment and Plan: Patient has had hyperglycemia noted on his chemistry panel. Will have a hemoglobin A1c to evaluate for diabetes mellitus. (4) Obstructive sleep apnea: Code(s): G47.33 - Obstructive sleep apnea (adult) (pediatric) Status: Acute Assessment and Plan: Will continue to encourage patient to use BiPAP, but will have to figure out when last sleep study was to see if patient will need a new sleep study as an outpatient for new settings on BiPAP. (5) Hypertension: Code(s): I10 - Essential (primary) hypertension Status: Acute (6) Acute diastolic CHF (congestive heart failure): Code(s): I50.31 - Acute diastolic (congestive) heart failure Status: Acute (7) Atrial fibrillation, new onset: Code(s): I48.91 - Unspecified atrial fibrillation Status: Acute (8) Chest pain: Code(s): R07.9 - Chest pain, unspecified Status: Acute (9) History of mitral valve repair: Code(s): Z98.890 - Other specified postprocedural states Status: Acute (10) Pulmonary hypertension: Code(s): I27.20 - Pulmonary hypertension, unspecified Status: Acute DS: Summary Hospital Course Reason for hospitalization: Chief Complaint: Shortness of breath Narrative: Mr. Rodriguez is a 81-year-old gentleman who presented emergency with complaints of increasing shortness breath over the last 3 to 4 days. Patient is somewhat of a poor historian and cannot give me full history so history will be coming from past medical records as well as what patient can recall. Patient states that he will take 3-4 steps with his walker and become very short of breath and have to sit down to catch his breath. Patient states he has noticed over the last week he has had orthopnea and not been able to lay flat has been so he has been sleeping in a recliner. Patient states that this morning the shortness of breath became very intense and he began to have chest pain across his entire chest and he did a nitroglycerin which made the pain slightly better. Patient states he then called EMS who gave a 2nd nitroglycerin and his chest pain went away. Patient states he did call his meat carrier who is in [facility] when he began having this increasing shortness of breath and chlorthalidone was added to patient's regimen. Patient states the pain he was having in his chest is across his entire anterior chest, did not radiate down either shoulder or up into his jaw. Patient denied any associated nausea, vomiting, or diaphoresis. Patient states he has not had any lightheadedness, dizziness, syncopal, or near syncopal episodes. Patient states that he did have a cyst removed from his left foot and has been in a cast and a walking boot. Patient states that he also has noticed some increased swelling to his left lower extremity above his cast, and it feels like he has swelling to the left lower extremity in the cast area, but he is unable to tell. Patient states that he believes his right lower extremity has improved since he has been in the emergency room, but it is difficult to tell at times because of his lymph
--- NOTE | 2022-01-17 15:54 | HOMEO2EVAL ---
Evaluation was performed at [facility] Home Oxygen Evaluation RC: Home Oxygen (O2) Evaluation Start: 01/16/22 17:23 Freq: ONCE Status: Active Protocol: RPE Activity Type Activity Date Activity User E-Sign Co-Sign Detail Recorded Client Recorded Date Recorded By Document 01/17/22 15:30 [email or web address] [email or web address] 01/17/22 15:54 NUNO Document 01/17/22 15:31 [email or web address] [email or web address] 01/17/22 15:54 NUNO Document 01/17/22 15:32 [email or web address] [email or web address] 01/17/22 15:54 NUNO Document 01/17/22 15:33 [email or web address] [email or web address] 01/17/22 15:54 NUNO Document 01/17/22 15:45 NUNO [email or web address] 01/17/22 15:54 NUNO 01/17/22 01/17/22 01/17/22 15:30 15:31 15:32 Home O2 Evaluation Test Phase Resting Exercise Exercise Oxygen Delivery Room Air Room Air Nasal Cannula Oxygen Flow Rate (L/min) 1 Pulse Oximetry (90-100 %) 92 87 L 87 L Pulse Rate (60-100 beats/min) 96 96 92 Home Oxygen Evaluation Comments Treatment Charges O2 Evaluation - Inpatient 01/17/22 01/17/22 15:33 15:45 Home O2 Evaluation Test Phase Exercise Resting Oxygen Delivery Nasal Cannula Room Air Oxygen Flow Rate (L/min) 2 Pulse Oximetry (90-100 %) 91 93 Pulse Rate (60-100 beats/min) 93 94 Home Oxygen Evaluation Comments pt requires 2 l with activity Treatment Charges
--- NOTE | 2022-01-17 16:02 | PCRCNOTE ---
Home o2 eval done, set up with [facility], will bring tank to pt room prior to D/C
== END 2022-01-17 16:26 | disposition home or self-care (01) | DRG 291 ==
LOC: ANHED 09:20 → ANHIMU 12:43
PROVIDERS: Internal Medicine Cardiovascular Disease; Nurse Practitioner Adult Health; Physician Assistant; Admitting Provider Internal Medicine; Emergency Provider Emergency Medicine; PCP Internal Medicine; Visit Provider Family Medicine
DX: I13.0 Hypertensive heart and chronic kidney disease with heart failure and stage 1 through stage 4 chronic kidney disease, or unspecified chronic kidney disease (principal); I50.33 Acute on chronic diastolic (congestive) heart failure; I47.2 Ventricular tachycardia; N18.9 Chronic kidney disease, unspecified; G47.33 Obstructive sleep apnea (adult) (pediatric); E78.5 Hyperlipidemia, unspecified; G40.909 Epilepsy, unspecified, not intractable, without status epilepticus; I48.91 Unspecified atrial fibrillation; F41.9 Anxiety disorder, unspecified; R73.9 Hyperglycemia, unspecified; R09.02 Hypoxemia; I25.10 Atherosclerotic heart disease of native coronary artery without angina pectoris; E66.9 Obesity, unspecified; Z68.37 Body mass index [BMI] 37.0-37.9, adult; Z90.49 Acquired absence of other specified parts of digestive tract; Z86.718 Personal history of other venous thrombosis and embolism; Z79.01 Long term (current) use of anticoagulants; Z86.711 Personal history of pulmonary embolism; Z86.73 Personal history of transient ischemic attack (TIA), and cerebral infarction without residual deficits; Z91.19 Patient's noncompliance with other medical treatment and regimen
CPT/HCPCS: 36415; 71045; 71275; 80048; 80053; 81001; 82948; 83036; 83735; 83880; 84484; 85025; 85055; 85610; 85730; 93005; 94618; 96374; 96375; 96376; 97110; 97162; 97166; 97530; 97535; 99285; A9270; C8929; G0378; J1940; Q9957; Q9967

== ENCOUNTER 2023-12-19 14:41 | Outpatient (CLI) | payer MEDICARE, SELFPAY ==
--- NOTE | ~2023-12-19 | MR_ITS ---
EXAMINATION: MR foot LT wo/w con DATE: 12/19/2023 15:47 INDICATION: Left foot pain TECHNIQUE: Magnetic resonance imaging (MRI) of the left fore/mid foot was performed without intraveno us contrast. Sequences included axial, sagittal and coronal T1-weighted FSE, axial T2-weighted FS FSE , sagittal fluid sensitive FSE STIR, coronal PD-weighted FS FSE, axial T1-weighted FS FSE and postcon trast T1-weighted FS FSE. COMPARISON: MRI dated 03/23/2021 and radiograph dated 07/30/2020 . FINDINGS: Chronic rocker-bottom foot deformity. Neuropathic arthropathy in the midfoot with severe osteoarthrit is with destructive changes at the second-fourth tarsal metatarsal joints and at the talonavicular an d naviculocuneiform joints. Additional focally severe osteoarthritis but without the associated destr uctive changes at the posterior tibiotalar, anterior subtalar joints and along portions of the calcan eocuboid joint. Partially visualized low signal intensity first metatarsophalangeal arthrodesis impla nt at the first metatarsal diaphysis. Old healed fracture deformities at the base and diaphysis of th e fifth metatarsal. No acute fracture. Prominent diffuse fatty atrophy of the intrinsic musculature o f the foot also likely related to chronic neuropathy. Small amount of gas in the soft tissues between between the deep plantar ulceration and the underlyin g cuboid and base of the fourth metatarsal. There is diffuse enhancement and decreased T1 and increas ed T2 signal throughout the cuboid and extending into the bases of the fourth and fifth metatarsals a nd adjacent lateral cuneiform consistent with osteomyelitis. There is enhancing synovitis throughout the joints at the left ankle, mid and hindfoot which could be either reactive or related to septic ar thritis. There are however no significant joint effusions. IMPRESSION: 1. 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 2. Deep plantar ulceration at the mid foot with underlying likely septic arthritis with osteomyelitis at the cuboid, base of the fourth and fifth metatarsals and portions of the lateral cuneiform. 3. Enhancing synovitis also involving the subtalar and ankle joints which could also represent septic arthritis although there is no associated joint effusion or definitive adjacent osteoarthritis to mo re specifically suggest this. Reviewed, dictated and finalized at location A. [employer] IMPRESSION: 1. 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 2. Deep plantar ulceration at the mid foot with underlying likely septic arthri tis with osteomyelitis at the cuboid, base of the fourth and fifth metatarsals and portions of the lateral cuneiform. 3. Enhancing synovitis also involving the subtalar and ankle joints which could also represent septic arthritis although there is no associated joint effusion or definitive adjacent osteoarthritis to more specifically suggest this.
== END 2023-12-19 14:42 ==
LOC: MICIMG 14:42
PROVIDERS: PCP Podiatrist Foot & Ankle Surgery; Visit Provider Podiatrist Foot & Ankle Surgery
DX: L97.423 Non-pressure chronic ulcer of left heel and midfoot with necrosis of muscle (principal); M65.872 Other synovitis and tenosynovitis, left ankle and foot; M19.072 Primary osteoarthritis, left ankle and foot
CPT/HCPCS: 73720; A9577

== ENCOUNTER 2025-04-14 15:31 | Outpatient (CLI) | payer MEDICARE, SELFPAY ==
[2025-04-14 16:27] LABS: Anion Gap 8 mmol/L (4-12); Blood Urea Nitrogen 27 mg/dL (9-20); Calcium 9.2 mg/dL (8.4-10.2); Carbon Dioxide 34 mmol/L (22-30); Chloride 98 mmol/L (98-107); Estimated Glomerular Filt Rate 58; Glucose 115 mg/dL (65-110); Potassium 4.2 mmol/L (3.4-5.0); Sodium 140 mmol/L (137-145)
[2025-04-14 16:33] LABS: NT Pro B Type Natriuretic Pept 227 pg/mL (19.9-100)
--- OUTSIDE RECORDS SUMMARY | 2025-04-14 16:57 | XMS_ITS | Encounter Summary ---
Author Organization [facility] Address [address] [place] [address] Phone Care Team Providers Care Metal Bench Patternmaker Name Role Phone Reagan Wu MD Primary Care Provider Onur Ku MD Unavailable [phone] Leeann Robert DPRayray Unavailable [phone] Encounter Details Date Type Department Care Team (Late st Contact Info) Description 04/14/2025 Telephone [facility] Cardiology [address] [facility] [address] 8th [place] [address] [place] [id number] Ofelia Reza MD [address] [place] [address] Social History Tobacco Use Types Packs/Day Years Used Date Smoking Tobacco: Never Smokeless Tobacco: Never Alcohol Use Standard Drinks/Week Comments Not Currently 0 (1 standard drink = 0.6 oz pur e alcohol) OASIS D0700: Social Isolation Answer Da te Recorded Frequency of experiencing loneliness or isolatio n Rarely 02/21/2024 Social Connection and Isolation Panel [NHANES] A nswer Date Recorded Frequency of Communication w ith Friends and Family Once a week 09/01/2019 Frequency of Social Gatherin gs with Friends and Family Once a week 09/01/2019 Attends Holiness Services 1 to 4 times per year 09/01/2019 Active Member of Clubs or Organizations No 09/01/2019 Attends Club or Organization Meetings Never 09/01/2019 Marital Status 09/01/2019 AUDIT-C Answer Date Recorded Q1: How often do you have a drink containing alcohol? Never 06/27/2024 Q2: How many drinks containi ng alcohol do you have on a typical day when you are drinking? Patient does not drink Frequency of Binge Drinking Not on file 06/06 Overall Financial Resource Strain (CARDIA) Answe r Date Recorded Difficulty of Paying Living Expenses Not very ch[address] rd 09/01/2019 PHQ-2 Answer Date Recorded PHQ-2 Total Score (If total score is 3 or more points, staff should administer the PHQ-9) 0 02/24/2025 Hunger Vital Sign Answer Date Recorded Worried About Running Out of Food in the Last Ye ar Never true 09/01/2019 Ran Out of Food in the Last Year Never true 09/01/2019 PRAPARE - Transportation Answer Date Re corded Lack of Transportation (Medical) No 09/01/2019 Lack of Transportation (Non-Medical) No 09/01/2019 Personal Safety Answer Date Recorded Have you ever been in or are you currently in a harmful physical or emotional relationship or is someone making you feel afraid or unsafe? 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 Swelling present, and not going down. She noted this appears like normal amount of swelling. Weight 260 today (261 at OV on 04/02) No fever, illness, sick sx. No sputum or froth from cough. Asked which lab facility we could have labs done to eval for any fluid retention/congestive problems. They will go to [facility] for collection. FAX: [phone] Noted orders were faxed. Advised they call to confirm with [facility], and if appointment is needed. Echo scheduled for Tuesday 04/17 * Telephone Encounter - BaileyBlanka - 04/14/2025 2:24 PM CDT Renei Pt calling and states he has been experiencing dry cough and SOB for couple of weeks. Patient also has swelling in ankles documented in this encounter Plan of Treatment Scheduled Orders Name Type Priority Associated Diagnoses Orde r Schedule Basic metabolic panel Lab Routine Chronic heart failure with preserved ejection fraction (HCC) Bilateral leg edema SOB (shortness of breath) Expected: 04/14/2025, Expires: 04/14/2026 Pro B-type natriuretic peptide Lab Routine Chronic heart failure with preserved ejection fraction (HCC) Bilateral leg edema SOB (shortness of breath) Expected: 04/14/2025, Expires: 04/14/2026 documented as of this encounter Visit Diagnoses Diagnosis Chronic heart failure with preserved ejection fraction (HCC)- Primary Bilateral leg edema Edema SOB (shortness of breath) Shortness of breath documented in this encounter Care Teams Metal Bench Patternmaker Relationship Specialty Start Date End Date Reagan Wu MD PCP - General 05/31/17 Onur Ku MD Referring Physician Cardiology 05/14/19 Leeann Robert DPM [address] [place] [id number] Consulting Physician Foot and Ankle Surg 06/29/22 documented as of this encounter
--- OUTSIDE RECORDS SUMMARY | 2025-04-14 16:57 | XMS_ITS | Encounter Summary ---
Author Organization [facility] Address [address] [place] [address] Care Team Providers Care Cross Cut Saw Operator Name Role Phone Reagan Wu MD Primary Care Provider Onur Ku MD Unavailable [phone] Leeann Robert DPM Unavailable [phone] Encounter Details Date Type Department Care Team (Late st Contact Info) Description 04/14/2025 Telephone [facility] [address] [address] Reagan Wu MD [address] [address] Social History Tobacco Use Types Packs/Day Years [...] and Family Once a week 09/01/2019 Attends Alevism Services 1 to 4 times per year [...] on file 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 Will also call in benzonatate and please schedule appt with CHILD WELFARE DIRECTOR Sunday if not improved. * Telephone Encounter - Charmaine Mcwilliams CMA - 04/14/2025 1:27 PM CDT Symptoms (primary and all associated):. Dry cough that has not gone away, sit on his chest won't goanywhere Onset/Frequency:. / Temperature:. None Recent POCT testing (Strep/Flu/COVID/etc.):. Recent lab results:. Recent B/P or SPO2 results:. Current treatments (both OTC and RX):. Cough drops, honey lemon hot water, Current dosage of insulin/Coumadin:. Last office visit:.02/24 Preferred phone:. [phone] Confirm pharmacy:. [facility] Allergies reviewed:. Yes documented in this encounter Plan of Treatment Not on file documented as of this encounter Visit Diagnoses Not on filedocumented in this encounter Care Teams Cross Cut Saw Operator Relationship Specialty Start Date End Date Reagan Wu MD PCP - General 05/31/17 Onur Ku MD Referring Physician Cardiology 05/14/19 Leeann Robert DPM [address] [place] [id number] Consulting Physician Foot and Ankle Surg 06/29/22 documented as of this encounter
--- OUTSIDE RECORDS SUMMARY | 2025-04-14 16:58 | XMS_ITS | Encounter Summary ---
Author Organization [facility] Address [address] [place] [address] Phone Care Team Providers Care Lead Person Name Role Phone Reagan Wu MD Primary Care Provider Onur Ku MD Unavailable [phone] Leeann Robert DPM Unavailable [phone] Encounter Details Date Type Department Care Team (Late st Contact Info) Description 08/24/2023 Telephone [facility] Cardiology [address] [facility] [address] 8th [place] [address] [place] [address] Danielle Yap Social History Tobacco Use Types Packs/Day Years Used Date Smoking Tobacco: Never Smokeless Tobacco: Never Alcohol Use Standard Drinks/Week Comments Not Currently 0 (1 standard drink = 0.6 oz pur e alcohol) Social Connection and Isolation Panel [NHANES] A nswer Date Recorded Frequency of Communication w ith Friends and Family Once a week 09/01/2019 Frequency of Social Gatherin gs with Friends and Family Once a week 09/01/2019 Attends Gnosticism Services 1 to 4 times per year 09/01/2019 Active Member of Clubs or Organizations No 09/01/2019 Attends Club or Organization Meetings Never 09/01/2019 Marital Status 09/01/2019 AUDIT-C Answer Date Recorded Q1: How often do you have a drink containing alcohol? Never 05/07/2023 Q2: How many drinks containi ng alcohol do you have on a typical day when you are drinking? Patient does not drink 3 Q3: How often do you have si x or more drinks on one occasion? Never 05/07/2023 Overall Financial Resource Strain (CARDIA) Answe r Date Recorded Difficulty of Paying Living Expenses Not very [address] 09/01/2019 PHQ-2 Answer Date Recorded PHQ-2 Total Score (If total score is 3 or more points, staff should administer the PHQ-9) 0 08/14/2023 Hunger Vital Sign Answer Date Recorded Worried About Running Out of Food in the Last Ye ar Never true 09/01/2019 Ran Out of Food in the Last Year Never true 09/01/2019 PRAPARE - Transportation Answer Date Re corded Lack of Transportation (Medical) No 09/01/2019 Lack of Transportation (Non-Medical) No 09/01/2019 Sex and Gender Information Value Date Recorded Sex Assigned at Not on file 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 06/29/2022 06/29/2022 06/27/2024 11:27 AM CDT documented as of this encounter Care Teams Lead Person Relationship Specialty Start Date End Date Reagan Wu MD PCP - General 05/31/17 Onur Ku MD Referring Physician Cardiology 05/14/19 Leeann Robert DPM [address] [place] [id number] Consulting Physician Foot and Ankle Surg 06/29/22 documented as of this encounter
--- OUTSIDE RECORDS SUMMARY | 2025-04-14 16:58 | XMS_ITS | Encounter Summary ---
Author Organization [facility] Address [address] [place] [address] Phone Care Team Providers Care Copyright Expert Name Role Phone Reagan Wu MD Primary Care Provider Onur Ku MD Unavailable [phone] Leeann Robert DPM Unavailable [phone] Encounter Details Date Type Department Care Team (Latest Contact Info) Description 05/16/2019 Orders Only [facility] Scanning, Provider Social History Tobacco Use Types Packs/Day Years Used Date Smoking Tobacco: Never Smokeless Tobacco: Never Alcohol Use Standard Drinks/Week Comments Yes 0 (1 standard drink = 0.6 oz pur e alcohol) Sex and Gender Information Value Date Recorded Sex Assigned at Not on file 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 Gender Identity Not on file Sexual Orientation Not on file documented as of this encounter Plan of Treatment Not on file documented as of this encounter Procedures Procedure Name Priority Date/Time Associated Diagnosis Comments CARDIOLOGY DOCUMENT SCAN 05/16/2019 documented in this encounter Results * SCAN - CARDIOLOGY (05/16/2019) Anatomical Region Laterality Modality Other us Provider Scanning [facility] CARDIAC SERVICES PROCEDURES Final Result documented in this encounter Visit Diagnoses Not on filedocumented in this encounter Additional Health Concerns Infection Onset Date Last Indicated Resolved Time MDR gram neg/ESBL Comment:Multiple C&S since 2021 negative for MDR gram neg/ESBL left foot. 06/29/2022 06/29/2022 06/27/2024 11:27 AM CDT documented as of this encounter Care Teams Copyright Expert Relationship Specialty Start Date End Date Reagan Wu MD PCP - General 05/31/17 Onur Ku MD Referring Physician Cardiology 05/14/19 Leeann Robert DPM [address] [place] [id number] Consulting Physician Foot and Ankle Surg 06/29/22 documented as of this encounter
--- OUTSIDE RECORDS SUMMARY | 2025-04-14 16:58 | XMS_ITS | Encounter Summary ---
Author Organization [facility] Address [address] [place] [address] Phone Care Team Providers Care In House Counsel Name Role Phone Reagan Wu MD Primary Care Provider Onur Ku MD Unavailable [phone] Leeann Robert DPM Unavailable [phone] Encounter Details Date Type Department Care Team (Latest Contact Info) Description 05/13/2019 Orders Only [facility] Scanning, Provider Social History Tobacco Use Types Packs/Day Years Used Date Smoking Tobacco: Never Smokeless Tobacco: Never Alcohol Use Standard Drinks/Week Comments Yes 0 (1 standard drink = 0.6 oz pur e alcohol) Sex and Gender Information Value Date Recorded Sex Assigned at Not on file 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 Gender Identity Not on file Sexual Orientation Not on file documented as of this encounter Plan of Treatment Not on file documented as of this encounter Procedures Procedure Name Priority Date/Time Associated Diagnosis Comments CARDIOLOGY DOCUMENT SCAN 05/13/2019 documented in this encounter Results * SCAN - CARDIOLOGY (05/13/2019) Anatomical Region Laterality Modality Other us Provider Scanning [facility] CARDIAC SERVICES PROCEDURES Final Result documented in this encounter Visit Diagnoses Not on filedocumented in this encounter Additional Health Concerns Infection Onset Date Last Indicated Resolved Time MDR gram neg/ESBL Comment:Multiple C&S since 2021 negative for MDR gram neg/ESBL left foot. 06/29/2022 06/29/2022 06/27/2024 11:27 AM CDT documented as of this encounter Care Teams In House Counsel Relationship Specialty Start Date End Date Reagan Wu MD PCP - General 05/31/17 Onur Ku MD Referring Physician Cardiology 05/14/19 Leeann Robert DPM [address] [place] [phone] Consulting Physician Foot and Ankle Surg 06/29/22 documented as of this encounter
--- OUTSIDE RECORDS SUMMARY | 2025-04-14 16:58 | XMS_ITS | Clinical Summary ---
Author Organization [facility] Address [address] [place] [address] Care Team Providers Care Piano Accompanist Name Role Phone Reagan Wu MD Primary Care Provider Onur Ku MD Unavailable [phone] Leeann Robert DPM Unavailable [phone] Allergies Active Allergy Reactions Criticality Noted Date Comments Penicillins Anaphylaxis High 04/13/2015 Tolerated cefazolin in 2019 Tomato Rash High 08/28/2019 Medications nitroglycerin (NITROSTAT) 0.[address] 1 tablet (0.4 mg total) under the tongue every 5 (five) minutes as needed for chest pain May repeat dose q 5 min, up to 3 doses total 30 tablet 2 1 Active omeprazole (PriLOSEC) 20 mg capsule Take 1 capsule (20 mg total) by mouth daily Active cyanocobalamin (Vitamin B-12) 1,000 mcg tabletIndicati ons:Prevention of Vitamin B12 Deficiency Take 1 tablet (1,000 mcg total) by mouth daily Active docusate sodium (COLACE) 100 mg capsuleIndicat ions:constipat ion Take 1 capsule (100 mg total) by mouth 2 (two) times a day Active acetaminophen (TYLENOL) 500 mg tablet Take 1 tablet (500 mg total) by mouth every 6 (six) hours as needed for pain Active citalopram (CeleXA) 40 mg tablet TAKE 1 TABLET EVERY NIGHT 90 tablet 3 4 Active amLODIPine (NORVASC) 10 mg tablet Take 1 tablet by mouth once daily 90 tablet 3 4 Active apixaban (Eliquis) 5 mg tablet Take 1 tablet by mouth twice daily 180 tablet 3 4 Active ciclopirox (LOPROX) 0.77 % cream APPLY TO THE AFFECTED AREA(S) OF FEET TWICE DAILY 4 Active traZODone (DESYREL) 50 mg tablet Take 1 tablet by mouth nightly 30 tablet 3 5 Active levETIRAcetam (KEPPRA) 500 mg tablet Take 2 tablets (1,000 mg total) by mouth 2 (two) times a day 360 tablet 5 025 Active rosuvastatin (CRESTOR) 5 mg tablet Take 1 tablet by mouth once daily 90 tablet 3 5 Active torsemide (DEMADEX) 20 mg tablet Take 1 tablet by mouth twice daily 180 tablet 3 5 Active losartan (COZAAR) 50 mg tablet Take 1 tablet by mouth twice daily 180 tablet 3 5 Active benzonatate (TESSALON) 100 mg capsuleIndicat ions:Cough Take 1 capsule (100 mg total) by mouth 3 (three) times a day as needed for cough 42 capsule 5 Active torsemide (DEMADEX) 20 mg tablet Take 1 tablet by mouth twice daily 180 tablet 5 025 Discontinued losartan (COZAAR) 50 mg tablet Take 1 tablet by mouth twice daily 180 tablet 5 025 Discontinued Active Problems Problem Noted Date Diagnosed Date Acute osteomyelitis of left ankle or foot 2023 Ulcer of left heel, with necrosis of bone 2023 Cellulitis of left lower extremity 05/07/2023 Epistaxis 11/15/2022 Personal history of DVT (deep vein thrombosis) 1 Overview (09/03/2022): Assessment & Plan (09/03/2022 3:43 PM CDT): will discuss w Dr. 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 Overview (06/16/2022): Added automatically from request for surgery [id number] Lymphedema of both lower extremities 07/22/2021 Hypothyroidism 11/17/2020 Anemia 11/17/2020 Penetrating foot wound, left, sequela 10/12/2020 (HFpEF) heart failure with preserved ejection fr action 06/25/2020 Other pulmonary embolism without acute cor pulmo nale 04/05/2020 Obesity (BMI 35.0-39.9 without comorbidity) 12/07 Borderline diabetes 10/13/2019 S/P mitral valve repair 08/26/2019 Assessment & Plan (09/11/2019 1:09 PM CUSTOMER SERVICE ADMINISTRATOR): S/p MV repair and TV repair on 08/26/2019 Continue post operative care Increase activity as tolerated- PT/OT following S/p RD/DCCV- now in NSR- will continue amiodarone. Ongoing Rehab planning ([facility])--insurance approval pending Assessment & Plan (09/04/2019 4:46 PM CDT): Pod 0 Continue ASA IV lasix 40mg po x 1 today No BB due to baseline bradycardia No wires and no chest tubes Echo 09/02: mitral ring with low gradient (MG of 2), normal TV Assessment & Plan (08/30/2019 3:37 PM CDT): S/p MV repair and TV repair. Post op care to include: DVT prophylaxis: SCDs, SQH Bowel regimen: Docusate/Colace/ mirlax, may need suppositories/enema Diet: cardiac diet Glucose control: per ICU protocol Assessment & Plan (08/30/2019 2:53 AM CDT): S/p MV repair and TV repair. Post op care to include: DVT prophylaxis: SCDs, SQH Bowel regimen: Docusate/Colace/ mirlax, may need suppositories/enema Diet: NPO Glucose control: per ICU protocol Assessment & Plan (08/29/2019 3:23 AM CDT): S/p MV repair and TV repair. Post op care to include: DVT prophylaxis: SCDs, SQH Bowel regimen: Docusate/Colace/ mirlax, may need suppositories/enema Diet: NPO Glucose control: per ICU protocol PT: To evaluate and treat when pt stable Periop ABX Assessment & Plan (08/28/2019 5:16 AM CDT): S/p MV repair and TV repair. Post op care to include: DVT prophylaxis: SCDs, SQH GI prophylaxis : QD H2 mayra while intubated Bowel regimen: Docusate/Colace/ mirlax Diet: NPO Glucose control: per ICU protocol PT: To evaluate and treat when pt stable Periop ABX Assessment & Plan (08/27/2019 12:14 AM CDT): S/p MV repair and TV repair. Post op care to include: DVT prophylaxis: SCDs, SQH POD1 GI prophylaxis : QD H2 mayra while intubated Bowel regimen: Docusate/Colace/ mirlax Diet: NPO Glucose control: per ICU protocol PT: To evaluate and treat when pt stable Periop ABX Assessment & Plan (08/26/2019 5:04 PM CDT): S/p MV repair and TV repair. Post op care to include: DVT prophylaxis: SCDs, SQH POD1 GI prophylaxis : QD H2 mayra while intubated Bowel regimen: Docusate/Colace/ mirlax Diet: NPO Glucose control: per ICU protocol PT: To evaluate and treat when pt stable Periop ABX S/P tricuspid valve repair 08/26/2019 Assessment & Plan (09/05/2019 1:06 PM CDT): See plan for mitral repair Assessment & Plan (08/31/2019 2:04 PM CDT): See plan for mitral repair Assessment & Plan (08/30/2019 3:38 PM CDT): TV repair 08/26. No post CPB RD valvular abnorm Assessment & Plan (08/30/2019 2:53 AM CDT): TV repair 08/26. No post CPB RD valvular abnorm Assessment & Plan (08/29/2019 3:23 AM CDT): TV repair 08/26. No post CPB RD valvular abnorm Assessment & Plan (08/28/2019 5:16 AM CDT): TV repair 08/26. No post CPB RD valvular abnorm Assessment & Plan (08/27/2019 12:14 AM CDT): TV repair 08/26. No post CPB RD valvular abnorm Assessment & Plan (08/26/2019 5:08 PM CDT): TV repair 08/26. No post CPB RD valvular abnorm Seizure 11/18/2018 Assessment & Plan (09/09/2019 10:48 AM CUSTOMER SERVICE ADMINISTRATOR): Continue BID keppra Assessment & Plan (08/31/2019 2:02 PM CDT): Continue keppra Assessment & Plan (08/30/2019 3:34 PM CDT): Hx of sz on home keppra. Reported well controlled with last sz being years ago -cont 500mg keppra BID Assessment & Plan (08/30/2019 2:53 AM CDT): Hx of sz on home keppra. Reported well controlled with last sz being years ago -cont 500mg keppra BID Assessment & Plan (08/28/2019 5:19 AM CDT): Hx of sz on home keppra. Reported well controlled with last sz being years ago -cont 500mg keppra BID Assessment & Plan (08/28/2019 5:15 AM CDT): Hx of sz on home keppra. Reported well controlled with last sz being years ago -cont 500mg keppra BID Assessment & Plan (08/27/2019 12:11 AM CDT): Hx of sz on home keppra. Reported well controlled with last sz being years ago -cont 500mg keppra BID Assessment & Plan (08/26/2019 5:05 PM CDT): Hx of sz on home keppra. Reported well controlled with last sz being years ago -resume 500mg keppra BID Obstructive sleep apnea syndrome 07/03/2017 Hypertension 03/21/2017 Charcot's joint of foot 11/01/2016 Depressed mood 05/26/2015 Memory impairment 04/13/2015 Resolved Problems Problem Noted Date Diagnosed Date Resolved Date Umbilical hernia without obs truction and without gangrene 06/26/2024 08/05/2024 Ulcer of left foot 04/20/2020 0 Atrial fibrillation 09/02/2019 12/02/19 20 Assessment & Plan (09/11/2019 1:11 PM CUSTOMER SERVICE ADMINISTRATOR): RD/DCCV 09/05/2019- converted to NSR and continues in NSR per ATC telemetry Continue po amiodarone--receiving daily EKG for QTc Has received two doses of 5 mg at present Last INR check = 1.94 Goal INR 2-3 Assessment & Plan (09/04/2019 4:39 PM CDT): Atrial fibrillation/flutter since 09/03 around 6am with slow ventricular rate ~ 55-60 -> today (09/04) remains aflutter in the 70s -give amio bolus followed by amio infusion -start heparin drip -rd with dccv in am -> ordered Abdominal distension 09/02/2019 05/05/2 020 Assessment & Plan (09/11/2019 1:12 PM CUSTOMER SERVICE ADMINISTRATOR): KUB 09/04 showed improving ileus- + BM last night and this morning- abd soft Goal for daily BM--had two yesterday Tolerating diet Continue bowel regimen Assessment & Plan (09/04/2019 4:38 PM CDT): Abdominal xray with large amount of bowel gas concerning for severe ileus however the patient has bowel sounds and is passing gas/liquid stools. After an enema the patient passed some hard stool and had resolution of his abdominal pain. 09/03 D/w CTS Fellow Dr Lanza- given passing bowel movements and resolution of pain plan for repeat enema this evening and follow clinical course 09/04 feels better, stomach still distended but improved per Dr. Lanza, ok for clear liquids, KUB somewhat improved,mineral oil enema today Ileus 08/31/2019 09/08/2019 Assessment & Plan (09/06/2019 10:38 AM CDT): Last KUB showed improving ileus BM x 2 yesterday Advance diet as tolerated Bowel regimen Assessment & Plan (09/04/2019 4:43 PM CDT): Dilated bowel seen on CXR 08/31 -> persistent abdominal distension CT abdomen 09/03: Gaseous distention of the transverse and ascending colon, which may be secondary to ileus. The small bowel is normal in caliber. Had loose stools overnight after lactulose KUB this morning (09/04) shows continued improvement of gaseous distention of small bowel and large bowel compatible with improving ileus. Mineral oil enema today Minimize oxycodone Acute renal injury 08/30/2019 9 Assessment & Plan (09/11/2019 1:11 PM CUSTOMER SERVICE ADMINISTRATOR): Baseline creat on admission 1.04- peak at 3.42, has been decreasing Last night creatinine = 1.78, which is slightly up from previous 1.69 Daily BMPs, while inpatient Receiving oral lasix 40 mg po twice daily, at present Continue to monitor I &O, daily weights Assessment & Plan (09/04/2019 4:38 PM CDT): Cr continues to downtrending Continue diuresis with IV lasix as renal function allows Monitor UOP Recent Lab Results: Recent Labs Lab Units 09/03/19222109/02/19222709/01/19 2111 SODIUM mmol/L 138 141 138 POTASSIUM PLASMA mmol/L 3.8 3.7 3.6 CHLORIDE mmol/L 98 100 100 CO2 mmol/L 30 32 29 BUN SERUM mg/dL 49* 52* 59* CREATININE mg/dL 1.81* 2.10* 2.16* GLUCOSE mg/dL 123 125 133 CALCIUM mg/dL 9.4 9.4 9.1 Assessment & Plan (08/30/2019 3:39 PM CDT): Baseline Cr is ~1. Most likely cardiorenal - will transition to Lasix 40 mg TID (need to order PM dose) - FBG -500. -will cont dobutamine in setting of improvement of Cr Assessment & Plan (08/30/2019 2:55 AM CDT): Baseline Cr is ~1. Most likely cardiorenal vs. atn vs. Pre renal. - Low UO overnight. Spot dosing with lasix with some response. - FBG -500. - less likely to be pre renal given his overall positivity during his hospital stay. Acute respiratory failure 08/26/2019 Assessment & Plan (09/02/2019 2:27 PM CDT): cxr today Continue IS Continue Lasix to 40 TID On room air Assessment & Plan (08/30/2019 3:34 PM CDT): Post-procedural short-term ventilatory support with reversal prior to successful extubation on 08/26. Hx of NIKOLAS with home NPPV. -CXR post extubation noted R pneumo, cont to sincere. Stable. -NPPV, PEEP 10 overnight, NC during the day Assessment & Plan (08/30/2019 2:52 AM CDT): Post-procedural short-term ventilatory support with reversal prior to successful extubation on 08/26. Hx of NIKOLAS with home NPPV. -CXR post extubation noted R pneumo, cont to sincere. Stable. -NPPV, PEEP 10 overnight, NC during the day Assessment & Plan (08/29/2019 3:22 AM CDT): Post-procedural short-term ventilatory support with reversal prior to successful extubation on 08/26. Hx of NIKOLAS with home NPPV. -CXR post extubation noted R pneumo, cont to sincere -NPPV, PEEP 10 overnight, NC during the day Assessment & Plan (08/28/2019 5:15 AM CDT): Post-procedural short-term ventilatory support with reversal prior to successful extubation on 08/26. Hx of NIKOLAS with home NPPV. -CXR post extubation noted R pneumo, cont to sincere -NPPV, PEEP 10 Assessment & Plan (08/27/2019 4:39 AM CDT): Post-procedural short-term ventilatory support with reversal prior to successful extubation on 08/26. Hx of NIKOLAS with home NPPV. -CXR post extubation noted R pneumo, cont to sincere -NPPV, PEEP 10 -ABG, lactate improving Assessment & Plan (08/26/2019 4:39 PM CDT): Post-procedural short-term ventilatory support with anticipated extubation. Arrives on minimal vent settings. CXR: bilat interstitial edema and bilat atelectasis and LLL effusion. Relaxed and not reversed in OR. Sedated on propofol. Hx of NIKOLAS with home NPPV. -check TOF (02/06) -Glycopyrrolate 200mcg IVP then 1mg neostigmine now for reversal -wean sedation to off -PSV 7.5/40% X30min with intent to extubate -NPPV tonight Acute post-operative pain 08/26/2019 Assessment & Plan (09/02/2019 2:30 PM CDT): Tylenol first line Limit narcotics as possible given abdominal distension Assessment & Plan (08/30/2019 3:34 PM CDT): Anticipated post CTSX via sternotomy. Extubated successfully on 08/26 -scheduled tylenol and PRN oxy and dilaudid for pain control Assessment & Plan (08/30/2019 2:52 AM CDT): Anticipated post CTSX via sternotomy. Extubated successfully on 08/26 -scheduled tylenol and PRN oxy and dilaudid for pain control Assessment & Plan (08/29/2019 3:23 AM CDT): Anticipated post CTSX via sternotomy. Extubated successfully on 08/26 -scheduled tylenol and PRN oxy and dilaudid for pain control Assessment & Plan (08/28/2019 5:16 AM CDT): Anticipated post CTSX via sternotomy. Extubated successfully on 08/26 -scheduled tylenol and PRN oxy and dilaudid for pain control Assessment & Plan (08/27/2019 12:14 AM CDT): Anticipated post CTSX via sternotomy. Extubated successfully on 08/26 -scheduled tylenol and PRN oxy and dilaudid for pain control Assessment & Plan (08/26/2019 4:59 PM CDT): Anticipated post CTSX via sternotomy. Currently intubated and sedated -fentanyl PRN while intubated -once extubated and passes bedside swallow, start scheduled tylenol and PRN oxy and dilaudid for pain control Myocardial stunning 08/26/2019 09/05/20 19 Assessment & Plan (09/04/2019 4:44 PM CDT): Echo 09/02: LA is normal. Mild RV cavity enlargement and RVF appears preserved. LV cavity size is normal. Normal LV wall thickness/mass and hyperdynamic LVF; EF= 73%. There is likely a mitral ring with a low gradient. Normal Inferior vena cava. Normal aorta. Aortic and tricuspud valves were difficult to evaluate, Assessment & Plan (08/30/2019 3:38 PM CDT): Anticipated post CPB. Post CPB RD on ON SITE COORDINATOR 3mcg/kg/min reported as minimal residual MR and no TR, normal BiV function. EPW placed and set AAI 80. CI > 3 on arrival to ICU with PAP 2/3 systemic -ON SITE COORDINATOR @ 3, no wean overnight in setting of cardiorenal syndrome -EPW set VVI backup 60 Assessment & Plan (08/30/2019 2:52 AM CDT): Anticipated post CPB. Post CPB RD on ON SITE COORDINATOR 3mcg/kg/min reported as minimal residual MR and no TR, normal BiV function. EPW placed and set AAI 80. CI > 3 on arrival to ICU with PAP 2/3 systemic -ON SITE COORDINATOR @ 2, no wean currently -EPW set AAI 90 - consider ON SITE COORDINATOR wean today with normal SCVO2. Assessment & Plan (08/29/2019 3:24 AM CDT): Anticipated post CPB. Post CPB RD on ON SITE COORDINATOR 3mcg/kg/min reported as minimal residual MR and no TR, normal BiV function. EPW placed and set AAI 80. CI > 3 on arrival to ICU with PAP 2/3 systemic -ON SITE COORDINATOR @ 2, no wean currently -EPW set AAI 90 Assessment & Plan (08/28/2019 2:49 AM CDT): Anticipated post CPB. Post CPB RD on ON SITE COORDINATOR 3mcg/kg/min reported as minimal residual MR and no TR, normal BiV function. EPW placed and set AAI 80. CI > 3 on arrival to ICU with PAP 2/3 systemic -ON SITE COORDINATOR @ 3, recheck SVO2 in AM -EPW set AAI 90 Assessment & Plan (08/27/2019 12:14 AM CDT): Anticipated post CPB. Post CPB RD on ON SITE COORDINATOR 3mcg/kg/min reported as minimal residual MR and no TR, normal BiV function. EPW placed and set AAI 80. CI > 3 on arrival to ICU with PAP 2/3 systemic -start ON SITE COORDINATOR wean Q4hr by 1mcg/kg/min for CI > 2.2 starting at 18:00 (post extubation) -EPW set AAI 90 Assessment & Plan (08/26/2019 5:02 PM CDT): Anticipated post CPB. Post CPB RD on ON SITE COORDINATOR 3mcg/kg/min reported as minimal residual MR and no TR, normal BiV function. EPW placed and set AAI 80. CI > 3 on arrival to ICU with PAP 2/3 systemic -start ON SITE COORDINATOR wean Q4hr by 1mcg/kg/min for CI > 2.2 starting at 18:00 (post extubation) -EPW set AAI 80 Metabolic acidosis 08/26/2019 9 Assessment & Plan (08/30/2019 3:39 PM CDT): Non-gap. Likely needs more resuscitation. Interop recieved: 1L crystalloid, 450 cell saver, and 2 plts. Resolved. Assessment & Plan (08/30/2019 2:52 AM CDT): Non-gap. Likely needs more resuscitation. Interop recieved: 1L crystalloid, 450 cell saver, and 2 plts. Resolved. Assessment & Plan (08/27/2019 4:39 AM CDT): Non-gap. Likely needs more resuscitation. Interop recieved: 1L crystalloid, 450 cell saver, and 2 plts. -250ml albumin x2 -ABG and lactate improved Assessment & Plan (08/26/2019 5:03 PM CDT): Non-gap. Likely needs more resuscitation. Interop recieved: 1L crystalloid, 450 cell saver, and 2 plts. 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 08/26/2019 Overview (07/10/2019): Added automatically from request for surgery [id number] Eczema 10/18/2017 03/10/2019 Pulmonary hypertension 06/13/201709/09 Mitral valve insufficiency 06/11/2017 1 Thyroid nodule 05/21/2017 09/09/2019 Localized swelling of lower leg 05/16/2017 12/02/2019 [place] hump 03/21/2017 12/02/2019 Chronic cough 02/07/2017 03/10/2019 Lower urinary tract symptoms 02/07/2017 09/09/2019 Borderline diabetes mellitus 02/07/2017 09/09/2019 Altered level of consciousness 11/25/2014 09/05/2019 Overview (02/09/2017): Transient alteration of awareness Headache 11/25/2014 03/10/2019 Overview (02/09/2017): Worsening headaches Encounters Date Type Department Care Team Description 04/14/2025 Telephone [facility] Cardiology [address] [place] [address] [place] [address] Ofelia Reza MD 04/14/2025 Telephone [facility] [address] [place] [address] [address] [place] [phone] Reagan Wu MD 04/07/2025 Telephone [facility] [address] [place] [address] [address] [place] [phone] Reagan Wu MD 04/02/2025 2:30 PM CDT Office Visit 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; Chronic heart failure with preserved ejection fraction (HCC) 03/31/2025 Telephone [facility] [address] [place] [address] [address] [place] [phone] Reagan Wu MD Labs Only 03/24/2025 Telephone [facility] [address] [place] [address] [address] [place] [phone] Reagan Wu MD 02/24/2025 1:20 PM CDT Office Visit [facility] [address] [phone] Reagan Wu MD Medicare annual wellness visit, subsequent (Primary Dx); Chronic heart failure with preserved ejection fraction (HCC); Borderline diabetes; Depressed mood 02/24/2025 Results Follow-Up [facility] [address] [place] [address] Reagan Wu MD Basic metabolic panel, POCT hemoglobin A1c 02/16/2025 Telephone [facility] Epilepsy [address] [place] [address] [place] [address] Jagdish Hopkins MD PhD from Last 3 Months Immunizations Immunization Administration Dates Next Due Influenza, Quadrivalent, Hig h Dose, Preservative Free, Intrr 08/17/2023,07/11/2022,08/18/2021,09/27 Influenza, Quadrivalent, Spl it, Preservative Free, Intramuscular 11/18/2013 Influenza, Trivalent, Adjuva nted, Intramuscular 08/02/2018 Influenza, Trivalent, High D ose, Split, Preservative Free, Intramuscular 07/15/2024,07/24/2019,09/26/2017,08/29,08/05/2016,09/21/2015 Pneumococcal Conjugate PCV 13 11/01/2016 Pneumococcal Conjugate Pcv20 11/11/2023 Pneumococcal Polysaccharide PPV23 10/05/2015 RSV Vaccine, Pref, Recombina nt, Subunit, Adjuvanted, PF, IM (Arexvy) 11/11/2023 Tdap 07/14/2015 ZOSTER Recombinant 03/08/2023,12/08/2022 Surgical History Surgery Date Site/Laterality Comments RI UNLISTED PROCEDURE ABDOME N PERITONEUM & OMENTUM Hernia Repair - (Added by TW Conv) INGUINAL HERNIA REPAIR TONSILLECTOMY MITRAL VALVE SURGERY with tricuspid surgery also MANDIBLE SURGERY bone has been removed and replaced FOOT SURGERY Left foot biopsy Medical History Medical History Date Comments Hypertension Hypertension Hx Other Medical Hyperlipidemia Hx Other Medical Thyroid issues Obstructive sleep apnea NIKOLAS on C PAP - (Added by TW Conv) Anxiety disorder Anxiety - (Adde d by TW Conv) Personal history of other di seases of the circulatory system History of hypertension - (A dded by TW Conv) Personal history of other di seases of urinary system History of kidney disease - (Added by TW Conv) Personal history of urinary infection History of urinary tract infection - (Added by TW Conv) Heart murmur Stroke (HCC) CHF (congestive heart failure) (HCC) Arrhythmia atrial fibrillat ion Coronary artery disease Hyperlipidemia Thyroid disease Depression Seizures (HCC) Mitral valve insufficiency 06/11/2017 IVONE (acute kidney injury) 08/30/2019 Lower urinary tract symptoms 02/07/2017 Borderline diabetes mellitus 02/07/2017 Pulmonary hypertension (HCC) 06/13/2017 Thyroid nodule 05/21/2017 GERD (gastroesophageal reflu x disease) Oxygen dependent Patient uses 2. 5L/NC of O2 as needed Family History Medical History Relation Name Comments Coronary artery disease Father Fami ly history of coronary artery disease - (Added by TW Conv) Heart attack Father Family history of heart attack - (Added by TW Conv) Stroke Father Stroke; Cause o f : Stroke/Family history of cerebrovascular accident (CVA) - (Added by TW Conv) Sudden Cardiac Father Family history of sudden cardiac - (Added by TW Conv) Cancer Mother Cancer; Cause o f : Cancer/Family history of malignant neoplasm - (Added by TW Conv) Relation Name Status Comments Father Mother Social History Tobacco Use Types Packs/Day Years Used Date Smoking Tobacco: Never Smokeless Tobacco: Never Tobacco Cessation:Counseling Given: Not Answered Alcohol Use Standard Drinks/Week Comments Not Currently [...] on file Legal Sex Male 2:21 AM CUSTOMER SERVICE ADMINISTRATOR Gender Identity Not on file Sexual Orientation Not on file Obstetrics History Last Filed Vital Signs Vital Sign Reading Time Taken Comments Blood Pressure 118/60 04/02/2025 2:25 PM CDT Pulse 62 04/02/2025 2:25 PM CDT Temperature 36.2 C (97.1 F) 07/23/2024 10:22 AM CDT Respiratory Rate 16 07/04/2024 11:50 AM CDT Oxygen Saturation 96% 04/02/2025 2:25 PM CDT Inhaled Oxygen Concentration - - Weight 118.4 kg (261 lb) 04/02/2025 2:25 PM CDT Height 182.9 cm (6') 04/02/2025 2:25 PM CDT Body Mass Index 35.4 04/02/2025 2:25 PM CDT Plan of Treatment Health Maintenance Due Date Last Done Comments Hepatitis B Screening 1958 Covid-19 Vaccine (2023-2 5 season) 2025 07/15/2024, 08/17/2023, 11/21/2022, Additional history exists DTaP/Tdap/Td Vaccine (2 - Td or Tdap) 07/14/2025 07/14/2015 Depression Screening 02/24/2026 02/24/2025, 11/18/2024, 03/12/2024, Additional history exists Fall Risk Assessment 02/24/2026 02/24/2025, 07/04/2024, 04/15/2024, Additional history exists Well Visit 65+ 02/24/2026 02/24/2025, 03/07/2023 Zoster Vaccine Completed 03/08/2023, 12/08/2022 Pneumococcal vaccine 65+ Completed 024, 11/01/2016, 10/05/2015 Influenza Vaccine Completed 07/15/2024, , 07/11/2022, Additional history exists Medical Devices Implanted Type Area Unemployment Insurance Director Device Identifier Shelf Expiration Date Model / Serial / Lot Daig Willie[employer] [id number] Angio-Seal Evolution 6fr .035in Guidewire Bypass Tube Suture - [id number] Implanted:Qty: 1 on 07/01/2019 by Hemal Amezcua MD at [facility] [employer] [id number] / / Medtronic Card Vasc Surgery [id number] Cg Future Od32 Mm Eyelet Design Cross Sectional Profile Alloy Stiffener Band Annuloplasty 638 - [id number] - [id number] Implanted:Qty: 1 on 08/26/2019 by Gracie Parker MD at [facility] N/A: Heart Medtronic Inc 04/21/2024 [id number] / [id number] / Description:Mitral position Medtronic Inc [id number] Tri-Ad 2 Raul 34mm Tricuspid Valve Band Annuloplasty Model 900sfc - [id number] - [id number] Implanted:Qty: 1 on 08/26/2019 by Gracie Parker MD at [facility] N/A: Heart Medtronic Inc 07/03/2023 [id number] / [id number] / Davol Inc/C R Bard Ventralex St Sepra Sorbaflex 2.5in [place] Open Bioresorbable [id number] - [id number] Implanted:Qty: 1 on 07/04/2024 by Florencio Irvin MD at [facility] N/A: Umbilical Davol Inc/C R Bard 01/02/2025 [id number] / / [id number] Procedures Procedure Name Priority Date/Time Associated Diagnosis Comments POCT HEMOGLOBIN A1C Routine 02/24/2025 2 :00 PM CDT Borderline diabetes BASIC METABOLIC PANEL Routine 02/24/2025 1:38 PM CDT Chronic heart failure with preserved ejection fraction (HCC) from Last 3 Months Results * POCT hemoglobin A1c (02/24/2025 2:00 PM CDT) Hemoglobin A1C, POC 6.0 4.0 - 5.6 % Capillary blood 02/24/2025 2 :00 PM CDT Reagan Wu MD POINT OF CARE TEST ORD ERABLES Final Result * (ABNORMAL) Basic metabolic panel (02/24/2025 1:38 PM CDT) Glucose 104 74 - 200 mg/dL [facility] BUN 28(H) 18 - 23 mg/dL [facility] Creatinine 1.1 0.7 - 1.3 mg/dL [facility] BUN/Creat Ratio 25 Ratio [facility] eGFR 61 mL/min/1.7 3m2 [facility] Calcium 9.8 8.8 - 10.2 mg/dL [facility] Sodium 136 135 - 145 mEq/L [facility] Potassium 4.8 3.5 - 5.1 mEq/L [facility] Chloride 96(L) 98 - 107 mEq/L [facility] CO2 33.9(H) 22.0 - 32.0 mEq/L [facility] Anion Gap 6 3 - 12 mEq/L [facility] Blood 02/24/2025 1:38 PM CDT 02/24/2025 1:48 PM CDT Reagan Wu MD LAB BLOOD ORDERABLES F inal Result [facility] [address] [place] [address] from Last 3 Months Insurance HUMANA CHOICE MEDICARE PPO IDPA HUMANA CHOICE MEDICARE PPO HUMANA CHOICE MEDICARE PPO HUMANA CHOICE MEDICARE PPO HUMANA CHOICE MEDICARE PPO IDPA Advance Directives For more information, please contact: [phone] * Full Code (Latest Code Status on File) Date Activated Date Inactivated Comments 04/18/2024 2:42 PM 04/18/2024 7:49 PM * Full Code Date Activated Date Inactivated Comments 01/16/2024 2:39 PM 01/16/2024 7:24 PM * Full Code Date Activated Date Inactivated Comments 01/16/2024 2:38 PM 01/16/2024 2:39 PM * Full Code Date Activated Date Inactivated Comments 05/07/2023 3:51 PM 05/10/2023 9:41 PM * Full Code Date Activated Date Inactivated Comments 08/26/2019 3:28 PM 09/11/2019 8:48 PM Care Teams Piano Accompanist Relationship Specialty Start Date End Date Reagan Wu MD PCP - General 05/31/17 Onur Ku MD Referring Physician Cardiology 05/14/19 Leeann Robert, ARISM [address] [place] [address] Consulting Physician Foot and Ankle Surg 06/29/22
--- OUTSIDE RECORDS SUMMARY | 2025-04-14 16:58 | XMS_ITS | Encounter Summary ---
Author Organization [facility] Address [address] [place] [address] Phone Care Team Providers Care Vac Press Operator Name Role Phone Reagan Wu MD Primary Care Provider Reagan Wu MD Primary Care Provider Onur Ku MD Unavailable [phone] Leeann Robert DPM Unavailable [phone] Encounter Details Date Type Department Care Team (Latest Contact Info) Description 05/30/2017 Orders Only [facility] CONVERSION Scanning, Provider Social History Tobacco Use Types Packs/Day Years Used Date Smoking Tobacco: Never Alcohol Use Standard Drinks/Week Comments Yes 0 (1 standard drink = 0.6 oz pur e alcohol) Sex and Gender Information Value Date Recorded Sex Assigned at Not on file Legal Sex 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 Gender Identity Not on file Sexual Orientation Not on file documented as of this encounter Plan of Treatment Not on file documented as of this encounter Procedures Procedure Name Priority Date/Time Associated Diagnosis Comments VASCULAR LABORATORY REPORT 05/30/2017 7:58 PM CDT documented in this encounter Results * VASCULAR LABORATORY REPORT (05/30/2017 7:58 PM CDT) Anatomical Region Laterality Modality Ultrasound us Provider Scanning CV VASCULAR PROCEDURES Final R esult documented in this encounter Visit Diagnoses Not on filedocumented in this encounter Additional Health Concerns Infection Onset Date Last Indicated Resolved Time MDR gram neg/ESBL Comment:Multiple C&S since 2021 negative for MDR gram neg/ESBL left foot. 06/29/2022 06/29/2022 06/27/2024 11:27 AM CDT documented as of this encounter Care Teams Vac Press Operator Relationship Specialty Start Date End Date Reagan Wu MD PCP - General 05/18/17 05/30/17 Reagan Wu MD PCP - General 05/31/17 Onur Ku MD Referring Physician Cardiology 05/14/19 Leeann Robert DPRayray [address] [place] [address] Consulting Physician Foot and Ankle Surg 06/29/22 documented as of this encounter
--- OUTSIDE RECORDS SUMMARY | 2025-04-14 16:58 | XMS_ITS | Encounter Summary ---
Author Organization [facility] Address [address] [place] [address] Phone Care Team Providers Care Cereal Popper Name Role Phone Reagan Wu MD Primary Care Provider Onur Ku MD Unavailable [phone] Leeann Robert DPM Unavailable [phone] Encounter Details Date Type Department Care Team (Late st Contact Info) Description 02/24/2025 Results Follow-Up [facility] [address] [place] [address] Reagan Wu MD [address] [address] Basic metabolic panel, POCT hemoglobin A1c Social History Tobacco Use Types Packs/Day Years [...] and Family Once a week 09/01/2019 Attends Christian Services 1 to 4 times per year [...] on file 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
--- OUTSIDE RECORDS SUMMARY | 2025-04-14 16:58 | XMS_ITS | Encounter Summary ---
Author Organization [facility] Address [address] [place] [address] Phone Care Team Providers Care Pastry Chef Name Role Phone Reagan Wu MD Primary Care Provider Onur Ku MD Unavailable [phone] Leeann Robert DPM Unavailable [phone] Encounter Details Date Type Department Care Team (Latest Contact Info) Description 01/08/2020 Orders Only [facility] Scanning, Provider [...] and Family Once a week 09/01/2019 Attends Faith Services 1 to 4 times per year 09/01/2019 Active Member of Clubs or Organizations No 09/01/2019 Attends Club or Organization Meetings Never 09/01/2019 Marital Status 09/01/2019 Overall Financial Resource Strain (CARDIA) Answe r Date Recorded Difficulty of Paying Living Expenses Not very ch[address] 09/01/2019 PHQ-2 Answer Date Recorded PHQ-2 Score 21 12/31/2019 Hunger Vital Sign Answer Date Recorded Worried [...] on file Legal Sex Male 2:21 AM TEXTILE EXAMINER Gender Identity Not on file Sexual Orientation Not on file documented as of this encounter Plan of Treatment Not on file documented as of this encounter Procedures Procedure Name Priority Date/Time Associated Diagnosis Comments CARDIOLOGY DOCUMENT SCAN 01/08/2020 documented in this encounter Results * SCAN - CARDIOLOGY (01/08/2020) Anatomical Region Laterality Modality Other us Provider Scanning CV CARDIAC SERVICES PROCEDURES Final Result documented in this encounter Visit Diagnoses Not on filedocumented in this encounter Additional Health Concerns Infection Onset Date Last Indicated Resolved Time MDR gram neg/ESBL Comment:Multiple C&S since 2021 negative for MDR gram neg/ESBL left foot. 06/29/2022 06/29/2022 06/27/2024 11:27 AM CDT documented as of this encounter Care Teams Pastry Chef Relationship Specialty Start Date End Date Reagan Wu MD PCP - General 05/31/17 Onur Ku MD Referring Physician Cardiology 05/14/19 Leeann Robert DPM [address] [place] [address] Consulting Physician Foot and Ankle Surg 06/29/22 documented as of this encounter
--- OUTSIDE RECORDS SUMMARY | 2025-04-14 16:58 | XMS_ITS | Encounter Summary ---
Author Organization [facility] Address [address] [place] [address] Phone Care Team Providers Care Skewer Up Name Role Phone Reagan Wu MD Primary Care Provider Onur Ku MD Unavailable [phone] Leeann Robert DPRayray Unavailable [phone] Reason for Visit * Reason Comments Med Refill Encounter Details Date Type Department Care Team (Late st Contact Info) Description 04/10/2024 Telephone [facility] Epilepsy [address] [facility] 6th [place] [address] [place] [address] Jagdish Hopkins MD PhD [address] [place] [address] Med Refill Social History Tobacco Use Types Packs/Day Years [...] and Family Once a week 09/01/2019 Attends Anabaptism Services 1 to 4 times per year 09/01/2019 Active Member of Clubs or Organizations No 09/01/2019 Attends Club or Organization Meetings Never 09/01/2019 Marital Status 09/01/2019 AUDIT-C Answer Date Recorded Q1: How often do you have a drink containing alcohol? Never 01/10/2024 Q2: How many drinks containi ng alcohol do you have on a typical day when you are drinking? Patient does not drink 4 Q3: How often do you have si x or more drinks on one occasion? Never 01/10/2024 Overall Financial Resource Strain (CARDIA) Answe r Date Recorded Difficulty of Paying Living Expenses Not very ch[address] 09/01/2019 PHQ-2 Answer Date Recorded PHQ-2 Total Score (If total score is 3 or more points, staff should administer the PHQ-9) 0 03/12/2024 Hunger Vital Sign Answer Date Recorded Worried [...] making you feel afraid or unsafe? 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 Gender Identity Not on file Sexual Orientation Not on file documented as of this encounter Ordered Prescriptions Prescription Sig Dispense Quantity Refills Last Filled Start Date End Date levETIRAcetam (KEPPRA) 500 mg tablet Take 2 tablets by mouth twice daily 360 tablet 04/11/2024 4 documented in this encounter Plan of Treatment Not on file documented as of this encounter Visit Diagnoses Not on filedocumented in this encounter Discontinued Medications Medication Sig Discontinue Reason Start Date End Da te levETIRAcetam (KEPPRA) 500 mg tablet Take 2 tablets (1,000 mg total) by mouth 2 (two) times a day 01/19/2023 04/11/2024 documented as of this encounter Additional Health Concerns Infection Onset Date Last Indicated Resolved Time MDR gram neg/ESBL Comment:Multiple C&S since 2021 negative for MDR gram neg/ESBL left foot. 06/29/2022 06/29/2022 06/27/2024 11:27 AM CDT documented as of this encounter Care Teams Skewer Up Relationship Specialty Start Date End Date Reagan Wu MD PCP - General 05/31/17 Onur Ku MD Referring Physician Cardiology 05/14/19 Leeann Robert DPM [address] [place] [address] Consulting Physician Foot and Ankle Surg 06/29/22 documented as of this encounter
--- OUTSIDE RECORDS SUMMARY | 2025-04-14 16:58 | XMS_ITS | Referral Summary ---
Author Organization [facility] Address [address] [place] [address] Care Team Providers Care Junior Architect Name Role Phone Reagan Wu MD Primary Care Provider Onur Ku MD Unavailable [phone] Leeann Robert DPM Unavailable [phone] Encounters Date Type Department Care Team Description 04/14/2025 Telephone [facility] Cardiology [address] [facility] 8th [place] [address] [place] [phone] Ofelia Reza MD 04/14/2025 Telephone [facility] [address] [place] [address] [address] [place] [phone] Reagan Wu MD 04/07/2025 Telephone [facility] [address] [place] [address] [address] [place] [phone] Reagan Wu MD 04/02/2025 2:30 PM CDT Office Visit [facility] Cardiology [address] [facility] [address] [place] [address] Angela Mckoy NP S/P mitral valve repair (Primary Dx); 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 [address] [place] [address] Reagan Wu MD Labs Only 03/24/2025 Telephone [facility] [address] [facility] [address] [place] [address] Reagna Wu MD 02/24/2025 Results Follow-Up [address] [address] Reagan Wu MD Basic metabolic panel, POCT hemoglobin A1c 02/24/2025 1:20 PM CDT Office Visit [address] [address] Reagan Wu MD Medicare annual wellness visit, subsequent (Primary Dx); Chronic heart failure with preserved ejection fraction (HCC); Borderline diabetes; Depressed mood 02/16/2025 Telephone [facility] Epilepsy [address] [facility] 6th [place] [address] [place] [address] Jagdish Hopkins MD PhD from Last 3 Months Allergies Active Allergy Reactions Criticality Noted Date [...] Dr. 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 Overview (06/16/2022): Added automatically from request for surgery [id number] Lymphedema of both lower extremities 07/22/2021 Hypothyroidism 11/17/2020 Anemia 11/17/2020 Penetrating foot wound, left, sequela 10/12/2020 (HFpEF) heart failure with preserved ejection fr action 06/25/2020 Other pulmonary embolism without acute cor pulmo nale 04/05/2020 Obesity (BMI 35.0-39.9 without comorbidity) 12/07 Borderline diabetes 10/13/2019 S/P mitral valve repair 08/26/2019 Assessment & Plan (09/11/2019 1:09 PM SALES AND CATERING COORDINATOR): S/p MV repair and TV repair on 08/26/2019 Continue post operative care Increase activity as tolerated- PT/OT following S/p RD/DCCV- now in NSR- will continue amiodarone. Ongoing Rehab planning ([facility])--insurance approval pending Assessment & Plan (09/04/2019 4:46 [...] 11/18/2018 Assessment & Plan (09/09/2019 10:48 AM SALES AND CATERING COORDINATOR): Continue BID keppra Assessment & Plan (08/31/2019 [...] 20 Assessment & Plan (09/11/2019 1:11 PM SALES AND CATERING COORDINATOR): RD/DCCV 09/05/2019- converted to NSR and continues [...] 020 Assessment & Plan (09/11/2019 1:12 PM SALES AND CATERING COORDINATOR): KUB 09/04 showed improving ileus- + BM [...] 9 Assessment & Plan (09/11/2019 1:11 PM SALES AND CATERING COORDINATOR): Baseline creat on admission 1.04- peak at [...] Recent Lab Results: Recent Labs Lab Units 09/03/19222109/02/198 09/01/19 2111 SODIUM mmol/L 138 141 138 POTASSIUM [...] for reversal -wean sedation to off -PSV 10/7.5/40% X30min with intent to extubate -NPPV tonight [...] Anticipated post CPB. Post CPB RD on GRADING MACHINE OPERATOR 3mcg/kg/min reported as minimal residual MR and no TR, normal BiV function. EPW placed and set AAI 80. CI > 3 on arrival to ICU with PAP 2/3 systemic -GRADING MACHINE OPERATOR @ 3, no wean overnight in setting of cardiorenal syndrome -EPW set VVI backup 60 Assessment & Plan (08/30/2019 2:52 AM CDT): Anticipated post CPB. Post CPB RD on GRADING MACHINE OPERATOR 3mcg/kg/min reported as minimal residual MR and no TR, normal BiV function. EPW placed and set AAI 80. CI > 3 on arrival to ICU with PAP 2/3 systemic -GRADING MACHINE OPERATOR @ 2, no wean currently -EPW set AAI 90 - consider GRADING MACHINE OPERATOR wean today with normal SCVO2. Assessment & Plan (08/29/2019 3:24 AM CDT): Anticipated post CPB. Post CPB RD on GRADING MACHINE OPERATOR 3mcg/kg/min reported as minimal residual MR and no TR, normal BiV function. EPW placed and set AAI 80. CI > 3 on arrival to ICU with PAP 2/3 systemic -GRADING MACHINE OPERATOR @ 2, no wean currently -EPW set AAI 90 Assessment & Plan (08/28/2019 2:49 AM CDT): Anticipated post CPB. Post CPB RD on GRADING MACHINE OPERATOR 3mcg/kg/min reported as minimal residual MR and no TR, normal BiV function. EPW placed and set AAI 80. CI > 3 on arrival to ICU with PAP 2/3 systemic -GRADING MACHINE OPERATOR @ 3, recheck SVO2 in AM -EPW set AAI 90 Assessment & Plan (08/27/2019 12:14 AM CDT): Anticipated post CPB. Post CPB RD on GRADING MACHINE OPERATOR 3mcg/kg/min reported as minimal residual MR and no TR, normal BiV function. EPW placed and set AAI 80. CI > 3 on arrival to ICU with PAP 2/3 systemic -start GRADING MACHINE OPERATOR wean Q4hr by 1mcg/kg/min for CI > 2.2 starting at 18:00 (post extubation) -EPW set AAI 90 Assessment & Plan (08/26/2019 5:02 PM CDT): Anticipated post CPB. Post CPB RD on GRADING MACHINE OPERATOR 3mcg/kg/min reported as minimal residual MR and no TR, normal BiV function. EPW placed and set AAI 80. CI > 3 on arrival to ICU with PAP 2/3 systemic -start GRADING MACHINE OPERATOR wean Q4hr by 1mcg/kg/min for CI > [...] (07/10/2019): Added automatically from request for surgery [id number] Eczema 10/18/2017 03/10/2019 Pulmonary hypertension 06/13/201709/09 Mitral valve insufficiency 06/11/2017 1 Thyroid nodule 05/21/2017 09/09/2019 Localized swelling of lower leg 05/16/2017 12/02/2019 Welches hump 03/21/2017 12/02/2019 Chronic cough 02/07/2017 03/10/2019 Lower urinary tract symptoms 02/07/2017 09/09/2019 Borderline diabetes mellitus 02/07/2017 09/09/2019 Altered level of consciousness 11/25/2014 09/05/2019 Overview (02/09/2017): Transient alteration of awareness Headache 11/25/2014 03/10/2019 Overview (02/09/2017): Worsening headaches Immunizations Immunization Administration Dates Next Due Influenza, [...] (Arexvy) 11/11/2023 Tdap 07/14/2015 ZOSTER Recombinant 03/08/2023,12/08/2022 Social History Tobacco Use Types Packs/Day Years [...] and Family Once a week 09/01/2019 Attends Mormonism Services 1 to 4 times per year [...] on file Legal Sex Male 2:21 AM SALES AND CATERING COORDINATOR Gender Identity Not on file Sexual Orientation Not on file Last Filed Vital Signs Vital Sign Reading [...] 04/02/2025 2:25 PM CDT Plan of Treatment Not on file Medical Devices Implanted Type Area General Labor Device Identifier Shelf Expiration Date Model / Serial / Lot ResQ™ Medical [employer] [id number] Angio-Seal Evolution 6fr .035in Guidewire Bypass Tube Suture - [id number] Implanted:Qty: 1 on 07/01/2019 by Hemal Amezcua MD at [facility] [employer] [id number] / / Medtronic Card Vasc Surgery [id number] Cg Future Od32 Mm Eyelet Design Cross Sectional Profile Alloy Stiffener Band Annuloplasty 638 - [id number] - [id number] Implanted:Qty: 1 on 08/26/2019 by Gracie Parker MD at [facility] N/A: Heart Medtronic Inc 04/21/2024 [id number] / [id number] / Description:Mitral position Medtronic Inc [id number] Tri-Ad 2 Raul 34mm Tricuspid Valve Band Annuloplasty Model 900sfc - [id number] - [id number] Implanted:Qty: 1 on 08/26/2019 by Gracie Parker MD at [facility] N/A: Heart Medtronic Inc 07/03/2023 [id number] / [id number] / Davol Inc/C R Bard Ventralex St Sepra Sorbaflex 2.5in [place] Open Bioresorbable [id number] - [id number] Implanted:Qty: 1 on 07/04/2024 by Florencio Irvin MD at [facility] N/A: Umbilical Davol Inc/C R Bard 01/02/2025 [id number] / / [id number] Procedures Procedure Name Priority Date/Time Associated Diagnosis [...] CDT) Glucose 104 74 - 200 mg/dL [facility] BUN 28(H) 18 - 23 mg/dL [facility] Creatinine 1.1 0.7 - 1.3 mg/dL [facility] BUN/Creat Ratio 25 Ratio [facility] eGFR 61 mL/min/1.7 3m2 [facility] Calcium 9.8 8.8 - 10.2 mg/dL [facility] Sodium 136 135 - 145 mEq/L [facility] Potassium 4.8 3.5 - 5.1 mEq/L [facility] Chloride 96(L) 98 - 107 mEq/L [facility] CO2 33.9(H) 22.0 - 32.0 mEq/L [facility] Anion Gap 6 3 - 12 mEq/L [facility] Blood 02/24/2025 1:38 PM CDT 02/24/2025 1:48 PM CDT Reagan Wu MD LAB BLOOD ORDERABLES F inal Result Performing Organization Address City/State/[facility] Co de Phone Number [facility] [address] [place] [address] from Last 3 Months Insurance HUMANA CHOICE MEDICARE PPO Member Subscriber Plan / Payer (Ef fective 2018-Present) Name:JUSTIN OCASIO Relation to Subscriber:Self Name:uJstin Ocasio Payer ID:[id number] (NAIC) Type:MEDICARE RISK OTHER Address: [address] HUMANA CHOICE MEDICARE PPO HUMANA CHOICE MEDICARE PPO HUMANA CHOICE MEDICARE PPO HUMANA CHOICE MEDICARE PPO HUMANA CHOICE MEDICARE PPO IDPA Advance Directives For more information, please contact: [phone] * Full Code (Latest Code Status on [...] 3:28 PM 09/11/2019 8:48 PM Care Teams Junior Architect Relationship Specialty Start Date End Date Reagan Wu MD PCP - General 05/31/17 Onur Ku MD Referring Physician Cardiology 05/14/19 Leeann Robert, DPM [address] [place] [address] Consulting Physician Foot and Ankle Surg 06/29/22
--- OUTSIDE RECORDS SUMMARY | 2025-04-14 16:58 | XMS_ITS | Clinical Summary ---
Author Organization [facility] Address [address] [place] [address] Care Team Providers Care Structural Design Engineer Name Role Phone Maurisio Gupta MD Primary Care Provider [phone] Source Comments [facility],non-owned Affiliates and Associated Physician Practices is amultiple site organization consisting of ambulatory clinics and hospital sitesin [place], [place], [place] and [place]. This disclosure is being madepursuant to the Care Everywhere program and may not contain all information available regarding this patient. Last updated 18.[facility] Allergies Active Allergy Reactions Criticality Noted Date Comments Penicillins Urticaria,Shortness of Breath High 08/14 Medications * This document contains information received from the source organization and may not represent a complete record from that organization. * Be aware that medications may not be up to date on this document. Alwaysverify current medications with the patient. dutasteride (AVODART) 0.5 MG capsule Take 0.5 mg by mouth once daily. Active amLODIPine (NORVASC) 5 MG tablet Take 5 mg by mouth once daily. Active citalopram (CELEXA) 40 MG tablet Take 40 mg by mouth once daily. Active VIT B6-VIT [id number] 3 ACIDS PO Take by mouth. Active levothyroxine (SYNTHROID) 50 MCG tablet Take 50 mcg by mouth daily before breakfast. Active losartan-hydroch lorothiazide (HYZAAR) 100-25 MG tablet Take 1 Tab by mouth once daily. Active simvastatin (ZOCOR) 20 MG tablet Take 20 mg by mouth at bedtime. Active Family History Medical History Relation Name Comments Stroke Father Diabetes Maternal Grandmother Cancer Mother gastric, pancre as, liver, breast Heart Failure Paternal Grandfather Heart Failure Paternal Grandmother Relation Name Status Comments Father Maternal Grandmother Mother Paternal Grandfather Paternal Grandmother Social History Tobacco Use Types Packs/Day Years Used Date Smoking Tobacco: Never Smokeless Tobacco: Never Alcohol Use Standard Drinks/Week Comments No 0 (1 standard drink = 0.6 oz pur e alcohol) Sex and Gender Information Value Date Recorded Sex Assigned at Not on file 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 Gender Identity Not on file Sexual Orientation Not on file Last Filed Vital Signs Vital Sign Reading Time Taken Comments Blood Pressure - - Pulse - - Temperature - - Respiratory Rate - - Oxygen Saturation - - Inhaled Oxygen Concentration - - Weight 117 kg (258 lb) 08/14/2011 11:54 AM CDT Height 185.4 cm (6' 1) 08/14/2011 11:54 AM CDT Body Mass Index 34.04 08/14/2011 11:54 AM CDT Plan of Treatment Health Maintenance Due Date Last Done Comments DTAP/TDAP/TD VACCINES (1 - Tdap) 1961 PNEUMOCOCCAL VACCINE 50+ (1 of 1 - PCV) 1992 ZOSTER VACCINE (1 of 2) 1992 Respiratory Syncytial Virus (RSV) Vaccine Pt: or over 60 yrs (1 - 1-dose 75+ series) 2017 COVID-19 VACCINE ( - 2023-2 5 season) 2024 DEPRESSION SCREENING 11/05/2024 INFLUENZA VACCINE (Season Ended) 2025 HEPATITIS B VACCINE Aged Out No longe r eligible based on patient's age to complete this topic HIB VACCINE Aged Out No longer eligi ble based on patient's age to complete this topic HPV VACCINE Aged Out No longer eligi ble based on patient's age to complete this topic MENINGOCOCCAL (Group B) VACC INE SHARED DECISION-MAKING Aged Out No longer eligibl e based on patient's age to complete this topic MENINGOCOCCAL GROUPS A/C/Y/W VACCINE Aged Out No longer eligible b ased on patient's age to complete this topic Care Teams Structural Design Engineer Relationship Specialty Start Date End Date Maurisio Gupta MD [address] [place] [address] [facility] - General 08/11/11
--- OUTSIDE RECORDS SUMMARY | 2025-04-14 16:58 | XMS_ITS | Continuity of Care Document ---
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 Name Role Phone Nikunj PT,MPT,ATC, Nigel Unavailable Unavai lable Procedures Procedure Date Therapeutic Exercise Therapeutic Activities Neuromuscular Re-Ed Therapeutic Exercise Therapeutic Activities Neuromuscular Re-Ed Therapeutic Exercise Therapeutic Activities Neuromuscular Re-Ed Progress Note Therapeutic Exercise Therapeutic Activities Neuromuscular Re-Ed Therapeutic Exercise Therapeutic Activities Neuromuscular Re-Ed Therapeutic Exercise Therapeutic Activities Neuromuscular Re-Ed Therapeutic Exercise Therapeutic Activities Neuromuscular Re-Ed Therapeutic Exercise Therapeutic Activities Neuromuscular Re-Ed Therapeutic Exercise Therapeutic Activities Neuromuscular Re-Ed Therapeutic Exercise Therapeutic Activities Neuromuscular Re-Ed Therapeutic Exercise Therapeutic Activities Neuromuscular Re-Ed PT Evaluation Moderate Complexity Therapeutic Exercise Therapeutic Activities Advance Directives Directive Yes / No Effective Date File Name No Information Encounters Encounter Description Practice Location Reason(s) For Visit Diagnoses Date Provider Providers Copied on Encounter [facility] [address], [place], [place], [id number], tel:[phone] [facility] Charcot's joint, left ankle [facility] footPain [facility] Referring Provider: Blanka hirsch, [address], [place], [address]. tel:[phone] [facility], [place], [place], [id number], tel:[phone] [facility] Charcot's joint, left ankle and footPain in left foot [facility]. Referring Provider: Blanka hirsch [address], [place], [address]. tel:[phone] [facility], [place], [place], [id number], tel:[phone] [facility]ets[facility] Charcot's joint, left ankle and footPain in left foot [place], . Referring Provider: Blanka hirsch, [address], [place], [address]. tel:[phone] [facility], [place], [place], [id number], tel:[phone] [facility] Charcot's joint, left ankle and footPain in left foot [facility]. Referring Provider: Blanka hirsch, [address], [place], [address]. tel:[phone] [facility], [place], [place], [id number], tel:[phone] [facility]ets[facility] Charcot's joint, left ankle and footPain in left foot [facility] [place]. Referring Provider: Blanka hirsch, [address], [place], [address]. tel:[phone] [facility], [place], [place], [id number], [place] tel:[phone] [facility]ets[facility] Charcot's joint, left ankle and footPain in left foot [facility] [place] Referring Provider: Blanka hirsch, [address], [place], [address]. tel:[phone] [facility], [place], [place], [id number], [place] tel:[phone] [facility]ets[facility] Charcot's joint, left ankle and footPain in left foot [facility] [place] Referring Provider: Blanka hirsch, [address], [place], [address]. tel:[phone] [facility], [place], [place], [id number], [place] tel:[phone] [facility]etson Charcot's joint, left ankle and footPain in left foot [facility] [place] Referring Provider: Blanka hirsch, [address], [place], [address]. tel:[phone] [facility], [place], [place], [id number], [place] tel:[phone] [facility]etson Charcot's joint, left ankle and footPain in left foot [facility] [place] Referring Provider: Blanka hirsch, [address], [place], [address]. tel:[phone] [facility], [place], [place], [id number], [place] tel:[phone] [facility]etson Charcot's joint, left ankle and footPain in left foot [facility]. Referring Provider: Blanka hirsch, [address], [place], [address]. tel:[phone] [facility], [place], [place], [id number], tel:[phone] Stetson Charcot's joint, left ankle and footPain in left foot [facility]. Referring Provider: Blanka hirsch, [address], [place], [address]. tel:[phone] [facility], [address], [place], [place], [id number], tel:[phone] Stetson Charcot's joint, left ankle and footPain in left foot [facility]. Family History Family Member Type Diagnosis Age At Onset No Information Payers Payer name Insurance type Covered alliance party ID Authorzeldaa kingston(s) [employer] Medicare Replacement [id number] Social History Type Description Quantity Date Captured Comments Sex Male Smoking Status No Information Chief Complaint And Reason For Visit No Information Reason For Referral Reason For Referral No Information History Of Present Illness Encounter Date Complaint History Of Prese nt Illness No Information Functional Status Date Functional Assessmen t No Information Instructions Date Instruction Additional Infor mation No Information Assessments Type Assessment Date No Information Patient Care Teams Name Effective Dates (start - stop) Status Members No Information
== END 2025-04-14 15:32 | disposition home or self-care (01) ==
DX: I50.32 Chronic diastolic (congestive) heart failure (principal)
CPT/HCPCS: 36415; 80048; 83880

== ENCOUNTER 2025-08-13 15:10 | Emergency (ER) | payer MEDICARE, SELFPAY ==
--- NOTE | ~2025-08-13 | CT_ITS ---
Exam: CT chest without contrast Clinical History: [Fall. ] Comparison: [ CTA chest 01/12/2022] Technique: Multiple axial CT images of the chest without with IV contrast. Sagittal and coronal reformatted images were obtained. FINDINGS: Lungs and pleura: [ Visualized tracheobronchial tree is patent. No pneumothorax. No pleural effusion. There are a few small opacities in the lower lungs which represent atelectasis/scarring or infiltrates.] Mediastinum and pulmonary mignon: [ No mass or adenopathy.] Axillary/intramammary and supraclavicular: [ No mass or adenopathy.] Heart and great vessels: [ Normal heart size.[ [ No pericardial effusion.] [ No aneurysm.] Coronary artery calcifications. Moderate atherosclerotic disease in the thoracic aorta. Thyroid gland: Thyroid gland is heterogeneous with bilateral thyroid nodules similar to the study from 01/12/2022. Consider a thyroid ultrasound. Upper Abdomen: Stable bilateral adrenal nodules. The gallbladder is hyperechoic possibly due to sludge or vicarious excretion of contrast. Osseous structures: There is a moderately displaced and comminuted fracture of the medial aspect of the left clavicle. There is a small to moderate amount of fluid adjacent to the fracture likely a hematoma. Small amount of fat stranding and nonspecific fluid along the left chest wall. Additional findings: [ None of significance.] IMPRESSION: 1. There is a moderately displaced and comminuted fracture of the medial aspect of the left clavicle. Small to moderate amount of fluid adjacent to the fracture likely a hematoma. Small amount of fat stranding and nonspecific fluid along the left chest wall. Consider a CTA of the chest to evaluate for injury to vessels in the chest adjacent to the medial clavicular fracture. 2. There are a few small opacities in the lower lungs which represents atelectasis/scarring or infiltrates.] 3. The gallbladder is hyperechoic possibly due to sludge or vicarious excretion of contrast. Other etiologies are possible. 4. Thyroid gland is heterogeneous with bilateral thyroid nodules similar to the study from 01/12/2022. Consider a thyroid ultrasound. Reviewed, dictated and finalized at location Q. IMPRESSION: 1. There is a moderately displaced and comminuted fracture of the medial aspect of the left clavicle. Small to moderate amount of fluid adjacent to the fractu re likely a hematoma. Small amount of fat stranding and nonspecific fluid along the left chest wall. Consider a CTA of the chest to evaluate for injury to ves sels in the chest adjacent to the medial clavicular fracture. 2. There are a few small opacities in the lower lungs which represents atelecta sis/scarring or infiltrates.] 3. The gallbladder is hyperechoic possibly due to sludge or vicarious excretion of contrast. Other etiologies are possible. 4. Thyroid gland is heterogeneous with bilateral thyroid nodules similar to the study from 01/12/2022. Consider a thyroid ultrasound.
--- NOTE | ~2025-08-13 | CT_ITS ---
EXAMINATION: CT brain wo con DATE: 08/13/2025 15:36 INDICATION: Fall TECHNIQUE: Computed tomography (CT) of the head was performed without intravenous contrast. Sagittal and coronal reconstructions were performed. The mA was adjusted according to patient size. Iterative reconstruction technique was employed. The dose-length product was 832.33 mGy-cm. COMPARISON: head CT dated 04/02/2016 FINDINGS: No fracture. No acute intracranial hemorrhage, acute infarction or abnormal extra axial fluid collection. There is mild scattered white matter hypoattenuation consistent with chronic small vessel ischemic disease. Symmetric prominence of the sulci consistent with mild age-appropriate diffuse cerebral volume loss. Ventricles are normal and symmetric. No mass/mass effect. Mild mucosal thickening in the right ethmoid and sphenoid sinuses. The orbits and mastoid air cells are normal. Stable appearance of chronic lytic lesions in the calvarium slightly to the right of the vertex likely secondary to arachnoid granulations. IMPRESSION: 1. Aging brain. No fracture or acute intracranial process. Reviewed, dictated and finalized at location A.
--- NOTE | ~2025-08-13 | CT_ITS ---
EXAMINATION: CTA chest DATE: 08/13/2025 18:03 INDICATION: Fall with left clavicle fracture concern for adjacent vascular injury on prior CT. TECHNIQUE: Computed tomographic angiography (CTA) of the chest was performed with 100 mL Omnipaque-350 intravenous contrast. Automated exposure control and iterative reconstruction technique were employed. The dose-length product was 1016.6 mGy-cm. COMPARISON: CT dated 08/23/2025 FINDINGS: Mild left basilar atelectasis along the elevated left hemidiaphragm. No evident pulmonary hemorrhage, pulmonary edema, pneumonia, pleural effusion or pneumothorax. Heart size is normal. Postoperative change of prior median sternotomy and mitral and tricuspid valve repairs. No pericardial effusion. Enla rgement of the central pulmonary arteries consistent with pulmonary arterial hypertension. 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 This tapers to normal caliber of 3.2 cm level of the tj. No dissection.. No acute aortic injury or acute injury of the arteries arising from the arch. Again noted is the hematoma surrounding a comminuted extra- articular fracture at the medial aspect of the left clavicle. There is up to 2 cm anterior displacement of the diaphyseal fragment relative to the medial head fragment. Couple left-sided thyroid nodules measuring up to 2.3 cm. No pathologically enlarged thoracic lymphadenopathy. Thoracic kyphosis with chronic appearing moderate anterior wedging at T7 and moderate spondylosis. Moderate to severe lower cervical spondylosis. IMPRESSION: 1. Displaced comminuted extra articular fracture at the medial left clavicle. No associated vascular injury or other acute cardiopulmonary disease. 2. 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 3. Enlargement of the central pulmonary arteries consistent with pulmonary arterial hypertension. 4. Couple left thyroid nodules measuring up to 2.3 cm. Recommend thyroid ultrasound for risk stratification. Reviewed, dictated and finalized at location A. IMPRESSION: 1. Displaced comminuted extra articular fracture at the medial left clavicle. N o associated vascular injury or other acute cardiopulmonary disease. 2. 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 3. Enlargement of the central pulmonary arteries consistent with pulmonary denita rial hypertension. 4. Couple left thyroid nodules measuring up to 2.3 cm. Recommend thyroid ultras ound for risk stratification.
--- NOTE | ~2025-08-13 | CT_ITS ---
EXAMINATION: CT cervical spine wo con COMPARISON: None HISTORY: fall TECHNIQUE: Axial images were obtained through the spine without IV contrast. Coronal, sagittal reconstruction images were obtained from the axial views. CT scan performed using dose optimization techniques including the following automated exposure control; adjustment of mA and/or kV; use of iterative reconstruction technique. Automatic exposure control was used to reduce radiation dose. Permanent radiation dose record is archived to PACS. FINDINGS: The vertebral heights are intact. No fracture or subluxation. There is severe loss of disc height at C5-6 and C6-7 with moderate to severe canal and foraminal stenosis, outpatient MRI is recommended Soft tissues left thyroid nodule 2 x 2 cm, outpatient ultrasound recommended. Impression: No acute abnormality. Reviewed, dictated and finalized at location P. Impression: No acute abnormality.
[2025-08-13 15:19] VITALS: BP 119/61; PULSE 82; RESP 19; TEMP 36.4; O2SAT 95
--- NOTE | 2025-08-13 15:26 | ED.GENADULT ---
HPI - General Adult General Chief complaint: Extremity Injury, Upper <May Kidd March, - Last Filed: 08/13/25 15:27> Stated complaint: Left shoulder injury-fell Sunday, On Eliquis <May Kidd March, - Last Filed: 08/13/25 15:27> Time Seen by Provider: 08/13/25 15:26 <May Kidd March, TURNER SPLITTER MACHINE OPERATOR - Last Filed: 08/13/25 15:27> Focused HPI: Ayo Rodriguez is an 84 y.o male who presents with reports of having a mechanical ground level fall 2 days ago and having pain to the left side of chest, hit his head, neck and chest. Denies LOC. He is on Eliquis + ecchymosis/ hematoma across left chest GENERAL: Well-appearing, well-nourished, and in no acute distress. HEAD: Normocephalic, atraumatic. CHEST: ?No respiratory distress. HEART: Regular rate and rhythm.? NEURO: ?Alert and oriented x3. Patient screened in triage and initial orders placed.? ?Additional care and disposition to be based upon?diagnostic testing and treatment. <May Kidd March, - Last Filed: 08/13/25 15:27> Focused HPI: Ayo Rodriguez is an 84 y.o male who presents with reports of having a mechanical ground level fall 2 days ago and having pain to the left side of chest, hit his head, neck and chest. Denies LOC. He is on Eliquis + ecchymosis/ hematoma across left chest. GENERAL: Well-appearing, well-nourished, and in no acute distress. HEAD: Normocephalic, atraumatic. CHEST: ?No respiratory distress. HEART: Regular rate and rhythm.? NEURO: ?Alert and oriented x3. Patient screened in triage and initial orders placed.? ?Additional care and disposition to be based upon?diagnostic testing and treatment. <Shazia Lopez, TURNER SPLITTER MACHINE OPERATOR - Last Filed: 08/13/25 19:38> History of Present Illness HPI narrative: I agree with the HPI above. <Shazia Lopez TURNER SPLITTER MACHINE OPERATOR - Last Filed: 08/13/25 19:38> Related Data Home medications: Home Medications ?Medication ?Instructions ?Recorded ?Confirmed ?Last Taken ?Type citalopram 40 mg tablet 40 mg PO QAM 03/19/20 03/02/25 03/19/20 History levetiracetam 500 mg tablet 1,000 mg PO BID 03/19/20 03/02/25 03/19/20 History losartan 50 mg tablet 50 mg PO DAILY 03/19/20 03/02/25 03/19/20 History apixaban 5 mg tablet (Eliquis) 5 mg PO BID 01/12/22 08/13/25 08/13/25 History nitroglycerin 0.4 mg sublingual See Rx Instructions .Route .COMPLEX 01/12/22 03/02/25 Unknown History tablet (Nitrostat) rosuvastatin 5 mg tablet 5 mg PO HS 01/12/22 03/02/25 Unknown History trazodone 50 mg tablet 50 mg PO HS 01/12/22 03/02/25 Unknown History ciclopirox 0.77 % topical cream 1 applic topical BID 03/17/24 03/02/25 Unknown History heparin, porcine (PF) 10 unit/mL 10 unit IV .Prn 03/17/24 03/02/25 Unknown History intravenous syringe hydrocodone 5 mg-acetaminophen 325 1 tablet PO Q6H PRN 03/17/24 03/02/25 Unknown History mg tablet omeprazole 20 mg capsule,delayed 20 mg PO DAILY 03/17/24 03/02/25 Unknown History release torsemide 20 mg tablet 20 mg PO QAM 03/17/24 03/02/25 Unknown History <May Moulton, TURNER SPLITTER MACHINE OPERATOR - Last Filed: 08/13/25 15:27> Allergies/adverse reactions: Allergies Allergy/AdvReac Type Severity Reaction Status Date / Time Penicillins Allergy Unknown Other Verified 08/13/25 15:11 tomato Allergy Unknown Other Verified 08/13/25 15:11 <May Moulton, TURNER SPLITTER MACHINE OPERATOR - Last Filed: 08/13/25 15:27> Review of Systems Review of Systems: All systems reviewed & are unremarkable except as noted in HPI and below <Shazia Lopez APRN - Last Filed: 08/13/25 19:38> PMFSH Past Medical History Medical History: Medical History Atrial fibrillation, new onset Acute diastolic CHF (congestive heart failure) History of deep venous thrombosis or pulmonary embolus History of left lower extremity DVT and multiple PEs in the setting of left lower extremity infection and hospitalization in March 2020 Pulmonary embolism Atrial fibrillation Neuropathic ulcer of left foot with fat layer exposed Depression Anxiety Kidney stones Erectile dysfunction Gastritis and duodenitis Noted on EGD August [address] Costa Esophagitis determined by biopsy Noted from EGD August [address] Gupta Moderate pulmonary arterial systolic hypertension Noted on echocardiogram from 2015 with RVSP of 50 Diastolic dysfunction Noted on echocardiogram from 2015 Seizure disorder Multiple episodes of transient global amnesia thought to be possible partial seizure Obstructive sleep apnea With polysomnogram in 2009 recommending return to sleep lab for ASV titration as the patient was still having apneic events with settings of 18/14 on BiPAP Tricuspid valve insufficiency, non-rheumatic Status post repair [facility] August 2019 Peroneal DVT (deep venous thrombosis) Hyperlipidemia Hypertension Epistaxis Mitral valve insufficiency Status post repair [facility] August 2019 <May Moulton APRN - Last Filed: 08/13/25 15:27> Surgical History Surgical History: Surgical History History of tricuspid valve repair August 2019 at [facility] with postoperative course complicated by by acute renal failure, postop ileus, metabolic acidosis, and respiratory failure History of mitral valve repair History of appendectomy History of inguinal hernia repair, bilateral <May Moulton APRN - Last Filed: 08/13/25 15:27> Family History Family History: Family History Father , In his 80s Cerebrovascular accident Heart disease Mother , In her 80s Carcinoma of colon Diabetes mellitus Heart disease <May Moulton TURNER SPLITTER MACHINE OPERATOR - Last Filed: 08/13/25 15:27> Social History Social History: Social History Social History: Primary care physician: Dr. Reagan Wu in [place] Boarding Kennel Or Cattery Operator: Wilder Walker Code status: Full code August 2021. Patient has a caregiver who sees him daily. His daughter Sri mclain is his durable power of real estate attorney. Smoking status: Never smoker Second hand tobacco smoke exposure: No Alcohol intake: never Drinks per week: 1 Alcohol use details: Rarely drinks alcohol and only in moderation. About 1 drink a month at most. Substance use: never Substance use type: does not use Do You Feel Safe in your Home?: Yes Lack of Transportation: No Lack of Food: Never True Current Housing: I Have Housing Concerned About Future Housing: No Difficulty Paying Gas/Electric Bills: No Difficulty Paying for Meds: No Currently Unemployed: No Education: Decline to Answer Difficulty w/ Childcare or Family Care: YES Living arrangements: with family Additional living arrangements comments: Patient lives with his 53 years who has dementia. He is her primary caregiver. He has 1 daughter who lives in [place]. Occupation/Education: retired Additional occupation/education comments: He worked for the [employer] for about 15 years. 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 He had to quit working altogether about 4 years ago when his 's dementia worsened. Gender identity (if verbalized by the patient): Male Spiritual care concerns: No Agree to blood products: No <May Moulton, TURNER SPLITTER MACHINE OPERATOR - Last Filed: 08/13/25 15:27> Exam Narrative: GENERAL: Well appearing, obese, non-toxic, in no acute distress. HEAD: Normocephalic, atraumatic. NECK: Supple. No adenopathy, no masses. RESPIRATORY: Airway patent, respirations nonlabored. Clear to auscultation bilaterally, no rales, rhonchi, wheezing. CARDIOVASCULAR: Regular rate and rhythm without murmurs, rubs, or gallops. Peripheral pulses 2+ and equal bilaterally. ABDOMINAL: Soft, nontender, nondistended, no hepatosplenomegaly. Normoactive BS. MUSCULOSKELETAL: Moves all extremities. Strength/ROM intact without gross deformities. Tender to L clavicle with palpation SKIN: Warm, dry, normal color. No rashes. + large hematoma L clavicle and over L chest NEURO: A&O X3. Speech clear. Cranial nerves II-XII intact. No ataxic movements. PSYCHIATRIC: Appropriate mood and affect. Normal interaction. <Shazia Lopez, TURNER SPLITTER MACHINE OPERATOR - Last Filed: 08/13/25 19:38> Course COLOR TECHNICIAN/PA Physician Supervision This visit was performed by both a physician and an APC. I performed all aspects of the MDM as documented. <Porter Kirby MD - Last Filed: 08/13/25 22:37> Vital Signs Vital signs: Vital Signs Temperature 97.6 F 08/13/25 15:19 Pulse Rate 82 08/13/25 15:19 Respiratory Rate 19 08/13/25 15:19 Blood Pressure 119/61 08/13/25 15:19 Pulse Oximetry 95 08/13/25 15:19 Oxygen Delivery Room Air 08/13/25 15:19 Temperature 97.6 F 08/13/25 15:19 Pulse Rate 62 08/13/25 18:58 Respiratory Rate 20 08/13/25 18:58 Blood Pressure 120/68 08/13/25 18:58 Pulse Oximetry 99 08/13/25 18:58 Oxygen Delivery Room Air 08/13/25 15:19 <May Moulton, TURNER SPLITTER MACHINE OPERATOR - Last Filed: 08/13/25 15:27> Vital Signs Temperature 97.6 F 08/13/25 15:19 Pulse Rate 82 08/13/25 15:19 Respiratory Rate 19 08/13/25 15:19 Blood Pressure 119/61 08/13/25 15:19 Pulse Oximetry 95 08/13/25 15:19 Oxygen Delivery Room Air 08/13/25 15:19 Temperature 97.6 F 08/13/25 15:19 Pulse Rate 62 08/13/25 18:58 Respiratory Rate 20 08/13/25 18:58 Blood Pressure 120/68 08/13/25 18:58 Pulse Oximetry 99 08/13/25 18:58 Oxygen Delivery Room Air 08/13/25 15:19 <Shazia Lopez, TURNER SPLITTER MACHINE OPERATOR - Last Filed: 08/13/25 19:38> Vital Signs Temperature 97.6 F 08/13/25 15:19 Pulse Rate 82 08/13/25 15:19 Respiratory Rate 19 08/13/25 15:19 Blood Pressure 119/61 08/13/25 15:19 Pulse Oximetry 95 08/13/25 15:19 Oxygen Delivery Room Air 08/13/25 15:19 Temperature 97.6 F 08/13/25 15:19 Pulse Rate 62 08/13/25 18:58 Respiratory Rate 20 08/13/25 18:58 Blood Pressure 120/68 08/13/25 18:58 Pulse Oximetry 99 08/13/25 18:58 Oxygen Delivery Room Air 08/13/25 15:19 <Porter Kirby MD - Last Filed: 08/13/25 22:37> Medical Decision Making MDM Narrative Medical decision making narrative: Ayo Rodriguez is an 84 y.o male who presents with reports of having a mechanical ground level fall 2 days ago and having pain to the left side of chest, hit his head, neck and chest. Denies LOC. He is on Eliquis + ecchymosis/ hematoma across left chest. Labs Ordered: CBC, CMP, PTT, INR Imaging Ordered: CT head, CT cervical spine, CT chest, CTA chest Medications Ordered: Patient declines pain medicine. Results: Pt's CT chest scan indicates . There is a moderately displaced and comminuted fracture of the medial aspect of the left clavicle. Small to moderate amount of fluid adjacent to the fracture likely a hematoma. Small amount of fat stranding and nonspecific fluid along the left chest wall. Consider a CTA of the chest to evaluate for injury to vessels in the chest adjacent to the medial clavicular fracture. 2. There are a few small opacities in the lower lungs which represents atelectasis/scarring or infiltrates.] 3. The gallbladder is hyperechoic possibly due to sludge or vicarious excretion of contrast. Other etiologies are possible. 4. Thyroid gland is heterogeneous with bilateral thyroid nodules similar to the study from 01/12/2022. Consider a thyroid ultrasound. Pt's CTA indicates 1. Displaced comminuted extra articular fracture at the medial left clavicle. No associated vascular injury or other acute cardiopulmonary disease. 2. 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 3. Enlargement of the central pulmonary arteries consistent with pulmonary arterial hypertension. 4. Couple left thyroid nodules measuring up to 2.3 cm. Recommend thyroid ultrasound for risk stratification. Diagnosis: Left clavicle fracture Consults: cardiology (outpatient), pt has an established system software developer at [place]. Patient Education/Shared MDM: Results of lab work and imaging shared with patient. He continues to deny significant pain and declines pain medication. Patient strongly advised to follow-up with his PCP and system software developer (regarding his aortic anerysm) as soon as possible. He will be discharged home with a prescription for Wilson. Pt has a caregiver at home (who is present during the visit) who will help him manage his care after discharge. Strict return precautions provided. Patient verbalized understanding and is in agreement with plan. Vital signs stable at time of discharge. All questions answered. <Shazia Lopez, TURNER SPLITTER MACHINE OPERATOR - Last Filed: 08/13/25 19:38> Differential Diagnosis Differential Diagnosis: Clavicle fracture, rib fracture, vessel injury, internal bleeding <Shazia Lopez, TURNER SPLITTER MACHINE OPERATOR - Last Filed: 08/13/25 19:38> Vital Signs Vital Signs: Vital Signs Temperature 97.6 F 08/13/25 15:19 Pulse Rate 82 08/13/25 15:19 Respiratory Rate 19 08/13/25 15:19 Blood Pressure 119/61 08/13/25 15:19 Pulse Oximetry 95 08/13/25 15:19 Oxygen Delivery Room Air 08/13/25 15:19 Temperature 97.6 F 08/13/25 15:19 Pulse Rate 62 08/13/25 18:58 Respiratory Rate 20 08/13/25 18:58 Blood Pressure 120/68 08/13/25 18:58 Pulse Oximetry 99 08/13/25 18:58 Oxygen Delivery Room Air 08/13/25 15:19 <May Moulton, TURNER SPLITTER MACHINE OPERATOR - Last Filed: 08/13/25 15:27> Vital Signs Temperature 97.6 F 08/13/25 15:19 Pulse Rate 82 08/13/25 15:19 Respiratory Rate 19 08/13/25 15:19 Blood Pressure 119/61 08/13/25 15:19 Pulse Oximetry 95 08/13/25 15:19 Oxygen Delivery Room Air 08/13/25 15:19 Temperature 97.6 F 08/13/25 15:19 Pulse Rate 62 08/13/25 18:58 Respiratory Rate 20 08/13/25 18:58 Blood Pressure 120/68 08/13/25 18:58 Pulse Oximetry 99 08/13/25 18:58 Oxygen Delivery Room Air 08/13/25 15:19 <Shazia Lopez, TURNER SPLITTER MACHINE OPERATOR - Last Filed: 08/13/25 19:38> Vital Signs Temperature 97.6 F 08/13/25 15:19 Pulse Rate 82 08/13/25 15:19 Respiratory Rate 19 08/13/25 15:19 Blood Pressure 119/61 08/13/25 15:19 Pulse Oximetry 95 08/13/25 15:19 Oxygen Delivery Room Air 08/13/25 15:19 Temperature 97.6 F 08/13/25 15:19 Pulse Rate 62 08/13/25 18:58 Respiratory Rate 20 08/13/25 18:58 Blood Pressure 120/68 08/13/25 18:58 Pulse Oximetry 99 08/13/25 18:58 Oxygen Delivery Room Air 08/13/25 15:19 <Porter Kirby MD - Last Filed: 08/13/25 22:37> Lab Data Lab results reviewed: Yes I reviewed the patient's lab results. <Shazia Lopez APRN - Last Filed: 08/13/25 19:38> Result diagrams: 08/13/25 16:11 08/13/25 16:11 <May Moulton TURNER SPLITTER MACHINE OPERATOR - Last Filed: 08/13/25 15:27> Labs: Lab Results 08/13/25 Range/Units 16:11 WBC 7.6 (4.5-10.0) K/mm3 RBC 3.81 L (4.6-6.20) M/mm3 Hgb 12.3 L (14.0-18.0) g/dL Hct 36.8 L (42.0-52.0) % MCV 96.6 (80-100) fl MCH 32.3 (26-34) pg MCHC 33.4 (32-36) g/dl RDW 12.5 (11.5-14.5) % Plt Count 135 L (150-375) k/mm3 MPV 10.1 (7.4-10.4) fl Immature Gran % (Auto) 0.4 (0-0.5) % Neut % (Auto) 70.9 (45.5-73.1) % Lymph % (Auto) 18.0 L (18.3-44.2) % [place] % (Auto) 8.9 H (2.6-8.5) % Eos % (Auto) 1.1 (0-4.4) % Baso % (Auto) 0.7 (0.2-1.2) % Lymph # (Auto) 1.36 (0.9-3.2) K/mm3 [place] # (Auto) 0.7 H (0.1-0.6) K/mm3 Eos # (Auto) 0.1 (0-0.3) K/mm3 Baso # (Auto) 0.1 (0.0-0.1) K/mm3 Abs Immat Gran (auto) 0.03 (0.00-0.031) K/mm3 Absolute Neuts (auto) 5.4 (1.3-6.7) K/mm3 Absolute Nucleated RBC 0.000 (0.0-0.012) K/mm3 Nucleated RBC % 0.0 (0.0-0.2) % PT 16.1 H (11.1-14.7) Seconds INR 1.3 APTT 36.5 (22.3-36.8) Seconds Sodium 137 (137-145) mmol/L Potassium 3.7 (3.4-5.0) mmol/L Chloride 96 L (98-107) mmol/L Carbon Dioxide 34 H (22-30) mmol/L Anion Gap 7 (4-12) mmol/L BUN 22 H (9-20) mg/dL Creatinine 1.26 (0.7-1.3) mg/dL Estim Creat Clear Calc 51 ml/min Estimated GFR 55 L (59 - ) Glucose 109 (65-110) mg/dL Calcium 8.9 (8.4-10.2) mg/dL Total Bilirubin 0.6 (0.2-1.3) mg/dL AST 31 (17-59) U/L ALT 22 (6-50) U/L Alkaline Phosphatase 60 (38-126) U/L Total Protein 7.4 (6.3-8.2) g/dL Albumin 4.4 (3.5-5.1) g/dL <May Moulton, TURNER SPLITTER MACHINE OPERATOR - Last Filed: 08/13/25 15:27> Lab Results 08/13/25 Range/Units 16:11 WBC 7.6 (4.5-10.0) K/mm3 RBC 3.81 L (4.6-6.20) M/mm3 Hgb 12.3 L (14.0-18.0) g/dL Hct 36.8 L (42.0-52.0) % MCV 96.6 (80-100) fl MCH 32.3 (26-34) pg MCHC 33.4 (32-36) g/dl RDW 12.5 (11.5-14.5) % Plt Count 135 L (150-375) k/mm3 MPV 10.1 (7.4-10.4) fl Immature Gran % (Auto) 0.4 (0-0.5) % Neut % (Auto) 70.9 (45.5-73.1) % Lymph % (Auto) 18.0 L (18.3-44.2) % [place] % (Auto) 8.9 H (2.6-8.5) % Eos % (Auto) 1.1 (0-4.4) % Baso % (Auto) 0.7 (0.2-1.2) % Lymph # (Auto) 1.36 (0.9-3.2) K/mm3 [place] # (Auto) 0.7 H (0.1-0.6) K/mm3 Eos # (Auto) 0.1 (0-0.3) K/mm3 Baso # (Auto) 0.1 (0.0-0.1) K/mm3 Abs Immat Gran (auto) 0.03 (0.00-0.031) K/mm3 Absolute Neuts (auto) 5.4 (1.3-6.7) K/mm3 Absolute Nucleated RBC 0.000 (0.0-0.012) K/mm3 Nucleated RBC % 0.0 (0.0-0.2) % PT 16.1 H (11.1-14.7) Seconds INR 1.3 APTT 36.5 (22.3-36.8) Seconds Sodium 137 (137-145) mmol/L Potassium 3.7 (3.4-5.0) mmol/L Chloride 96 L (98-107) mmol/L Carbon Dioxide 34 H (22-30) mmol/L Anion Gap 7 (4-12) mmol/L BUN 22 H (9-20) mg/dL Creatinine 1.26 (0.7-1.3) mg/dL Estim Creat Clear Calc 51 ml/min Estimated GFR 55 L (59 - ) Glucose 109 (65-110) mg/dL Calcium 8.9 (8.4-10.2) mg/dL Total Bilirubin 0.6 (0.2-1.3) mg/dL AST 31 (17-59) U/L ALT 22 (6-50) U/L Alkaline Phosphatase 60 (38-126) U/L Total Protein 7.4 (6.3-8.2) g/dL Albumin 4.4 (3.5-5.1) g/dL <Shazia Lopez, TURNER SPLITTER MACHINE OPERATOR - Last Filed: 08/13/25 19:38> Lab Results 08/13/25 Range/Units 16:11 WBC 7.6 (4.5-10.0) K/mm3 RBC 3.81 L (4.6-6.20) M/mm3 Hgb 12.3 L (14.0-18.0) g/dL Hct 36.8 L (42.0-52.0) % MCV 96.6 (80-100) fl MCH 32.3 (26-34) pg MCHC 33.4 (32-36) g/dl RDW 12.5 (11.5-14.5) % Plt Count 135 L (150-375) k/mm3 MPV 10.1 (7.4-10.4) fl Immature Gran % (Auto) 0.4 (0-0.5) % Neut % (Auto) 70.9 (45.5-73.1) % Lymph % (Auto) 18.0 L (18.3-44.2) % [place] % (Auto) 8.9 H (2.6-8.5) % Eos % (Auto) 1.1 (0-4.4) % Baso % (Auto) 0.7 (0.2-1.2) % Lymph # (Auto) 1.36 (0.9-3.2) K/mm3 [place] # (Auto) 0.7 H (0.1-0.6) K/mm3 Eos # (Auto) 0.1 (0-0.3) K/mm3 Baso # (Auto) 0.1 (0.0-0.1) K/mm3 Abs Immat Gran (auto) 0.03 (0.00-0.031) K/mm3 Absolute Neuts (auto) 5.4 (1.3-6.7) K/mm3 Absolute Nucleated RBC 0.000 (0.0-0.012) K/mm3 Nucleated RBC % 0.0 (0.0-0.2) % PT 16.1 H (11.1-14.7) Seconds INR 1.3 APTT 36.5 (22.3-36.8) Seconds Sodium 137 (137-145) mmol/L Potassium 3.7 (3.4-5.0) mmol/L Chloride 96 L (98-107) mmol/L Carbon Dioxide 34 H (22-30) mmol/L Anion Gap 7 (4-12) mmol/L BUN 22 H (9-20) mg/dL Creatinine 1.26 (0.7-1.3) mg/dL Estim Creat Clear Calc 51 ml/min Estimated GFR 55 L (59 - ) Glucose 109 (65-110) mg/dL Calcium 8.9 (8.4-10.2) mg/dL Total Bilirubin 0.6 (0.2-1.3) mg/dL AST 31 (17-59) U/L ALT 22 (6-50) U/L Alkaline Phosphatase 60 (38-126) U/L Total Protein 7.4 (6.3-8.2) g/dL Albumin 4.4 (3.5-5.1) g/dL <Porter Kirby MD - Last Filed: 08/13/25 22:37> Imaging Data Attestation: I personally reviewed and interpreted this imaging study as follows: <Shazia Lopez APRN - Last Filed: 08/13/25 19:38> Radiologist's impression: Impressions Head CT 08/13/25 15:46 IMPRESSION: 1. Aging brain. No fracture or acute intracranial process. Cervical Spine CT 08/13/25 15:49 Impression: No acute abnormality. Chest CT 08/13/25 15:51 IMPRESSION: 1. There is a moderately displaced and comminuted fracture of the medial aspect of the left clavicle. Small to moderate amount of fluid adjacent to the fracture likely a hematoma. Small amount of fat stranding and nonspecific fluid along the left chest wall. Consider a CTA of the chest to evaluate for injury to vessels in the chest adjacent to the medial clavicular fracture. 2. There are a few small opacities in the lower lungs which represents atelectasis/scarring or infiltrates.] 3. The gallbladder is hyperechoic possibly due to sludge or vicarious excretion of contrast. Other etiologies are possible. 4. Thyroid gland is heterogeneous with bilateral thyroid nodules similar to the study from 01/12/2022. Consider a thyroid ultrasound. Chest CTA 08/13/25 18:16 IMPRESSION: 1. Displaced comminuted extra articular fracture at the medial left clavicle. No associated vascular injury or other acute cardiopulmonary disease. 2. 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 3. Enlargement of the central pulmonary arteries consistent with pulmonary arterial hypertension. 4. Couple left thyroid nodules measuring up to 2.3 cm. Recommend thyroid ultrasound for risk stratification. 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 Follow-up with primary care provider and your system software developer as soon as possible. Take all medications as prescribed, including regularly scheduled medications. You may take Tylenol or Wilson for pain control. <May Moulton, TURNER SPLITTER MACHINE OPERATOR - Last Filed: 08/13/25 15:27> Patient Language: Maltese <May Kidd March, TURNER SPLITTER MACHINE OPERATOR - Last Filed: 08/13/25 15:27> Prescriptions: New hydrocodone-acetaminophen 5-300 mg tablet 1 tablet PO Q6H PRN (Reason: pain) Qty: 10 0RF No Action ciclopirox 0.77 % cream 1 applic topical BID heparin, porcine (PF) 10 unit/mL syringe 10 unit IV .Prn Rx Instructions: administer after IV drug administration as part of [facility] protocol Administer 5ml. (50( units into IV catheter as needed for line care. hydrocodone-acetaminophen 5-325 mg tablet 1 tablet PO Q6H PRN omeprazole 20 mg capsule,delayed release(DR/EC) 20 mg PO DAILY torsemide 20 mg tablet 20 mg PO QAM mupirocin 2 % ointment 1 applic topical BID Qty: 22 3RF Rx Instructions: Intranasal losartan 50 mg Tablet 50 mg PO DAILY levetiracetam 500 mg tablet 1,000 mg PO BID citalopram 40 mg tablet 40 mg PO QAM trazodone 50 mg tablet 50 mg PO HS rosuvastatin 5 mg tablet 5 mg PO HS Eliquis 5 mg tablet 5 mg PO BID Rx Instructions: Take 1 tablet by mouth twice daily (morning and evening). Start pm of 03/31, end once instructed by PCP nitroglycerin [Nitrostat] 0.4 mg tablet, sublingual See Rx Instructions .ROUTE .COMPLEX Rx Instructions: See Protocol sublingually acetaminophen 500 mg Tablet 1,000 mg PO Q6H PRN (Reason: Mild Pain (1-3) Or Fever) 0RF amlodipine 10 mg Tablet 10 mg PO DAILY 30 Days Qty: 30 0RF <May Moulton APRN - Last Filed: 08/13/25 15:27> Follow-up/Referrals: UNKNOWN,DOCTOR [Primary Care Provider] <May Moulton APRN - Last Filed: 08/13/25 15:27> Time of Disposition: 19:35 <May Moulton APRN - Last Filed: 08/13/25 15:27> 19:35 <Shazia Lopez APRN - Last Filed: 08/13/25 19:38> 19:35 <Porter Kirby MD - Last Filed: 08/13/25 22:37>
[2025-08-13 16:17] LABS: Hematocrit 36.8 % (42.0-52.0); Hemoglobin 12.3 g/dL (14.0-18.0); Immature Granulocyte Percent A 0.4 % (0-0.5); Lymphocytes Absolute Auto 1.36 K/mm3 (0.9-3.2); Mean Corpuscular HGB Conc 33.4 g/dl (32-36); Mean Corpuscular Hemoglobin 32.3 pg (26-34); Mean Corpuscular Volume 96.6 fl (80-100); Nucleated Red Blood Cells Absolute Auto 0.000 K/mm3 (0.0-0.012); Nucleated Red Blood Cells Perc 0.0 % (0.0-0.2); Platelet Count Result 135 k/mm3 (150-375); Red Blood Count 3.81 M/mm3 (4.6-6.20); White Blood Count 7.6 K/mm3 (4.5-10.0)
[2025-08-13 16:31] LABS: Alanine Aminotransferase 22 U/L (6-50); Albumin Level 4.4 g/dL (3.5-5.1); Alkaline Phosphatase 60 U/L (38-126); Anion Gap 7 mmol/L (4-12); Aspartate Amino Transferase 31 U/L (17-59); Bilirubin,Total 0.6 mg/dL (0.2-1.3); Blood Urea Nitrogen 22 mg/dL (9-20); Calcium 8.9 mg/dL (8.4-10.2); Carbon Dioxide 34 mmol/L (22-30); Chloride 96 mmol/L (98-107); Estimated CRCL calculation 51 ml/min; Estimated Glomerular Filt Rate 55; Glucose 109 mg/dL (65-110); Potassium 3.7 mmol/L (3.4-5.0); Sodium 137 mmol/L (137-145); Total Protein 7.4 g/dL (6.3-8.2)
[2025-08-13 16:34] LABS: INR 1.3; Prothrombin Time 16.1 Seconds (11.1-14.7)
[2025-08-13 16:35] LABS: Partial Thromboplastin Time 36.5 Seconds (22.3-36.8)
[2025-08-13 18:58] VITALS: BP 120/68; PULSE 62; RESP 20; O2SAT 99
--- NOTE | 2025-08-13 19:01 | PC.NURSE ---
CMS INTACT AFTER SLING PLACED
== END 2025-08-13 20:00 | disposition home or self-care (01) ==
PROVIDERS: Nurse Practitioner Family; Emergency Provider Registered Nurse
DX: S42.012A Anterior displaced fracture of sternal end of left clavicle, initial encounter for closed fracture (principal); I71.22 Aneurysm of the aortic arch, without rupture; I48.91 Unspecified atrial fibrillation; I50.31 Acute diastolic (congestive) heart failure; I11.0 Hypertensive heart disease with heart failure; I27.21 Secondary pulmonary arterial hypertension; E78.5 Hyperlipidemia, unspecified; G47.33 Obstructive sleep apnea (adult) (pediatric); F32.A Depression, unspecified; F41.9 Anxiety disorder, unspecified; Z87.442 Personal history of urinary calculi; Z86.711 Personal history of pulmonary embolism; Z86.718 Personal history of other venous thrombosis and embolism; Z79.01 Long term (current) use of anticoagulants; Z79.899 Other long term (current) drug therapy; E04.1 Nontoxic single thyroid nodule; W18.30XA Fall on same level, unspecified, initial encounter
CPT/HCPCS: 36415; 70450; 71250; 71275; 72125; 80053; 85025; 85610; 85730; 99284; A4565; Q9967